=== PATIENT | male | born 1940 | race Caucasian/White ===

== ENCOUNTER 2016-05-02 10:43 | Inpatient (IN) | payer MEDICARE, OTHER ==
[2016-05-02] MEDS ORDERED: IPRATROPIUM/ALBUTEROL 3 ML VIAL NEB ONE ×2 (10:59→13:08)
--- NOTE | 2016-05-02 11:28 | RAD ---
Study: Single Frontal View of the Chest. Indication:sob Comparison: March 20, 2016. Impression: Cardiomegaly. Thoracic aorta tortuous. Atherosclerotic calcifications. Emphysematous changes of the lungs noted with patchy bibasilar scarring. No new consolidation, pleural effusion or pneumothorax. Electronically signed by: Juan Luis Arce MD 05/02/2016 11:25
[2016-05-02] MEDS ORDERED: methylPREDNISolone SODIUM SUC 125 MG/2 ML VIAL IV ONE (13:08)
[2016-05-02] MEDS ORDERED: cefTRIAXone SODIUM 1 GM in SODIUM CHL 0.9% 50ML MIN-BAG+ 50 ML IVPB ONE (13:08)
--- NOTE | 2016-05-02 13:11 | ED.PDOC ---
History of Present Illness - General Chief Complaint: Respiratory Problem Stated Complaint: shortness of breath Time Seen by Provider: 05/02/16 10:58 Source: patient Exam Limitations: no limitations - History of Present Illness Initial Comments: the patient is a 76-year-old male presenting to the emergency room secondary to symptoms of shortness of breath. He has had an escalation in his shortness of breath over the last week. He was seen in clinic 4 days ago. He doesn't think he's had any fevers. He feels like he does have a productive sputum but is having a hard time getting it up. He is weak. He does get more short of breath with lying back. He does have a history of CHF. He does have some mild edema today but states this is not new. No rash. No sore throat. He has had a runny nose. Timing/Duration: 1 week Severity: moderate Improving Factors: nothing Worsening Factors: movement Associated Symptoms: cough, malaise, shortness of breath Allergies/Adverse Reactions: Allergies Hydromorphone [From Dilaudid] Allergy (Verified 05/02/16 12:05) Sulfa Antibiotics Allergy (Verified 05/02/16 12:05) Rash itching Home Medications: Ambulatory Orders Enalapril Maleate 10 mg PO DAILY 01/17/15 Levothyroxine Sodium [Synthroid] 175 mcg PO DAILY 01/17/15 Metoprolol Succinate [Metoprolol Succinate ER] 50 mg PO DAILY 01/17/15 Simvastatin 40 mg PO EVENING 01/17/15 Tamsulosin HCl [Flomax] 0.4 mg PO BID 01/17/15 Arformoterol Tartrate [Brovana] 15 mcg INH BID 04/13/15 Budesonide Inhaler [Pulmicort Flexhaler] 1 puff INH BID 04/13/15 Finasteride 5 mg PO DAILY 04/13/15 Review of Systems - Review of Systems Constitutional: States: malaise EENTM: States: nose congestion Respiratory: States: cough, orthopnea, short of breath, wheezing Cardiology: States: edema Gastrointestinal/Abdominal: States: no symptoms reported Genitourinary: States: no symptoms reported Musculoskeletal: States: no symptoms reported Skin: States: no symptoms reported Neurological: States: no symptoms reported Endocrine: States: no symptoms reported All other Systems: No Change from Baseline Past Medical History (General) - Patient Medical History Hx Seizures: No Hx Stroke: No Hx Dementia: No Hx Asthma: No Hx of COPD: Yes Hx Cardiac Disorders: Yes Hx Congestive Heart Failure: No Hx Pacemaker: No Hx Hypertension: No Hx Thyroid Disease: Yes Hx Diabetes: No Hx Gastroesophageal Reflux: No Hx Renal Disease: No Hx Cancer: No Hx of HIV: No Hx Hepatitis C: No Hx MRSA: Yes - Finger 2015 MRSA Source:: Wound Surgical History: no surgical history - Vaccination History Hx Tetanus, Diphtheria Vaccination: Yes Hx Influenza Vaccination: No Hx Pneumococcal Vaccination: Yes - Social History Hx Tobacco Use: Yes Hx Chewing Tobacco Use: No Hx Alcohol Use: No Hx Substance Use: No Hx Substance Use Treatment: No Hx Depression: No Hx Physical Abuse: No Hx Emotional Abuse: No Hx Suspected Abuse: No - Activities of Daily Living Hospice Agency (if applicable):: None - Female History Patient is a Female of Child Bearing Age (10 -59 yrs old): No Patient : No Family Medical History - Family History Father Family History: Unknown Living Status: Physical Exam - Physical Exam General Appearance: Alert, Obvious distress Eye Exam: bilateral normal Ears, Nose, Throat: normal pharynx, nasal congestion, other - he does have chronic bilateral hearing loss Neck: non-tender, full range of motion, supple Respiratory: chest non-tender, respiratory distress, decreased breath sounds, accessory muscle use, wheezing Cardiovascular/Chest: regular rate, rhythm, no edema Peripheral Pulses: radial,right: 2+, radial,left: 2+, dorsalis pedis,right: 2+, dorsalis pedis,left: 2+ Gastrointestinal/Abdominal: non tender, soft Rectal Exam: deferred Back Exam: normal inspection Extremity: normal range of motion, non-tender, normal inspection, normal capillary refill Neurologic: no motor/sensory deficits, alert, normal mood/affect, oriented x 3 Skin Exam: normal color Comments: Vital Signs - 24 hr 05/02/16 05/02/16 05/02/16 10:50 11:05 11:20 Temperature 98.8 F Pulse Rate 76 Pulse Rate [ 77 73 pulse ox] Respiratory 32 H 24 30 H Rate Blood Pressure 115/56 114/73 [Left Arm] O2 Sat by Pulse 86 L 97 93 L Oximetry 05/02/16 05/02/16 05/02/16 12:00 12:06 12:22 Temperature Pulse Rate Pulse Rate [ 67 68 pulse ox] Respiratory 24 32 H 22 Rate Blood Pressure 94/58 117/65 [Left Arm] O2 Sat by Pulse 93 L 92 L Oximetry 05/02/16 13:03 Temperature Pulse Rate Pulse Rate [ 69 pulse ox] Respiratory 20 Rate Blood Pressure 120/75 [Left Arm] O2 Sat by Pulse 94 L Oximetry Progress - Progress Progress: 05/02/16 13:16 the patient is a 76-year-old male presenting with a acute on chronic COPD exacerbation. The patient is in moderate respiratory distress. He has received several nebulizer treatments which is helping some. He is on higher flow oxygen. He is receiving a dose of Solu-Medrol. He has received a dose of Rocephin as well though I don't see any evidence of overt pneumonia at this time. He does have some mild fluid overload. This is likely due to pulmonary resistance and for the moment I am avoiding diuretics. The patient will be brought in for the COPD exacerbation. He has a very high probability of rapid deterioration if sent home. - Results/Orders Results/Orders: Laboratory Tests 05/02/16 11:15 WBC 4.9 RBC 4.73 Hgb 13.2 L Hct 42.0 MCV 88.8 MCH 27.9 MCHC 31.4 L RDW 15.3 H Plt Count 127 L MPV 8.4 Absolute Neuts (auto) 3.00 Absolute Lymphs (auto) 1.00 Absolute Monos (auto) 0.60 Absolute Eos (auto) 0.20 Absolute Basos (auto) 0.00 Neutrophils % 61.7 Lymphocytes % 20.8 Monocytes % 12.1 H Eosinophils % 5.0 Basophils % 0.4 PT 11.5 INR 1.020 PTT (SP) 30.0 Sodium 145 Potassium 4.5 Chloride 100 L Carbon Dioxide 40 H Anion Gap 9.5 L BUN 22 H Creatinine 1.21 BUN/Creatinine Ratio 18.2 Random Glucose 126 H Serum Osmolality 293.6 Calcium 9.1 Total Bilirubin 0.6 AST 21 ALT 15 Alkaline Phosphatase 50 Creatine Kinase 265 H* CK-MB (CK-2) 5.2 H* CK-MB (CK-2) % 1.96 Troponin I 0.02 B-Natriuretic Peptide 48.6 Serum Total Protein 6.8 Albumin 3.9 Globulin 2.9 Albumin/Globulin Ratio 1.3 chest x-ray is consistent with COPD. No overt large pneumonia or evidence of new fluid overload EKG shows normal sinus rhythm. Poor R-wave progression in anterior leads. No acute ST segment changes otherwise concerning for ischemia. Departure - Departure Clinical Impression: COPD exacerbation Disposition: Admit Patient Condition: Serious Home Medications: Ambulatory Orders Enalapril Maleate 10 mg PO DAILY 01/17/15 Levothyroxine Sodium [Synthroid] 175 mcg PO DAILY 01/17/15 Metoprolol Succinate [Metoprolol Succinate ER] 50 mg PO DAILY 01/17/15 Simvastatin 40 mg PO EVENING 01/17/15 Tamsulosin HCl [Flomax] 0.4 mg PO BID 01/17/15 Arformoterol Tartrate [Brovana] 15 mcg INH BID 04/13/15 Budesonide Inhaler [Pulmicort Flexhaler] 1 puff INH BID 04/13/15 Finasteride 5 mg PO DAILY 04/13/15 Decision To Admit - Decistion To Admit Decision to Admit Reason: Medical Nature Decision to Admit Date: 05/02/16 Decision to Admit Time: 13:18
[2016-05-02] MEDS ORDERED: methylPREDNISolone SODIUM SUC 125 MG/2 ML VIAL ONE (14:12)
[2016-05-02] MEDS ORDERED: cefTRIAXone SODIUM 1 GM VIAL ONE (14:12)
[2016-05-02] MEDS ORDERED: SODIUM CHL 0.9% 50ML MIN-BAG+ 50 ML IVPB ONE (14:12)
--- NOTE | 2016-05-02 14:52 | HP ---
SUPERVISING PHYSICIAN: Drew Viera MD CHIEF COMPLAINT: Increasing shortness of breath. HISTORY OF PRESENT ILLNESS: Mr. Graham is a 76 year-old male patient who presented to the Emergency Department complaining of worsening shortness of breath. He has noted that his shortness of breath over the last week has been slowly worsening. He was seen in the clinic on 04/11/16 with complaints of coughing, subjective fever, weakness and edema. He was then given a prescription for Levaquin for 10 days, prednisone tapering Dosepak and instructed to increase his Lasix to twice a day until his swelling had decreased. A chest x-ray in the clinic per radiology interpretation on showed just hyperextended lungs but no infiltrates or effusions noted. He denies that he has been running fever but has been slowly producing am more productive cough but having a difficult getting the sputum enough. He has noticed that he has slowly weakened over the last several weeks and has significant shortness of breath with any supine position. He does have a history of congestive heart failure and has had some mild edema over the last several days which he was given the Lasix for previously. It is noted that in the last week, his son who had pancreatic cancer recently passed and he has had a lot of family in the house but denies anyone that has been ill. However, he has been out of his routine for his medications and stuff periodically and feels like maybe this has resulted in some of his worsening in shortness of breath. He does wear chronic 02, 24 hours. Given that he has had a significant decrease in his clinical condition with worsening of his chronic obstructive pulmonary disease and having to respond inadequately to treatment in the last week for acute bronchitis, now with a worsening purulent sputum and increase in dyspnea, the patient will be admitted to the medical/surgical floor for continuation of treatment and evaluation. PAST MEDICAL HISTORY: 1. Benign prostatic hypertrophy. 2. Coronary artery disease. 3. Chronic obstructive pulmonary disease requiring chronic 02. 4. Hypertension. 5. Hypothyroidism. PAST SURGICAL HISTORY: 1. Coronary artery stent placement. 2. Vasectomy. 3. Colonoscopy in 2007. CURRENT MEDICATIONS: 1. Ketoconazole 2% external b.i.d. 3. Lasix 40 mg b.i.d. 4. Probiotic one tablet daily. 5. Potassium chloride 10 mEq daily. 6. Bactroban 2% ointment daily. 7. Prednisone 20 mg daily. 8.. Recently finished Levaquin 5 mg daily for 10 days. 9. Simvastatin 40 mg at bedtime. 10. Metoprolol 50 mg. 11. Enalapril 10 mg daily. 12. Pulmicort 1 puff inhaled twice a day. 13. Finasteride 5 mg daily. 14. Brovana 15 mcg twice a day 15. Synthroid 175 mcg daily. 16. Flomax 0.4 mg twice a day. ALLERGIES: HYDROMORPHONE AND SULFA ANTIBIOTIC FAMILY HISTORY: Positive for colon cancer. SOCIAL HISTORY: Patient is retired. He is , has 4 children, one son recently from pancreatic cancer. He lives in [place]. He is noted to be a current smoker, smoking anywhere from a half to one pack a day. He does drink alcohol on a social basis. REVIEW OF SYSTEMS: CONSTITUTIONAL: Denies any fevers, chills, unintentional weight loss or gain but notes he has increase in fatigue. HEENT: He is extremely hard of hearing. He wears bilateral hearing aids. He denies any rhinorrhea or sore throats. CARDIOVASCULAR: Denies chest pains but notes he has orthopnea and some pedal edema and worsening dyspnea on exertion as noted in the history of present illness. RESPIRATORY: Notes increasing cough and increasing dyspnea as noted in the history of present illness. GASTROINTESTINAL: Denies abdominal pain, constipation, diarrhea or nausea. GENITOURINARY: He does have a history of elevated PSA and benign prostatic hypertrophy. He denies any dysuria or any other significant urinary symptoms. PHYSICAL EXAMINATION: VITAL SIGNS: Temperature 98.8, 02 saturation initially 86% on nasal cannula at 2 liters with significant respirations at 32. Blood pressure 115/56, heart rate 77. After treatment with Duoneb and prior to admission to the medical/ surgical floor, the patient was showing respirations of 20 to 22, saturation 94 % on nasal cannula at 3 liters with a blood pressure of 111/66. Admission weight was 113.3 kg. GENERAL: The patient is alert and on examination in the Emergency Department he did show to be in some obvious distress secondary to increasing efforts to breathe, however, after breathing treatments and at time of medical/surgical floor admission the patient was in no acute distress. He was showing continued purse-lip breathing which he notes is his normal pattern and he was alert and oriented x 3. HEENT: Tympanic membranes are not visualized secondary to bilateral hearing aids. Oropharynx was pink, moist without any lesions. There was just some mild nasal congestion noted but no drainage. NECK: No jugular venous distention. CHEST: Notable for decreased breath sounds throughout and some mild accessory muscle use initially with diffuse inspiratory and expiratory wheezing. CARDIOVASCULAR: Regular rate and rhythm without appreciable murmurs, rubs, or gallops. ABDOMEN: Soft, non-tender, positive bowel sounds. EXTREMITIES: No cyanosis, clubbing, or edema. NEUROLOGIC: He is alert and oriented x 3. Cranial nerves II through XII are grossly intact. Facial features were symmetrical. Extraocular movements were within normal limits. There was no notable neuromotor deficits. LABORATORY: White count 4.9, hemoglobin 13.2, hematocrit 42.0, platelet count 127,000, differential showed no left shift. Coagulation studies showed a normal PT/PTT. Chemistries showed a potassium of 4.5, carbon dioxide 40, BUN 22 , creatinine 1.21, glucose 126, liver functions within normal limits. CPK elevated at 265 but troponin was 0.02. Alkaline phosphatase 50. Urinalysis pending. BNP 48.6. MICROBIOLOGY: Blood cultures were completed. Influenza A antigen prior to admission was noted to be negative for both A and B. Sputum cultures pending. RADIOLOGY: Chest x-ray in the Emergency Department prior to admission per radiology interpretation showed emphysematous changes in the lungs with patchy bibasilar scarring but no new consolidations, pleural effusions or pneumothorax. ASSESSMENT: 1. Acute exacerbation of chronic obstructive pulmonary disease having failed to respond to outpatient treatment plan with concerns now for early development of pneumonia with radiographic evidence of bibasilar opacities with patient being hypoxic at 85% on 2 liters nasal cannula at rest. 2. History of peripheral edema likely secondary to his cor pulmonale from advanced chronic obstructive pulmonary disease resulting in some right-sided failure with no echocardiogram available upon review of medical records. 3. Chronic obstructive pulmonary disease in a smoker currently using 23/10. 4. Benign prostatic hypertrophy with history of previous elevated PSA. 5. Coronary artery disease. 6. Hypertension. 7. Hypothyroidism. PLAN: The patient was admitted per his chronic chronic obstructive pulmonary disease exacerbation. He was in moderate respiratory distress initially in the Emergency Room, however, with breathing treatments he did improve. He was given Solu-Medrol 125 mg and started on Rocephin. Will plan to start him on azithromycin as well as the Rocephin with concerns for bilateral pneumonia likely community acquired having recently been on a 10-day course of Levaquin. Will start him on DVT prophylaxis as per protocol. Will start him back on his medications once they have been updated in the electronic medical records. Will anticipate his length of stay to be 2 to 3 days. Until the, we will continue to monitor the patient closely. At time discharge the patient will need close followup with his primary care physician, Dr. Rea. #[id number] [facility] [place]
[2016-05-02] MEDS ORDERED: ACETAMINOPHEN 325 MG TAB PO PRN (16:36)
[2016-05-02] MEDS ORDERED: ALBUTEROL SULFATE 2.5 MG/3 ML VIAL NEB PRN (16:36)
[2016-05-02] MEDS ORDERED: SODIUM CHLORIDE 0.9% (FLUSH) 10 ML SYG IV PRN (16:36)
[2016-05-02] MEDS ORDERED: IV SET AND CAP CHANGE INJ INJ SCH (17:00)
[2016-05-02] MEDS ORDERED: AZITHROMYCIN IV 500 MG VIAL IVPB ONE (17:31)
[2016-05-02] MEDS ORDERED: SODIUM CHLORIDE 0.9% 250ML 250 ML ONE (17:31)
[2016-05-02] MEDS: AZITHROMYCIN IV 500 MG in SODIUM CHLORIDE 0.9% 250ML 250 ML IVPB SCH (17:37)
[2016-05-02] MEDS: IPRATROPIUM/ALBUTEROL 3 ML VIAL NEB SCH ×2 (18:06→20:40)
--- NOTE | 2016-05-02 18:14 | PCM.CORE ---
Physician DVT/VTE - Nurse DVT Assessment & Total Each Risk Factor Represents 3 Points: Age over 75 years, Medical PT with Hx of GA, CHF, Severe infection/sepsis Each Risk Factor is 1 Point: Serious Lung disease (pnemonia <1month, COPD, emphysema,etc) DVT Assessment Score: 7 - 5 or more Very High Risk Treatments: Early Ambulation *, Sequential Compression Device Pharmacological: Enoxaparin 40mg SQ Daily
[2016-05-02] MEDS: ENOXAPARIN SODIUM 40 MG/0.4 ML SYG SUBCU SCH (18:32)
[2016-05-02] MEDS: methylPREDNISolone SODIUM SUC 125 MG/2 ML VIAL IV SCH (21:14)
[2016-05-03] MEDS: methylPREDNISolone SODIUM SUC 125 MG/2 ML VIAL IV SCH ×4 (03:15→21:12)
[2016-05-03] MEDS: PANTOPRAZOLE SODIUM IV 40 MG VIAL IV SCH (06:06)
--- NOTE | 2016-05-03 07:32 | RAD ---
EXAM DESCRIPTION: XR CHEST 2 VIEWS CLINICAL HISTORY: Pneumonia COMPARISON: 05/02/2016 TECHNIQUE: Two-views of the chest. FINDINGS: Heart size top limits normal. Tortuous atherosclerotic aorta. Hyperinflation related to COPD. No pulmonary edema, alveolar infiltrate or effusion No acute bony abnormality IMPRESSION: Hyperinflation related to COPD No acute infiltrate Electronically signed by: Drew Ott MD 05/03/2016 07:30
[2016-05-03] MEDS ORDERED: SODIUM CHLORIDE 0.9% 250ML 250 ML ONE (07:39)
[2016-05-03] MEDS ORDERED: SODIUM CHL 0.9% 50ML MIN-BAG+ 50 ML IVPB ONE (07:39)
[2016-05-03] MEDS ORDERED: cefTRIAXone SODIUM 1 GM VIAL ONE (07:39)
[2016-05-03] MEDS ORDERED: AZITHROMYCIN IV 500 MG VIAL IVPB ONE (07:40)
[2016-05-03] MEDS: IPRATROPIUM/ALBUTEROL 3 ML VIAL NEB SCH ×4 (08:35→20:37)
[2016-05-03] MEDS ORDERED: cefTRIAXone SODIUM 1 GM in SODIUM CHL 0.9% 50ML MIN-BAG+ 50 ML IVPB SCH (13:00)
[2016-05-03] MEDS ORDERED: SODIUM CHLORIDE 0.9% 10 ML VIAL INJ PRN (13:05)
[2016-05-03] MEDS ORDERED: NON-FORMULARY MEDICATION 1 EA MIS (Levothyroxine Sodium [Synthroid] 175 MCG) PO SCH (16:15)
[2016-05-03] MEDS ORDERED: NON-FORMULARY MEDICATION 1 EA MIS (Enalapril Maleate [Enalapril Maleate] 10 MG) PO SCH (16:15)
[2016-05-03] MEDS ORDERED: METOPROLOL TARTRATE 50 MG TAB PO SCH (16:30)
--- NOTE | 2016-05-03 17:02 | PN ---
DATE: 05/03/16 SUBJECTIVE: The patient is sitting up in the bed and appears to be less dyspneic than yesterday. He is very [id number] and has been unable to satisfactorily have hearing aids fitted for his benefit. Appetite is fairly good. He is able to talk in fairly complete sentences. He has not been ambulating so an ambulation study is ordered. He has been on 3 liters instead of the usual 2 liters and even then his saturations have only been 91 to 93% and will require reevaluation. On continued corticosteroids which will be tapered and continued with respiratory hygiene treatments. OBJECTIVE: Afebrile, pulse 88, blood pressure 120/71, pulse oximetry 92% on 3 liters. LUNGS: Have some diminished breath sounds with occasional rhonchi, especially lateral lung moore more on the left than the right. HEART: Tones are regular. ABDOMEN: Obese. Noted to have his CPAP machine here which will be endeavored to be used either during the day when dyspneic or at nighttime to assist with sleep. No significant pedal edema at this time. LABORATORY: White count 4,300, hemoglobin 12.1. INR 1.02. Chemistries showed potassium 4.8, BUN 30, creatinine 1.2. CO2 has come down from 40 to 33, glucose 178. Blood cultures negative. Influenza A and B negative. Repeat chest x-ray that was performed earlier this morning showed COPD with no acute infiltrates present. ASSESSMENT: 1. Chronic obstructive pulmonary disease with an acute exacerbation requiring additional pulmonary hygiene, bronchodilation and corticosteroid administration. 2. Fairly significant hypoxia with pulse oximetry 85% on 2 liters and now 91% on 3 liters with him normally being on 2 liters at home suggesting a change with continued ambulation studies to help evaluate the physiology. 3. History of peripheral edema probably secondary to cor pulmonale with advanced chronic obstructive pulmonary disease. 4. Chronic tobacco abuser in the past having stopped in the past. 5. History of benign prostatic hypertrophy with a history of previously elevated PSA. 6. History of coronary artery disease. 7. History of hypertension. 8. History of hypothyroidism on supplementation. PLAN: Will cut back on the Solu-Medrol. Continue pulmonary hygiene. Await results of ambulation studies and reevaluate in the morning at which time the patient will be able to continue with outpatient therapy as stable. #[id number] [facility]
[2016-05-03] MEDS ORDERED: LEVOTHYROXINE SODIUM 0.075 MG TAB ONE (17:38)
[2016-05-03] MEDS ORDERED: ENALAPRIL MALEATE 5 MG TAB ONE ×2 (17:38→17:52)
[2016-05-03] MEDS ORDERED: METOPROLOL TARTRATE 25 MG TAB ONE (17:38)
[2016-05-03] MEDS: AZITHROMYCIN IV 500 MG in SODIUM CHLORIDE 0.9% 250ML 250 ML IVPB SCH (17:46)
[2016-05-03] MEDS: POTASSIUM CHLORIDE 10 MEQ TAB PO SCH (17:46)
[2016-05-03] MEDS: ENOXAPARIN SODIUM 40 MG/0.4 ML SYG SUBCU SCH (17:55)
[2016-05-03] MEDS ORDERED: BUDESONIDE INH SCH (21:00)
[2016-05-03] MEDS ORDERED: NON-FORMULARY MEDICATION 1 EA MIS (Arformoterol Tartrate [Brovana] 15 MCG) INH SCH (21:00)
[2016-05-03] MEDS: TAMSULOSIN 0.4 MG CAP PO SCH (21:12)
[2016-05-04] MEDS: PANTOPRAZOLE SODIUM IV 40 MG VIAL IV SCH (06:13)
[2016-05-04] MEDS ORDERED: FINASTERIDE 5 MG TAB ONE (07:21)
[2016-05-04] MEDS ORDERED: SODIUM CHLORIDE 0.9% 250ML 0 ML ONE (07:21)
[2016-05-04] MEDS ORDERED: cefTRIAXone SODIUM 1 GM VIAL ONE (07:22)
[2016-05-04] MEDS ORDERED: SODIUM CHL 0.9% 50ML MIN-BAG+ 0 ML IVPB ONE (07:22)
[2016-05-04] MEDS ORDERED: METOPROLOL TARTRATE 50 MG TAB ONE (07:22)
[2016-05-04] MEDS ORDERED: ENALAPRIL MALEATE 5 MG TAB ONE (07:22)
[2016-05-04] MEDS ORDERED: AZITHROMYCIN IV 500 MG VIAL IVPB ONE (07:23)
[2016-05-04] MEDS ORDERED: METOPROLOL TARTRATE 50 MG TAB PO SCH (07:30)
[2016-05-04] MEDS: IPRATROPIUM/ALBUTEROL 3 ML VIAL NEB SCH ×2 (08:41→13:58)
[2016-05-04] MEDS: FUROSEMIDE 40 MG TAB PO SCH ×2 (08:55→08:56)
[2016-05-04] MEDS: TAMSULOSIN 0.4 MG CAP PO SCH (08:57)
[2016-05-04] MEDS: POTASSIUM CHLORIDE 10 MEQ TAB PO SCH (08:57)
[2016-05-04] MEDS: methylPREDNISolone SODIUM SUC 125 MG/2 ML VIAL IV SCH (08:58)
[2016-05-04] MEDS ORDERED: SODIUM CHLORIDE 0.9% (FLUSH) 10 ML SYG IV SCH (09:00)
[2016-05-04] MEDS ORDERED: NON-FORMULARY MEDICATION 1 EA MIS (Arformoterol Tartrate [Brovana] 15 MCG) INH SCH (09:00)
[2016-05-04] MEDS ORDERED: ENALAPRIL MALEATE 5 MG TAB PO SCH (09:00)
[2016-05-04] MEDS ORDERED: FINASTERIDE 5 MG TAB PO SCH (09:00)
[2016-05-04] MEDS ORDERED: BUDESONIDE INH SCH (09:00)
[2016-05-04 11:43] VITALS: BP 137/79; TEMP 97.3; O2SAT 95
--- NOTE | 2016-05-04 13:20 | DS ---
DISCHARGE DIAGNOSIS: 1. Chronic obstructive pulmonary disease with an acute exacerbation requiring additional pulmonary hygiene, bronchodilator treatment, and corticosteroid administration and education. 2. Significant hypoxia with pulse oximetry 85% on 2 liters, now improving to the point where he is able to continue with outpatient therapy. 3. History of peripheral edema, probably secondary to right sided heart failure with cor pulmonale with advanced chronic obstructive pulmonary disease evident. 4. Chronic tobacco use, having stopped in the past. 5. History of benign prostatic hypertrophy with previously elevated PSA. 6. History of coronary artery disease. 7. History of hypertension. 8. History of hypothyroidism on supplementation. 9. History of significant deafness requiring specialized ongoing care and reevaluation to assist his hearing. HISTORY OF PRESENT ILLNESS: This 76-year-old, white male was admitted to the hospital from the Emergency Room complaining of worsening shortness of breath. He was noted to have worsening condition over the week prior to admission. He has had some coughing, some weakness, and associated edema state. He had been on some Levaquin as an outpatient with prednisone tapering and not doing better , so was admitted to the hospital for specific increased intensity of treatment to prevent further worsening of his ongoing condition. He is on chronic oxygen all day long, usually at 2 liters, up to 3 liters when exerting, which will need to continue with special attention to his pulse oximetry. The patient was admitted to the hospital for a few days of more vigorous therapy with bronchodilators, pulmonary hygiene, corticosteroids and an antibiotic course to be initiated, having failed outpatient treatment. LABORATORY: CO2 initially was elevated at 40, down to 33. Potassium 4.8, BUN 30, creatinine 1.2, glucose 178, calcium normal at 9. Liver enzymes normal. Troponin 0.02. Beta natriuretic peptide 48, albumin 3.9. Blood cultures negative. Influenza A/B screen negative. Chest x-ray close to discharge does reveal evidence of chronic obstructive pulmonary disease, but no significant pulmonary edema or infiltrates evident. HOSPITAL COURSE: The patient was feeling improved on the day of discharge and was ready to have continued outpatient management with Dr. Rea. The patient' s condition and decisions to be made are discussed at length with the patient and his son and [id number]. PLAN: Discharge home with followup with Dr. Rea in a week. Dr. Rea will especially observe closely his emphysema. His significantly decreased hearing will need to have continued expert clinical followup and reevaluation even with second opinions as needed. See home medications to which is added a completed course of azithromycin for 4 days 250 mg daily and Ceftin 500 mg b.i.d. for 6 days, prednisone 10 mg daily for 20 days, and Bumex every other day as needed when gaining over 3 to 6 pounds with associated reduction in oral intake, #25 given on a p.r.n. basis only. He will use his medication nebulizer treatments faithfully. Use oxygen to keep pulse oximetry between 90% and 92% only. Breathe deeply and exhale through pursed lips. Increase walking to improve endurance and strength and part of his pulmonary rehab. Observe his dry weight daily and note of gaining of over 4 to 6 pounds at which time he can decrease fluid intake to less than 1500 mL per 24 hours and to take the Bumex every other day until his weight is down to a regular weight and edema is improved. Stay active. Return if not improving. [facility][id number] [facility]
[2016-05-05] MEDS ORDERED: LEVOTHYROXINE SODIUM PO SCH ×2 (06:30)
== END 2016-05-04 12:00 | disposition home or self-care (01) | DRG 192 ==
LOC: ER 10:43 → MS 14:50 → OBSVTOIN 14:50
PROVIDERS: ADMIT Nurse Practitioner Family; ATTEND Emergency Medicine
DX: J44.1 Chronic obstructive pulmonary disease with (acute) exacerbation (principal); R09.02 Hypoxemia; I27.81 Cor pulmonale (chronic); I11.0 Hypertensive heart disease with heart failure; I50.9 Heart failure, unspecified; N40.0 Benign prostatic hyperplasia without lower urinary tract symptoms; I25.10 Atherosclerotic heart disease of native coronary artery without angina pectoris; E03.9 Hypothyroidism, unspecified; H91.90 Unspecified hearing loss, unspecified ear; F17.210 Nicotine dependence, cigarettes, uncomplicated; Z99.81 Dependence on supplemental oxygen; Z95.5 Presence of coronary angioplasty implant and graft; Z79.52 Long term (current) use of systemic steroids; Z79.51 Long term (current) use of inhaled steroids; Z79.899 Other long term (current) drug therapy; Z88.2 Allergy status to sulfonamides; Z88.5 Allergy status to narcotic agent

== ENCOUNTER 2017-01-04 16:05 | Inpatient (IN) | payer MEDICARE, OTHER ==
[2017-01-04] MEDS ORDERED: methylPREDNISolone SODIUM SUC 125 MG/2 ML VIAL IV ONE (16:23)
[2017-01-04] MEDS ORDERED: IPRATROPIUM/ALBUTEROL 3 ML VIAL NEB ONE (16:24)
[2017-01-04] MEDS ORDERED: diphenhydrAMINE HCL 25 MG CAP PO ONE (16:24)
[2017-01-04] MEDS ORDERED: MONTELUKAST 10 MG TAB PO ONE (16:24)
[2017-01-04] MEDS ORDERED: ACETAMINOPHEN 325 MG TAB PO ONE (16:25)
--- NOTE | 2017-01-04 16:42 | RAD ---
EXAM DESCRIPTION: Chest,1 View CLINICAL HISTORY: sob, facial swelling COMPARISON: May 03, 2016 IMPRESSION: Single AP portable upright view of the chest shows enlargement of the cardiac silhouette with a left ventricular contour. There is tortuosity the thoracic aorta with calcifications of the aortic arch. Lungs are normally aerated and clear. No obvious pleural effusion or pneumothorax is seen. Electronically signed by: Miguel Angel John MD 01/04/2017 4:41 PM CDT
[2017-01-04] MEDS ORDERED: AZITHROMYCIN IV 500 MG in SODIUM CHLORIDE 0.9% 250ML 250 ML IVPB ONE (17:21)
[2017-01-04] MEDS ORDERED: cefTRIAXone SODIUM 1 GM in SODIUM CHL 0.9% 50ML MIN-BAG+ 50 ML IVPB ONE (17:21)
--- NOTE | 2017-01-04 17:33 | ED.PDOC ---
History of Present Illness - General Chief Complaint: Fever Stated Complaint: fever, sob Time Seen by Provider: 01/04/17 16:23 Source: patient, family Exam Limitations: no limitations - History of Present Illness Initial Comments: he patient is a 76-year-old male presenting to the emergency room secondary toprogressive shortness of breath over the last 24 hours with some associated facial swelling and conjunctivitis. The patient does have a fever. According to his relative he has had these episodes before that event related to allergic triggers. He has had multiple admissions for COPD exacerbations and has required BiPAP in the past. He did present to his primary care doctor today after which he was sent here. We do have records from his primary care doctor's office. the patient does have markedly increased work of breathing. His oxygen saturations are down to 72% on room air and 84% on his 2 L nasal cannula. He is up to 93% on 3-1/2 L here. He is not in pain. His cough is minimally productive. He does have significant facial swelling. There is no stridor. He is not itching. He does have a conjunctivitis present. Timing/Duration: 24 hours Severity: severe Improving Factors: nothing Worsening Factors: nothing Associated Symptoms: cough, fever/chills, loss of appetite, malaise, shortness of breath Allergies/Adverse Reactions: Allergies Hydromorphone [From Dilaudid] Allergy (Verified 01/04/17 16:37) Sulfa Antibiotics Allergy (Verified 01/04/17 16:37) Rash itching Home Medications: Ambulatory Orders Enalapril Maleate 10 mg PO DAILY 01/17/15 Levothyroxine Sodium [Synthroid] 175 mcg PO DAILY 01/17/15 Simvastatin 40 mg PO BEDTIME 01/17/15 Tamsulosin HCl [Flomax] 0.4 mg PO BID 01/17/15 Arformoterol Tartrate [Brovana] 15 mcg INH BID 04/13/15 Metoprolol Tartrate 50 mg PO DAILY 05/02/16 Finasteride [Proscar] 5 mg PO DAILY 01/04/17 Review of Systems - Review of Systems Constitutional: States: fever, malaise EENTM: States: nose congestion Respiratory: States: cough, short of breath, wheezing Cardiology: States: no symptoms reported Gastrointestinal/Abdominal: States: no symptoms reported Genitourinary: States: no symptoms reported Musculoskeletal: States: no symptoms reported Skin: States: no symptoms reported Neurological: States: no symptoms reported Endocrine: States: no symptoms reported All other Systems: No Change from Baseline Past Medical History (General) - Patient Medical History Hx Seizures: No Hx Stroke: No Hx Dementia: No Hx Asthma: No Hx of COPD: Yes Hx Cardiac Disorders: Yes Hx Congestive Heart Failure: No Hx Pacemaker: No Hx Hypertension: Yes Hx Thyroid Disease: Yes Hx Diabetes: No Hx Gastroesophageal Reflux: No Hx Renal Disease: No Hx Cancer: No Hx of HIV: No Hx Hepatitis C: No Hx MRSA: No MRSA Source:: Wound Surgical History: appendectomy - Vaccination History Hx Tetanus, Diphtheria Vaccination: Yes Hx Influenza Vaccination: No Hx Pneumococcal Vaccination: No - Social History Hx Tobacco Use: Yes Hx Chewing Tobacco Use: No Hx Alcohol Use: No Hx Substance Use: No Hx Substance Use Treatment: No Hx Depression: No Hx Physical Abuse: No Hx Emotional Abuse: No Hx Suspected Abuse: No - Female History Patient : No Family Medical History - Family History Father Family History: Unknown Living Status: Physical Exam - Physical Exam General Appearance: Alert, Other - the patient has obvious facial swelling. He has obvious increased work of breathing. Eye Exam: bilateral other - bilateral conjunctivitis. Possibly allergic but possibly infectious. Ears, Nose, Throat: normal pharynx, nasal congestion, other - ignificantly decreased hearing bilaterally. 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 He is receiving IV steroids, Singulair, DuoNeb nebs and additional oxygen. He is being covered with Rocephin and azithromycin in case there is an infectious component. He has tested negative for the flu. The patient does appear to be having a significant allergic reaction based upon his facial swelling. The steroids and Singulair should help with that along with a dose of Benadryl. He has received Tylenol for the fever. He has historically required BiPAP in the past. For now I do not believe that is warranted however if he worsens that would be a reasonable next step. The patient will be covered for the possibility of a infectious conjunctivitis with eye drops. The conjunctivitis however is most likely allergic. Admit for further care. - Results/Orders Results/Orders: chest x-ray shows COPD but no definite infiltrate. Laboratory Tests 01/04/17 01/04/17 16:35 16:35 WBC 10.3 RBC 4.98 Hgb 13.9 L Hct 43.2 MCV 86.6 MCH 27.9 MCHC 32.1 L RDW 15.5 H Plt Count 149 MPV 8.0 Absolute Neuts (auto) 8.70 H Absolute Lymphs (auto) 0.70 L Absolute Monos (auto) 0.80 Absolute Eos (auto) 0.10 Absolute Basos (auto) 0.00 Neutrophils % 83.9 H Lymphocytes % 7.0 L Monocytes % 8.0 Eosinophils % 0.9 L Basophils % 0.2 Sodium 140 Potassium 4.2 Chloride 96 L Carbon Dioxide 37 H Anion Gap 11.2 L BUN 21 H Creatinine 1.08 BUN/Creatinine Ratio 19.4 Random Glucose 127 H Serum Osmolality 284.0 Calcium 9.2 Magnesium 1.9 Total Bilirubin 1.0 AST 18 ALT 13 Alkaline Phosphatase 48 Creatine Kinase 177 H CK-MB (CK-2) 3.8 CK-MB (CK-2) % Not Reportable Troponin I 0.02 B-Natriuretic Peptide 54.0 Serum Total Protein 7.2 Albumin 3.9 Globulin 3.3 Albumin/Globulin Ratio 1.2 EKG shows normal sinus rhythm at a rate of 97 bpm. Borderline prolongation of the QT interval. Poor R-wave progression in anterior leads. No definite acute ST segment changes concerning for ischemia. Possibly a partial right bundle branch block as well. Departure - Departure Clinical Impression: COPD with exacerbation, Respiratory distress Conjunctivitis Qualifiers: Conjunctivitis type: unspecified Laterality: bilateral Qualified Code(s): H10.9 - Unspecified conjunctivitis Allergic reaction Qualifiers: Encounter type: initial encounter Qualified Code(s): T78.40XA - Allergy, unspecified, initial encounter Disposition: Admit Patient Referrals: Aidan Rea MD [Primary Care Provider] - 1-2 Weeks Home Medications: Ambulatory Orders Enalapril Maleate 10 mg PO DAILY 01/17/15 Levothyroxine Sodium [Synthroid] 175 mcg PO DAILY 01/17/15 Simvastatin 40 mg PO BEDTIME 01/17/15 Tamsulosin HCl [Flomax] 0.4 mg PO BID 01/17/15 Arformoterol Tartrate [Brovana] 15 mcg INH BID 04/13/15 Metoprolol Tartrate 50 mg PO DAILY 05/02/16 Finasteride [Proscar] 5 mg PO DAILY 01/04/17 Decision To Admit - Decistion To Admit Decision to Admit Reason: Medical Nature Decision to Admit Date: 01/04/17 Decision to Admit Time: 17:37
[2017-01-04] MEDS ORDERED: cefTRIAXone SODIUM 1 GM VIAL ONE (17:43)
[2017-01-04] MEDS ORDERED: SODIUM CHL 0.9% 50ML MIN-BAG+ 50 ML IVPB ONE (17:44)
[2017-01-04] MEDS ORDERED: SODIUM CHLORIDE 0.9% 250ML 250 ML ONE (18:03)
[2017-01-04] MEDS ORDERED: AZITHROMYCIN IV 500 MG VIAL IVPB ONE (18:03)
--- NOTE | 2017-01-04 18:57 | HP ---
SUPERVISING PHYSICIAN: Anjum West M.D. CHIEF COMPLAINT: Shortness of breath and pink eye. HISTORY OF PRESENT ILLNESS: This is a 76 year-old male patient who went to see his primary care physician, Dr. Rea, this morning for the pink eye. While he was at his primary care physician's office he complained of some shortness of breath. His oxygen saturations were down to 72% on room air at his clinic appointment and it came up to 84% on 2 liters nasal cannula. He was sent to the Emergency Room. His oxygen had to be titrated up to 3.5 liters and his saturations came up to the low 90s. He also has periorbital edema that he gets frequently due to seasonal allergies, but he also has a lot of drainage from both eyes which he also says he gets frequently. He was given some steroids in the Emergency Room as well as breathing treatments. He was also started on Rocephin and Azithromycin. Blood cultures were drawn. His labs in the E. R. showed WBC 10.3 with a left shift. Hemoglobin was 13.9 with hematocrit of 43.2. Sodium 140, potassium 4.2, chloride 96, carbon dioxide 37, BUN 21, creatinine 1.08, glucose 127, calcium 9.2, magnesium 1.9. Creatinine kinase was elevated at 177 but his cardiac enzymes were negative. BNP was 54. Chest x -ray per radiology interpretation showed lungs are normally aerated and clear. No obvious pleural effusion or pneumothorax is seen. I was called for admission to the hospital. PAST MEDICAL HISTORY: 1. Benign prostatic hypertrophy. 2. Hyperlipidemia. 3. Hypertension. 4. Hypothyroidism. 5. Coronary artery disease. 6. Seasonal allergies. PAST SURGICAL HISTORY: 1. Coronary artery stent placement times 2. 2. Vasectomy. 3. Hernia repair. CURRENT MEDICATIONS: ALLERGIES: DILAUDID AND SULFA. SOCIAL HISTORY: He is retired. He is . He has 4 children. He quit smoking about 3 years ago, but prior to that he had smoked 2 packs a day since he was age 16. He drinks alcoholic beverages on a social basis, only he denies any ETOH use. REVIEW OF SYSTEMS: GENERAL: Positive for fever. Negative for fatigue or chills or weight changes. HEENT: Positive for swelling around both eyes as well as drainage from both eyes and being [id number]. Negative for vision changes, ear pain, sinus symptoms or sore throat. RESPIRATORY: As per history of present illness. CARDIOVASCULAR: Negative for chest pain, tachycardia or palpitations. GASTROINTESTINAL: Negative for abdominal pain, nausea, vomiting, diarrhea or constipation. MUSCULOSKELETAL: Negative for arthralgias, back pain or myalgias. GENITOURINARY: Negative for dysuria, hematuria or nocturia. NEUROLOGIC: Negative for headaches, dizziness or seizures. PHYSICAL EXAMINATION: VITAL SIGNS: Temperature was 101.2, pulse rate was as high as 100 but is now 73 , blood pressure 143/76, respiratory rate is 28 and is now 22. His initial oxygen saturation was 75% in the Emergency Room and is now running between 88 and 94%. GENERAL: This is a 76 year-old obese male patient who is lying in his hospital bed. HEENT: Normocephalic and atraumatic. Pupils are equal and reactive, but he has significant periorbital edema. His conjunctiva are erythematous and there is purulent drainage from both eyes. Oropharynx is clear. Oral mucous membranes are moist. NECK: Supple without mass. CHEST: He is tachypneic. He has decreased breath sounds throughout and there are expiratory wheezes noted throughout. CARDIOVASCULAR: Regular rate, irregular rhythm. ABDOMEN: Soft, nondistended, non-tender. Bowel sounds are positive. EXTREMITIES: No cyanosis, clubbing or edema. NEUROLOGIC: He is awake, alert and oriented times three but he is very hard-of- hearing. LABORATORY: Labs and films are as per the history of present illness. ASSESSMENT: 1. Acute exacerbation of chronic obstructive pulmonary disease in a patient that has a longstanding history of tobacco abuse. He quit smoking approximately 3 years ago. 2. Acute bilateral bacterial conjunctivitis. 3. Periorbital edema secondary to conjunctivitis and seasonal allergies. 4. Seasonal allergies. 5. Hypertension. 6. Hyperlipidemia. 7. Coronary artery disease. 8. Hypothyroidism. 9. Benign prostatic hypertrophy. PLAN: We will admit the patient to the hospital. I will do routine lab in the morning. I have ordered steroids and those will need to be tapered tomorrow. I have also ordered breathing treatments and bronchial hygiene. I will also do lab and x-ray in the morning. I will continue his Rocephin and Azithromycin as well as do a flu swab. I have also ordered a sputum culture and Gentamicin eye drops. If needed, he can be placed on BiPAP tonight if his saturations are low. I will also order an ABG. We will continue to monitor the patient closely and follow as needed. Dr. West is the collaborating physician available for consultation. #[id number] MTDD
[2017-01-04] MEDS ORDERED: ALBUTEROL SULFATE 2.5 MG/3 ML VIAL NEB PRN (19:27)
[2017-01-04] MEDS ORDERED: SODIUM CHLORIDE 0.9% (FLUSH) 10 ML SYG IV PRN (19:27)
[2017-01-04] MEDS ORDERED: IV SET AND CAP CHANGE INJ INJ SCH (19:30)
[2017-01-04] MEDS: SODIUM CHLORIDE 0.9% (FLUSH) 10 ML SYG IV SCH (19:53)
[2017-01-04] MEDS: methylPREDNISolone SODIUM SUC 125 MG/2 ML VIAL IV SCH (19:57)
[2017-01-04] MEDS ORDERED: ENOXAPARIN SODIUM 40 MG/0.4 ML SYG SUBCU SCH (20:00)
[2017-01-04] MEDS ORDERED: PANTOPRAZOLE SODIUM IV 40 MG VIAL IV SCH (20:00)
[2017-01-04] MEDS: ARFORMOTEROL TARTRATE 15 MCG/2 ML NEB NEB SCH (20:17)
[2017-01-04] MEDS: IPRATROPIUM/ALBUTEROL 3 ML VIAL INH SCH (20:20)
[2017-01-04] MEDS ORDERED: SIMVASTATIN 20 MG TAB ONE (20:58)
[2017-01-04] MEDS ORDERED: BUDESONIDE NEBS 0.25 MG/2 ML INH INH SCH (21:00)
[2017-01-04] MEDS: TAMSULOSIN 0.4 MG CAP PO SCH (21:00)
[2017-01-04] MEDS ORDERED: NON-FORMULARY MEDICATION 1 EA MIS (Simvastatin [Simvastatin] 40 MG) PO SCH (21:00)
[2017-01-04] MEDS: GENTAMICIN 0.3% OPHTH SOL 1 DROP BOTH_EYES SCH (21:00)
[2017-01-05] MEDS ORDERED: SODIUM CHL 0.9% 50ML MIN-BAG+ 50 ML IVPB ONE ×3 (02:19→19:49)
[2017-01-05] MEDS ORDERED: cefTRIAXone SODIUM 1 GM VIAL ONE ×3 (02:19→19:50)
[2017-01-05] MEDS: methylPREDNISolone SODIUM SUC 125 MG/2 ML VIAL IV SCH ×4 (02:21→20:45)
[2017-01-05] MEDS: cefTRIAXone SODIUM 1 GM in SODIUM CHL 0.9% 50ML MIN-BAG+ 50 ML IVPB SCH ×2 (02:32→15:20)
[2017-01-05] MEDS ORDERED: LEVOTHYROXINE SODIUM 0.1 MG TAB ONE ×2 (05:51→19:49)
[2017-01-05] MEDS ORDERED: LEVOTHYROXINE SODIUM 0.075 MG TAB ONE ×2 (05:51→19:49)
[2017-01-05] MEDS: LEVOTHYROXINE SODIUM 0.1 MG, LEVOTHYROXINE SODIUM 0.075 MG PO SCH ×2 (05:52)
--- NOTE | 2017-01-05 07:13 | RAD ---
EXAM DESCRIPTION: Chest,1 View CLINICAL HISTORY: copd COMPARISON: None available FINDINGS: The cardiomediastinal silhouette is unremarkable. There is no airspace consolidation or pleural effusion. The lung volumes are at the upper limits of normal range. There is no pneumothorax or acute fracture. IMPRESSION: Upper normal lung volumes consistent with provided history of COPD. No acute intrathoracic abnormality. Electronically signed by: Barry Muhammad MD 01/05/2017 7:12 AM CDT
[2017-01-05] MEDS ORDERED: ENALAPRIL MALEATE 5 MG TAB ONE (07:41)
[2017-01-05] MEDS ORDERED: SODIUM CHLORIDE 0.9% 250ML 250 ML ONE (07:42)
[2017-01-05] MEDS ORDERED: AZITHROMYCIN IV 500 MG VIAL IVPB ONE (07:43)
[2017-01-05] MEDS: ARFORMOTEROL TARTRATE 15 MCG/2 ML NEB NEB SCH ×2 (08:20→19:45)
[2017-01-05] MEDS: IPRATROPIUM/ALBUTEROL 3 ML VIAL INH SCH ×4 (08:20→19:45)
[2017-01-05] MEDS: BUDESONIDE NEBS 0.25 MG/2 ML INH INH SCH ×2 (08:20→19:45)
[2017-01-05] MEDS: FINASTERIDE 5 MG TAB PO SCH (08:46)
[2017-01-05] MEDS: ENALAPRIL MALEATE 5 MG TAB PO SCH (08:46)
[2017-01-05] MEDS: GENTAMICIN 0.3% OPHTH SOL 1 DROP BOTH_EYES SCH ×4 (08:46→20:47)
[2017-01-05] MEDS: SODIUM CHLORIDE 0.9% (FLUSH) 10 ML SYG IV SCH ×2 (08:47→20:49)
[2017-01-05] MEDS: TAMSULOSIN 0.4 MG CAP PO SCH ×2 (08:47→20:45)
[2017-01-05] MEDS ORDERED: NON-FORMULARY MEDICATION 1 EA MIS (Levothyroxine Sodium [Synthroid] 175 MCG) PO SCH (09:00)
[2017-01-05] MEDS ORDERED: METOPROLOL TARTRATE 50 MG TAB PO SCH (09:30)
[2017-01-05] MEDS: PANTOPRAZOLE SODIUM TAB 40 MG PO SCH (11:52)
[2017-01-05] MEDS: AZITHROMYCIN IV 500 MG in SODIUM CHLORIDE 0.9% 250ML 250 ML IVPB SCH (17:38)
--- NOTE | 2017-01-05 19:18 | PN ---
DATE: 01/05/17 SUPERVISING PHYSICIAN: Anjum West M.D. SUBJECTIVE: The patient has had some improvement in his respiratory effort, but continues to be on BiPAP with slow titration. He still shows some desaturation when off the BiPAP on nasal cannula. He remains afebrile. T max 98.9. OBJECTIVE: VITAL SIGNS: T max 98.9, pulse 69, blood pressure 113/69, respirations 16, satting 84% on nasal cannula at rest at 3 liters but improving the 93% on BiPAP at 35% FiO2. I's and O's show a positive balance of 20 with 320 in, 300 out. Weight 109.3 kg. CHEST: Continued notable decreased breath sounds more so to the bases bilaterally with no obvious wheezing with the patient remaining on BiPAP. HEART: regular rate and rhythm. ABDOMEN: Obese but soft, non-tender. Positive bowel sounds. EXTREMITIES: No clubbing, cyanosis or edema. NEUROLOGIC: He is alert and oriented times three. LABORATORY: White count shows to be 7,100 with hemoglobin 12.8, hematocrit 40.1 , platelet count 141,000. Differential continues to show a left shift. Chemistries show normal electrolytes with carbon dioxide down to 30 compared to 37 on admission utilizing BiPAP with BUN 26, creatinine 1.20, glucose 199. Liver functions show to be within normal limits. MICROBIOLOGY: Blood cultures remain negative at 24 hours. RADIOLOGY: Repeat chest x-ray today single view shows upper normal lung volumes but consistent with COPD, but no acute intrathoracic abnormalities noted per radiology interpretation. ASSESSMENT: 1. Acute exacerbation of chronic obstructive pulmonary disease with the patient with a longstanding history of tobacco abuse having quit 3 years previously. The patient continues to require BiPAP for respiratory assistance with slow taper to nasal cannula. 2. Acute bilateral bacterial conjunctivitis showing improvement with Gentamicin ointment. 3. Periorbital edema secondary to conjunctivitis and seasonal allergies showing some improvement. 4. Seasonal allergies. 5. Hypertension. 6. Hyperlipidemia. 7. Coronary artery disease. 8. Hypothyroidism. The patient remains on supplementation. 9. Benign prostatic hypertrophy. PLAN: Will continue current plan of care to slowly titrate the patient off to nasal cannula as tolerated. He will remain on Rocephin and Azithromycin. Will continue with aggressive pulmonary hygiene. Will plan to repeat laboratory studies in the morning. Anticipate discharge either later tomorrow or Sunday after he is able to come off BiPAP. Until then, will continue to monitor and treat appropriately. #[id number] MTDD
[2017-01-05] MEDS ORDERED: SIMVASTATIN 20 MG TAB ONE (19:50)
[2017-01-05] MEDS ORDERED: ENOXAPARIN SODIUM 40 MG/0.4 ML SYG SUBCU ONE (19:50)
[2017-01-05] MEDS: SIMVASTATIN 20 MG TAB PO SCH (20:47)
[2017-01-05] MEDS: ENOXAPARIN SODIUM 40 MG/0.4 ML SYG SUBCU SCH (20:48)
--- NOTE | 2017-01-05 22:30 | PCM.CORE ---
Physician DVT/VTE - Nurse DVT Assessment & Total Each Risk Factor Represents 3 Points: Age over 75 years Each Risk Factor Represents 2 Points: Confined to bed >72 hours Each Risk Factor is 1 Point: Obesity (BMI >25), Serious Lung disease (pnemonia < 1month, COPD, emphysema,etc) DVT Assessment Score: 7 - 5 or more Very High Risk Treatments: Early Ambulation *, Sequential Compression Device Pharmacological: Enoxaparin 40mg SQ Daily
[2017-01-06] MEDS: methylPREDNISolone SODIUM SUC 125 MG/2 ML VIAL IV SCH ×4 (02:32→20:29)
[2017-01-06] MEDS: cefTRIAXone SODIUM 1 GM in SODIUM CHL 0.9% 50ML MIN-BAG+ 50 ML IVPB SCH ×2 (02:36→14:13)
[2017-01-06] MEDS: LEVOTHYROXINE SODIUM 0.1 MG, LEVOTHYROXINE SODIUM 0.075 MG PO SCH ×2 (06:11)
[2017-01-06] MEDS: PANTOPRAZOLE SODIUM TAB 40 MG PO SCH (06:11)
--- NOTE | 2017-01-06 06:37 | RAD ---
Clinical History : RLL pneumonia , MAIN Exam : PA and lateral views of the chest 01/06/2017 7:00 AM CDT Comparisons : Portable AP view of the chest January 05, 2017 Findings : Moderate emphysematous changes are noted throughout the lungs bilaterally. There is flattening of the diaphragms and increased retrosternal clear space.. The heart is normal in size. The mediastinal contours are normal in appearance. There are vascular calcifications along the aortic arch. The thoracic spine is age appropriate. The shoulders are unremarkable. Limited evaluation of the upper abdomen demonstrates no gross abnormalities. Impression: 1. No acute cardiopulmonary disease. 2. Stable emphysema. Electronically signed by: Gerald Mcclure MD 01/06/2017 6:36 AM CDT
[2017-01-06] MEDS: BUDESONIDE NEBS 0.25 MG/2 ML INH INH SCH ×2 (07:30→19:20)
[2017-01-06] MEDS: ARFORMOTEROL TARTRATE 15 MCG/2 ML NEB NEB SCH ×2 (07:30→19:20)
[2017-01-06] MEDS: IPRATROPIUM/ALBUTEROL 3 ML VIAL INH SCH ×4 (07:30→19:20)
[2017-01-06] MEDS: METOPROLOL TARTRATE 50 MG TAB PO SCH (07:59)
[2017-01-06] MEDS: TAMSULOSIN 0.4 MG CAP PO SCH ×2 (08:00→20:29)
[2017-01-06] MEDS: FINASTERIDE 5 MG TAB PO SCH (08:00)
[2017-01-06] MEDS: GENTAMICIN 0.3% OPHTH SOL 1 DROP BOTH_EYES SCH ×4 (08:00→20:29)
[2017-01-06] MEDS: ENALAPRIL MALEATE 5 MG TAB PO SCH (08:00)
[2017-01-06] MEDS: SODIUM CHLORIDE 0.9% (FLUSH) 10 ML SYG IV SCH ×2 (08:01→20:30)
[2017-01-06] MEDS ORDERED: SODIUM CHL 0.9% 50ML MIN-BAG+ 50 ML IVPB ONE ×2 (13:35→19:36)
[2017-01-06] MEDS ORDERED: cefTRIAXone SODIUM 1 GM VIAL ONE ×2 (13:35→19:37)
--- NOTE | 2017-01-06 16:05 | PN ---
DATE: 01/06/17 SUPERVISING PHYSICIAN: Anjum West M.D. SUBJECTIVE: The patient continues to show some improvement. He has been sitting on the edge of the bed this morning wearing oxygen watching TV. He has been able to be off his BIPAP, only requiring it at night. He remains afebrile. OBJECTIVE: VITAL SIGNS: T max 98.4, pulse 57, blood pressure 113/64, respirations 22, saturation 91% on nasal cannula at rest at rest. I's and O's show a positive balance of 422 with 870 in, 450 out. Weight 109.6 kg. HEENT: Bilateral conjunctiva areas are showing improvement with less erythema, less swelling. No drainage. CHEST: Lungs are much better aerated today, although still diminished toward the bases, more so on the right than left. No rhonchi or wheezing was noted. HEART: regular rate and rhythm. ABDOMEN: Obese but soft, non-tender. Positive bowel sounds. EXTREMITIES: No clubbing, cyanosis or edema. NEUROLOGIC: He is alert and oriented times three. LABORATORY: White count is up to 12.6 but he has been on cystorectocele, fairly large doses for several days. Hemoglobin stable 12.1, hematocrit 37.9, platelet count 167,000. Differential does show a left shift. Chemistries show normal electrolytes with BUN of3 45, creatinine down to 1.19. Glucose 8.7. Urinalyses still pending. MICROBIOLOGY: Blood cultures remain negative at 24 hours. RADIOLOGY: 2-view chest x-ray shows no acute cardiopulmonary disease per radiology interpretation. ASSESSMENT: 1. Acute exacerbation of chronic obstructive pulmonary disease with the patient having a longstanding history of tobacco abuse quitting 3 years previously. The patient continues to require BiPAP for respiratory assistance with slow taper to nasal cannula. 2. Acute bilateral bacterial conjunctivitis showing improvement with Gentamicin ointment. 3. Periorbital edema secondary to conjunctivitis and seasonal allergies showing some improvement. 4. Seasonal allergies. 5. Hypertension. 6. Hyperlipidemia. 7. Coronary artery disease. 8. Hypothyroidism with patient on supplementation. 9. Benign prostatic hypertrophy. PLAN: Will continue to titrate patient off BIPAP as able to and transition to nasal cannula. He will remain on DVT prophylaxis as per protocol. We will continue with aggressive hygiene and antibiotic therapy as noted above. Until discharge, we will continue to monitor him and treat appropriately [facility][id number] [facility]
[2017-01-06] MEDS ORDERED: SODIUM CHLORIDE 0.9% 250ML 250 ML ONE (17:11)
[2017-01-06] MEDS ORDERED: AZITHROMYCIN IV 500 MG VIAL IVPB ONE (17:12)
[2017-01-06] MEDS: AZITHROMYCIN IV 500 MG in SODIUM CHLORIDE 0.9% 250ML 250 ML IVPB SCH (17:16)
[2017-01-06] MEDS: BIFIDOBACTERIUM INFANTIS 4 MG CAP PO SCH (17:16)
[2017-01-06] MEDS: SIMVASTATIN 20 MG TAB PO SCH (20:29)
[2017-01-06] MEDS: ENOXAPARIN SODIUM 40 MG/0.4 ML SYG SUBCU SCH (20:29)
[2017-01-07] MEDS: cefTRIAXone SODIUM 1 GM in SODIUM CHL 0.9% 50ML MIN-BAG+ 50 ML IVPB SCH (03:22)
[2017-01-07] MEDS: PANTOPRAZOLE SODIUM TAB 40 MG PO SCH (05:30)
[2017-01-07] MEDS ORDERED: LEVOTHYROXINE SODIUM 0.1 MG TAB ONE (05:31)
[2017-01-07] MEDS ORDERED: LEVOTHYROXINE SODIUM 0.075 MG TAB ONE (05:31)
[2017-01-07] MEDS: LEVOTHYROXINE SODIUM 0.1 MG, LEVOTHYROXINE SODIUM 0.075 MG PO SCH ×2 (05:32)
[2017-01-07] MEDS ORDERED: SODIUM CHL 0.9% 50ML MIN-BAG+ 0 ML IVPB ONE (07:39)
[2017-01-07] MEDS ORDERED: cefTRIAXone SODIUM 1 GM VIAL ONE (07:40)
[2017-01-07] MEDS: METOPROLOL TARTRATE 50 MG TAB PO SCH (07:58)
[2017-01-07] MEDS: FINASTERIDE 5 MG TAB PO SCH (08:00)
[2017-01-07] MEDS: TAMSULOSIN 0.4 MG CAP PO SCH (08:00)
[2017-01-07] MEDS: SODIUM CHLORIDE 0.9% (FLUSH) 10 ML SYG IV SCH (08:02)
[2017-01-07] MEDS: GENTAMICIN 0.3% OPHTH SOL 1 DROP BOTH_EYES SCH (08:02)
[2017-01-07] MEDS: BIFIDOBACTERIUM INFANTIS 4 MG CAP PO SCH (08:03)
[2017-01-07] MEDS: BUDESONIDE NEBS 0.25 MG/2 ML INH INH SCH (08:13)
[2017-01-07] MEDS: ARFORMOTEROL TARTRATE 15 MCG/2 ML NEB NEB SCH (08:13)
[2017-01-07] MEDS: IPRATROPIUM/ALBUTEROL 3 ML VIAL INH SCH (08:13)
[2017-01-07] MEDS ORDERED: predniSONE 20 MG TAB PO SCH (09:00)
[2017-01-07] MEDS: ENALAPRIL MALEATE 5 MG TAB PO SCH (09:50)
[2017-01-07] MEDS ORDERED: INFLUENZA VIRUS VACC (ADULT) 0.5 ML SYG IM ONE ×2 (10:31→10:34)
[2017-01-07 11:03] VITALS: TEMP 97.2; O2SAT 93
[2017-01-07 11:04] VITALS: BP 126/57
--- NOTE | 2017-01-12 15:25 | DS ---
SUPERVISING PHYSICIAN: Anjum West MD DISCHARGE DIAGNOSIS: 1. Acute exacerbation of chronic obstructive pulmonary disease with the patient having a longstanding history of tobacco abuse. The patient required BiPAP and was to be tapered off the nasal cannula prior to discharge. 2. Acute bilateral bacterial conjunctivitis, showing improvement with gentamicin ointment. 3. Periorbital edema secondary to conjunctivitis and seasonal allergies, showing improvement. 4. Seasonal allergies. 5. Hypertension. 6. Hyperlipidemia. 7. Coronary artery disease. 8. Hypothyroidism with patient on supplementation. 9. Benign prostatic hypertrophy. HISTORY OF PRESENT ILLNESS: Mr. Graham is a 76 year-old male patient who was seen by his primary care physician, Dr. Rea, the morning of admission for the pink eye. While he was in the office, he complained of some shortness of breath. His oxygen saturations were down to 72% on room air at his clinic appointment and it came up to 84% on 2 liters nasal cannula. He was sent to the Emergency Room. His oxygen had to be titrated up to 3.5 liters via nasal cannula to keep saturations in the 90s. He also has periorbital edema that he gets frequently due to seasonal allergies, but he also has a lot of drainage from both eyes which he also says he gets frequently. He was given some steroids in the Emergency Room as well as breathing treatments. He was also started on antibiotics to include Rocephin and azithromycin. Blood cultures were drawn prior to antibiotic administration. His initial labs in the Emergency Room showed white count 10.3 with a left shift. Hemoglobin was 13.9 with hematocrit of 43.2. Sodium 140, potassium 4.2, chloride 96, carbon dioxide elevated at 37, BUN 21, creatinine 1.08, magnesium 1.9. Creatinine kinase was elevated at 177, but his other cardiac enzymes were negative. BNP was within normal limits at 54. Chest x-ray per radiology interpretation showed lungs normally aerated and clear with no obvious pleural effusion or pneumothorax. At that time, the patient was started on BiPAP due to respiratory distress and low O2 saturations and admitted to the Medical/Surgical Floor in stable condition. LABORATORY: White count on admission was 10.3. It did go up to a maximum of 12.6, but prior to discharge was back to 10.4. Hemoglobin was stable and at discharge was 11.2, hematocrit 36.2, platelet count 168,000. Differential did show a continued left shift through the entire admission. Chemistries showed normal electrolytes except for a low chloride. Initially it was 96 and at discharge it was up to 100. His carbon dioxide initially was elevated at 37, but after BiPAP treatment and initiation of bronchial hygiene and prior to discharge was down to 29. His BUN initially was elevated at 21 and went up to 45 with diuresis and creatinine seemed fairly stable and on discharge was 1.07. Calcium was within normal limits. At discharge, it was 8.7. Liver functions were within normal limits. Troponin within normal limits at 0.02. No urinalysis was completed. MICROBIOLOGY: Blood cultures times 2 were negative at 5 days. He had a nasal swab for influenza A and B by PCR and were negative. RADIOLOGY: Chest x-ray on admission per radiologic interpretation showed no obvious pleural effusion or pneumothorax seen. Lungs were normally aerated and clear. He had continued followup x-rays and morning prior to discharge, last x- ray showed per radiologic interpretation no acute cardiopulmonary disease and stable emphysema. EKG on admission showed a normal sinus rhythm. HOSPITAL COURSE: Mr. Graham was admitted as noted above for exacerbation of chronic obstructive pulmonary disease and bilateral conjunctivitis. On admission, he was started on antibiotics to include azithromycin and Rocephin as well as started on Solu-Medrol. He continued on antibiotics through admission and was tolerating antibiotics without any complications as well as showed improvement and was felt to be able to be titrated down to a p.o. dose of prednisone after which time the patient could be discharged. On the morning of discharge, the patient had shown good improvement clinically and was felt well enough to be discharged to have close clinical followup in the outpatient setting. PLAN: Mr. Graham was discharged on 01/07/17 to have close clinical followup with Dr. Rea as scheduled. He was to resume his home medications as instructed. He was to take his new prescriptions as directed. He was to wear his oxygen and CPAP as directed. He was to call the company that provided his CPAP mask and ask them to properly clean and decontaminate the system to prevent recontamination and further conjunctivitis. He was told to return to the hospital should he have any failure in his condition to improve or other symptoms that were concerning. DISCHARGE PRESCRIPTIONS: 1. Albuterol nebulizer 2.5 mg inhaled q.4h. as needed, #25. 2. Zithromax 500 mg daily, #2. 3. Align 4 mg daily. 4. Cefdinir 300 mg twice daily, #20. 5. Gentamicin 0.3% ophthalmic solution 2 drops up to 4 times a day in the affected eye. 6. Prednisone tapering dose 10 mg tablets, 40 mg times 3 days, 30 mg times 3 days, 20 mg times 3 days, then 10 mg for a total of completion of treatment. DIET AT DISCHARGE: Regular diet as tolerated. ACTIVITY: Increase as tolerated, to wear oxygen at all times. CONDITION AT DISCHARGE: Stable and improved. #[id number] [facility]
== END 2017-01-07 11:10 | disposition home or self-care (01) | DRG 192 ==
LOC: ER 16:05 → MS 18:55
PROVIDERS: ADMIT Family Medicine; ATTEND Nurse Practitioner Acute Care
DX: J44.1 Chronic obstructive pulmonary disease with (acute) exacerbation (principal); H10.33 Unspecified acute conjunctivitis, bilateral; J30.2 Other seasonal allergic rhinitis; I10 Essential (primary) hypertension; E78.5 Hyperlipidemia, unspecified; E03.9 Hypothyroidism, unspecified; N40.0 Benign prostatic hyperplasia without lower urinary tract symptoms; I25.10 Atherosclerotic heart disease of native coronary artery without angina pectoris; Z87.891 Personal history of nicotine dependence; Z95.5 Presence of coronary angioplasty implant and graft; Z88.5 Allergy status to narcotic agent; Z88.2 Allergy status to sulfonamides; Z79.899 Other long term (current) drug therapy

== ENCOUNTER 2017-01-18 14:45 | Day surgery (SDC) | payer MEDICARE, OTHER ==
[~2017-01-18 14:45] MED LIST: MIDAZOLAM INJ 2 MG/2 ML VIAL ONE; PROPARACAINE 0.5% OPHTH SOL 15 ML BTTL ONE; TROP 1%/CYCLOPEN 1%/PHENYL 2% DROPS ONE
[2017-01-18] MEDS ORDERED: TROP 1%/CYCLOPEN 1%/PHENYL 2% DROPS OPHTH ONE (15:02)
[2017-01-18] MEDS ORDERED: TOBRAMYCIN SULF 0.3 % OPHT SOL 1 DROP RIGHT_EYE ONE ×2 (15:02→16:35)
[2017-01-18] MEDS ORDERED: PROPARACAINE 0.5% OPHTH SOL 15 ML BTTL RIGHT_EYE ONE ×2 (15:02→16:25)
[2017-01-18] MEDS ORDERED: LIDOCAINE 1% PF 2 ML AMP INJ ONE (16:35)
[2017-01-18] MEDS ORDERED: DEXAMETHASONE 0.1% OPHTH SOL 1 DROP RIGHT_EYE ONE (16:35)
[2017-01-18] MEDS ORDERED: BRIMONIDINE 0.2% OPHTH DROPS RIGHT_EYE ONE (16:37)
[2017-01-18 17:03] VITALS: BP 143/82; TEMP 97.4; O2SAT 98
== END 2017-01-18 17:45 | disposition home or self-care (01) ==
LOC: AMB 14:45
PROVIDERS: ATTEND Ophthalmology
DX: H25.11 Age-related nuclear cataract, right eye (principal); I10 Essential (primary) hypertension; I25.10 Atherosclerotic heart disease of native coronary artery without angina pectoris; E66.9 Obesity, unspecified; J44.9 Chronic obstructive pulmonary disease, unspecified; I25.2 Old myocardial infarction; Z87.891 Personal history of nicotine dependence; Z88.2 Allergy status to sulfonamides; Z88.8 Allergy status to other drugs, medicaments and biological substances; Z79.899 Other long term (current) drug therapy
CPT/HCPCS: 66984; J2250

== ENCOUNTER → 2017-02-13 | Outpatient (CLI) | payer MEDICARE, OTHER | END | disposition home or self-care (01) | LOC: GMAB 10:31 | PROVIDERS: ATTEND Family Medicine | DX: E03.9 Hypothyroidism, unspecified (principal); R97.20 Elevated prostate specific antigen [PSA]; E11.9 Type 2 diabetes mellitus without complications; I10 Essential (primary) hypertension ==

== ENCOUNTER 2017-02-19 05:51 | Day surgery (SDC) | payer MEDICARE, OTHER ==
[2017-02-19] MEDS ORDERED: TROP 1%/CYCLOPEN 1%/PHENYL 2% DROPS ONE (06:09)
[2017-02-19] MEDS ORDERED: MIDAZOLAM INJ 2 MG/2 ML VIAL ONE (07:00)
[2017-02-19] MEDS: TOBRAMYCIN SULF 0.3 % OPHT SOL 1 DROP LEFT_EYE ONE ×2 (07:01→07:48)
[2017-02-19] MEDS: PROPARACAINE 0.5% OPHTH SOL 15 ML BTTL ONE ×2 (07:01→07:20)
[2017-02-19] MEDS ORDERED: SODIUM CHLORIDE 0.9% 10 ML VIAL ONE (07:21)
[2017-02-19] MEDS ORDERED: LIDOCAINE 1% MPF 5 ML VIAL INJ ONE (07:31)
[2017-02-19] MEDS ORDERED: DEXAMETHASONE 0.1% OPHTH SOL 1 DROP LEFT_EYE ONE (07:49)
[2017-02-19] MEDS ORDERED: BRIMONIDINE 0.2% OPHTH DROPS LEFT_EYE ONE (07:49)
[2017-02-19 08:25] VITALS: BP 134/74; TEMP 97.8; O2SAT 92
== END 2017-02-19 08:35 | disposition home or self-care (01) ==
LOC: AMB 05:51
PROVIDERS: ATTEND Ophthalmology
DX: H25.12 Age-related nuclear cataract, left eye (principal); I11.0 Hypertensive heart disease with heart failure; I50.9 Heart failure, unspecified; I25.10 Atherosclerotic heart disease of native coronary artery without angina pectoris; J44.9 Chronic obstructive pulmonary disease, unspecified; E66.9 Obesity, unspecified; Z87.891 Personal history of nicotine dependence; Z88.2 Allergy status to sulfonamides; Z88.8 Allergy status to other drugs, medicaments and biological substances; Z79.899 Other long term (current) drug therapy
CPT/HCPCS: 66984; J2250

== ENCOUNTER 2017-02-27 08:47 | Emergency (ER) | payer MEDICARE, OTHER ==
--- NOTE | 2017-02-27 09:22 | RAD ---
EXAM DESCRIPTION: Chest,1 View CLINICAL HISTORY: difficulty breathing COMPARISON: January 06, 2017 IMPRESSION: Single AP portable upright view of the chest shows enlargement of the cardiac silhouette without pulmonary vascular congestion. There is elongation and tortuosity of the thoracic aorta. Lungs are mildly hyperinflated. Mild linear interstitial thickening in the right mid chest is again seen likely representing chronic atelectasis or scarring. No new infiltrates or consolidations are seen. No obvious pleural effusion or pneumothorax is seen. Electronically signed by: Miguel Angel John MD 02/27/2017 9:20 AM [facility]
--- NOTE | 2017-02-27 10:26 | ED.PDOC ---
History of Present Illness - General Chief Complaint: Respiratory Problem Stated Complaint: Difficulty breathing, SOB Time Seen by Provider: 02/27/17 10:07 Source: EMS Exam Limitations: clinical condition - History of Present Illness Initial Comments: H/O COPD. CHRONIC 2 L NC. CPAP AT NIGHT. LIFETIME SMOKING, STOPPED 5 YR AGO. EMS CALLED TO HOME, RR 40, 60% ON HOME 02. NOW 98% ON BIPAP. EMS HEARD CRACKLES LUNGS THUS GAVE 40 LASIX. Timing/Duration: just prior to arrival Severity: severe Possible Cause: chronic episodes Improving Factors: nothing Worsening Factors: nothing Respiratory Risk Factors: other - copd Allergies/Adverse Reactions: Allergies Hydromorphone [From Dilaudid] Allergy (Verified 02/27/17 10:28) Sulfa Antibiotics Allergy (Verified 02/27/17 10:28) Rash itching Home Medications: Ambulatory Orders Enalapril Maleate 10 mg PO DAILY 01/17/15 Levothyroxine Sodium [Synthroid] 175 mcg PO DAILY 01/17/15 Simvastatin 40 mg PO BEDTIME 01/17/15 Tamsulosin HCl [Flomax] 0.4 mg PO BID 01/17/15 Arformoterol Tartrate [Brovana] 15 mcg INH BID 04/13/15 Metoprolol Tartrate 50 mg PO DAILY 05/02/16 Budesonide (Inhalation) [Budesonide] 0.25 mg IN BID 01/04/17 Finasteride [Proscar] 5 mg PO DAILY 01/04/17 Furosemide 40 mg PO BID PRN 01/04/17 Potassium Chloride [Potassium Chloride ER] 10 meq PO BID PRN 01/04/17 Aspirin [(None)] 325 mg PO QD 02/27/17 Levothyroxine Sodium PO DAILY 02/27/17 Review of Systems - Review of Systems Unable to Obtain Due To: condition, other - PT NOT RESPONDING TO QUESTIONS. OBTUNDED. Past Medical History (General) - Patient Medical History Hx Seizures: No Hx Stroke: No Hx Dementia: Yes - forgetful Hx Asthma: Yes Hx of COPD: Yes Hx Cardiac Disorders: Yes Hx Congestive Heart Failure: Yes Hx Pacemaker: No Hx Hypertension: Yes Hx Thyroid Disease: Yes Hx Diabetes: No Hx Gastroesophageal Reflux: No Hx Renal Disease: Yes Hx Cancer: No Hx of HIV: No Hx Hepatitis C: No Hx MRSA: No MRSA Source:: Wound Surgical History: angioplasty, appendectomy, other - Vaccination History Hx Tetanus, Diphtheria Vaccination: Yes Hx Influenza Vaccination: Yes Hx Pneumococcal Vaccination: Yes Immunizations Up to Date: Yes - Social History Hx Tobacco Use: No Hx Chewing Tobacco Use: No Hx Alcohol Use: No Hx Substance Use: No Hx Substance Use Treatment: No Hx Depression: No Hx Physical Abuse: No Hx Emotional Abuse: No Hx Suspected Abuse: No - Activities of Daily Living Hospice Agency (if applicable):: None - Female History Patient : No - Triage Comment ED Triage Comment: Patient responds only to verbal, no verbal response. QUINAULT. arrived after admission and gave more information Family Medical History - Family History Father Family History: Unknown Living Status: Physical Exam - Physical Exam General Appearance: Lethargic, Obvious distress, Ill Appearing, Obese Eye Exam: bilateral normal ENT Exam: normal ENT inspection, TMs normal Neck: supple, other - NO JVD Respiratory: lungs clear, normal breath sounds - WITH BIPAP ASSISTANCE. Cardiovascular/Chest: regular rate, rhythm, no edema, no gallop, no JVD, no murmur Gastrointestinal/Abdominal: normal bowel sounds, soft Extremity: normal range of motion, normal inspection Neurologic: other - PT NOT RESPONDING TO QUESTIONS. HE OPENED EYES TO MY REQUEST BUT DID NOT SPEAK OR MOVE TO COMMAND. Skin Exam: diaphoresis, other - PLETHORA Lymphatic: no adenopathy Progress - Results/Orders Results/Orders: CIES: TROP ELEV AT 0.19. CKMB SLIGHTLY ELEV AT 4.7. EKG NSR X 2. NO ST CHANGES. CXR NO INFILTRATE, NO PLEURAL EFFUSIONS, NO PULM EDEMA. CBC NEG EXCEPT HGB 13. CMP NEG. INR WNL D-DIMER BARELY ELEVATED AT 315 (NOT HIGH ENOUGH TO BE CONCERNING FOR DVT OR PE) . BNP: PENDING ABG: PENDING. WITH LABS PENDING AND EKG NEG X 2, I AM GOING TO REPEAT TROPONIN. BNP NL AT 129. ABG:RESP ACIDOSIS. TROP: 0.19, REPEAT 0.24. NL EKG'S BUT WITH ELEV TROP, THUS I AM TRANSFERRING TO [facility] ER. THANK YOU, DR PERRIN, FOR ACCEPTING FURTHER CARE. DX: COPD EXACERBATION (GAVE BREATHING TX), RESPIRATORY DISTRESS (STABLE ON BIPAP ), WITH POSSIBLE ACUTE CORONARY SYNDROME (ELEV TROP). Departure - Departure Clinical Impression: COPD exacerbation, Hypoxia, Respiratory distress, acute, Elevated troponin Disposition: Transfer to Hospital Condition: Serious Departure Forms: Patient Portal Self Enrollment Referrals: Aidan Rea MD [Primary Care Provider] - 1-2 Weeks Home Medications: Ambulatory Orders Enalapril Maleate 10 mg PO DAILY 01/17/15 Levothyroxine Sodium [Synthroid] 175 mcg PO DAILY 01/17/15 Simvastatin 40 mg PO BEDTIME 01/17/15 Tamsulosin HCl [Flomax] 0.4 mg PO BID 01/17/15 Arformoterol Tartrate [Brovana] 15 mcg INH BID 04/13/15 Metoprolol Tartrate 50 mg PO DAILY 05/02/16 Budesonide (Inhalation) [Budesonide] 0.25 mg IN BID 01/04/17 Finasteride [Proscar] 5 mg PO DAILY 01/04/17 Furosemide 40 mg PO BID PRN 01/04/17 Potassium Chloride [Potassium Chloride ER] 10 meq PO BID PRN 01/04/17 Aspirin [(None)] 325 mg PO QD 02/27/17 Levothyroxine Sodium PO DAILY 02/27/17 Transfer to Outside Facility - Transfer Information Accepting Provider:: DR PERRIN Accepting Facility: [facility] Reason for Transfer: specialized care not available
[2017-02-27] MEDS ORDERED: IPRATROPIUM/ALBUTEROL 3 ML VIAL NEB ONE (10:54)
[2017-02-27 12:12] VITALS: BP 121/71; TEMP 98.6
[2017-02-27 12:50] VITALS: O2SAT 96
== END 2017-02-27 12:45 | disposition short-term general hospital (02) ==
LOC: ER 08:47
DX: J44.1 Chronic obstructive pulmonary disease with (acute) exacerbation (principal); R79.89 Other specified abnormal findings of blood chemistry; I11.0 Hypertensive heart disease with heart failure; I50.9 Heart failure, unspecified; E07.9 Disorder of thyroid, unspecified; K21.9 Gastro-esophageal reflux disease without esophagitis; Z98.61 Coronary angioplasty status; Z79.899 Other long term (current) drug therapy; Z79.82 Long term (current) use of aspirin; Z88.2 Allergy status to sulfonamides; Z88.6 Allergy status to analgesic agent; Z99.81 Dependence on supplemental oxygen
CPT/HCPCS: 36415; 36600; 71010; 80048; 80076; 81001; 82550; 82553; 82803; 82805; 83880; 84484; 85025; 85379; 85610; 85730; 93005; 94640; 94660; 94760; J7620

== ENCOUNTER 2017-03-20 07:41 | Emergency (ER) | payer MEDICARE, OTHER ==
[2017-03-20] MEDS ORDERED: IPRATROPIUM/ALBUTEROL 3 ML VIAL NEB ONE (07:51)
[2017-03-20] MEDS ORDERED: methylPREDNISolone SODIUM SUC 125 MG/2 ML VIAL IV ONE (08:31)
--- NOTE | 2017-03-20 08:57 | RAD ---
EXAM DESCRIPTION: Chest,1 View CLINICAL HISTORY: ams, hypoxia, recent pna COMPARISON: February 27, 2017 IMPRESSION: Single AP portable upright view of the chest shows enlargement of cardiomediastinal silhouette. Ectasia and tortuosity the thoracic aorta is seen. Lungs are hyperinflated without acute infiltrate or consolidation. Interval placement of a right-sided PICC line is seen with tip in good positioning in the distal superior vena cava.. No obvious pleural effusion or pneumothorax is seen. Electronically signed by: Miguel Angel John MD 03/20/2017 8:56 AM [facility]
[2017-03-20] MEDS ORDERED: diphenhydrAMINE HCL 50 MG/ML VIAL IV ONE (09:08)
[2017-03-20] MEDS ORDERED: SODIUM CHLORIDE 0.9% 1000ML 500 ML IVS ONE (10:32)
[2017-03-20] MEDS ORDERED: SUCCINYLCHOLINE CHLORIDE 200 MG/10 ML VIAL ONE (13:32)
[2017-03-20] MEDS ORDERED: MIDAZOLAM INJ 5 MG/5 ML VIAL ONE (13:33)
[2017-03-20] MEDS ORDERED: ETOMIDATE INJECTION 2 MG/ML 20ML VIAL IV ONE (14:02)
[2017-03-20] MEDS ORDERED: MIDAZOLAM INJ 5 MG/5 ML VIAL IV ONE ×4 (14:02→15:31)
[2017-03-20] MEDS ORDERED: SUCCINYLCHOLINE CHLORIDE 200 MG/10 ML VIAL IV ONE (14:02)
--- NOTE | 2017-03-20 14:15 | RAD ---
EXAM DESCRIPTION: Chest,1 View CLINICAL HISTORY: post intubation COMPARISON: March 20, 2017 at 0813 hours. IMPRESSION: Post intubation frontal view of the thorax was acquired. Endotracheal tube is noted with tip projecting approximately 2.5 cm above the manolo. Consider retraction by approximately 2-3 cm. Right upper extremity PICC line catheter is seen with tip projecting in satisfactory position. No other significant change since most recent comparison. Electronically signed by: Jamie Valderrama MD 03/20/2017 2:13 PM [facility]
--- NOTE | 2017-03-20 14:43 | ED.PDOC ---
History of Present Illness - General Chief Complaint: Respiratory Problem Stated Complaint: shortness of breath Time Seen by Provider: 03/20/17 07:49 Source: patient Exam Limitations: no limitations - History of Present Illness Initial Comments: the patient is a 76-year-old male who was brought into the emergency room by his . The patient apparently stumbled into the emergency room waiting room. He is taking shallow breaths. He is obviously altered. He will not speak. He has some periorbital swelling that the reports has been there for more than a month. He has a conjunctivitis that has been around that time as well. He has copious rhinorrhea. No tongue or lip enlargement. He moves all extremities. He'll move all extremities to command. Occasionally he mumbles things that don't make sense. The was reports that he was in a normal mental state up until yesterday evening. He has progressively gotten more confusedthrough the morning. The patient was admitted to [facility] approximately 3 weeks ago for a similar episode. The patient was significantly hypercapnic and acidotic. He was able to be turned around at that time with significant BiPAP. The patient did however spent 12 days in the hospital there for what the reports was suspected to be an MRSA sepsis. The source for that sepsis was uncertain. He is still receiving IV vancomycin twice daily through a PICC line in his right upper extremity. He received his dose last night. He apparently had multiple studies at [facility], which we of course do not have reports for. He has had no fevers or headache or neck pain. The patient is able to protect his airway. He is however significantly obtunded. He has a history of COPD and normally stays on 2 L nasal cannula during the day. He has a history of sleep apnea and does sleep with CPAP. The is uncertain how long it's been since he's had a titration study with that. He has a history of congestive heart failure, coronary artery disease with 2 stents and hypercholesterolemia. He has a history of hypothyroidism, hypertension and BPH. He does have a history of seasonal allergies. of note, the conjunctival edema and the periorbital edema had been treated with antibiotics and topical steroids in the past without any real relief. Timing/Duration: unsure Severity: severe Improving Factors: nothing Worsening Factors: nothing Associated Symptoms: loss of appetite, malaise, shortness of breath Allergies/Adverse Reactions: Allergies Hydromorphone [From Dilaudid] Allergy (Verified 02/27/17 10:28) Sulfa Antibiotics Allergy (Verified 02/27/17 10:28) Rash itching Home Medications: Ambulatory Orders Enalapril Maleate 10 mg PO DAILY 01/17/15 Levothyroxine Sodium [Synthroid] 175 mcg PO DAILY 01/17/15 Simvastatin 40 mg PO BEDTIME 01/17/15 Tamsulosin HCl [Flomax] 0.4 mg PO BID 01/17/15 Arformoterol Tartrate [Brovana] 15 mcg INH BID 04/13/15 Metoprolol Tartrate 50 mg PO DAILY 05/02/16 Finasteride [Proscar] 5 mg PO DAILY 01/04/17 Review of Systems - Review of Systems Constitutional: States: malaise, weakness EENTM: States: other - significant periorbital edema as well as watery eyes and a runny nose. His voice is also apparently been hoarse for the better part of a month. Respiratory: States: cough, short of breath - more long-term than acute Cardiology: States: edema - chronic bilateral lower extremity. Gastrointestinal/Abdominal: States: no symptoms reported Genitourinary: States: no symptoms reported Musculoskeletal: States: no symptoms reported Skin: States: see HPI Neurological: States: other - confusion Endocrine: States: no symptoms reported All other Systems: No Change from Baseline Past Medical History (General) - Patient Medical History Hx Seizures: No Hx Stroke: No Hx Dementia: Yes - forgetful Hx Asthma: Yes Hx of COPD: Yes Hx Cardiac Disorders: Yes Hx Congestive Heart Failure: Yes Hx Pacemaker: No Hx Hypertension: Yes Hx Thyroid Disease: Yes Hx Diabetes: No Hx Gastroesophageal Reflux: No Hx Renal Disease: Yes Hx Cancer: No Hx of HIV: No Hx Hepatitis C: No Hx MRSA: Yes MRSA Source:: Blood - Vaccination History Hx Tetanus, Diphtheria Vaccination: Yes Hx Influenza Vaccination: Yes Hx Pneumococcal Vaccination: Yes - Social History Hx Tobacco Use: Yes Hx Chewing Tobacco Use: No Hx Alcohol Use: No Hx Substance Use: No Hx Substance Use Treatment: No Hx Depression: No Hx Physical Abuse: No Hx Emotional Abuse: No Hx Suspected Abuse: No - Female History Patient : No Family Medical History - Family History Father Family History: Unknown Living Status: Physical Exam - Physical Exam General Appearance: Lethargic - obtunded but can protect airway and does respond to pain Eye Exam: bilateral other - bilateral edematous conjunctivitis and periorbital edema Ears, Nose, Throat: normal pharynx - mouth is fairly dry. No significant enlargement of the tongue. Small posterior oropharynx., nasal congestion - with copious clear rhinorrhea, other - he will move his extremities to command. He does have some chronic hearing loss apparently. Neck: full range of motion, supple, normal inspection Respiratory: chest non-tender, decreased breath sounds, accessory muscle use - mild to moderate Cardiovascular/Chest: normal peripheral pulses, regular rate, rhythm Peripheral Pulses: radial,right: 2+, radial,left: 2+, dorsalis pedis,right: 2+, dorsalis pedis,left: 2+ Gastrointestinal/Abdominal: non tender - morbidly obese, soft Rectal Exam: deferred Back Exam: no CVA tenderness, no vertebral tenderness - as best can be ascertained Extremity: non-tender, no calf tenderness, normal capillary refill, pedal edema - +1 to bilateral lower extremities Neurologic: other - btunded and confused. He does actually move all extremities however. Difficult to assess for strength and sensation adequately. Skin Exam: pallor Comments: Vital Signs - 24 hr 03/20/17 03/20/17 03/20/17 07:55 08:15 08:59 Temperature 97.8 F Pulse Rate [ 77 Left Brachial] Respiratory 16 20 16 Rate Respiratory Rate [Volume Control Data] Blood Pressure 101/56 [Left Arm] O2 Sat by Pulse 66 L Oximetry 03/20/17 03/20/17 03/20/17 09:16 09:33 10:06 Temperature Pulse Rate [ 66 68 Left Brachial] Respiratory 16 16 Rate Respiratory Rate [Volume Control Data] Blood Pressure 128/74 132/73 [Left Arm] O2 Sat by Pulse 97 97 95 Oximetry 03/20/17 03/20/17 03/20/17 11:18 11:38 12:23 Temperature Pulse Rate [ 64 67 Left Brachial] Respiratory 20 16 16 Rate Respiratory Rate [Volume Control Data] Blood Pressure 139/32 124/75 [Left Arm] O2 Sat by Pulse 97 96 Oximetry 03/20/17 03/20/17 03/20/17 13:44 13:45 14:00 Temperature Pulse Rate [ 73 67 Left Brachial] Respiratory 20 22 22 Rate Respiratory 22 Rate [Volume Control Data] Blood Pressure 135/76 107/78 [Left Arm] O2 Sat by Pulse 95 99 Oximetry 03/20/17 03/20/17 03/20/17 14:11 14:30 14:36 Temperature Pulse Rate [ 69 67 Left Brachial] Respiratory 22 16 Rate Respiratory 16 Rate [Volume Control Data] Blood Pressure 105/77 118/83 [Left Arm] O2 Sat by Pulse 97 99 Oximetry Progress - Progress Progress: 03/20/17 14:54 the patient is a 76-year-old male presenting to the emergency room with his secondary to altered mental status. The patient is found to be in acute on chronic respiratory failure. We did attempt for 5 or 6 hours to try and BiPAP the patient at higher settings to help blow off some of the carbon dioxide. We did fail. Mental status did not improve. Ultimately permission of the we did intubate the patient. Risk and benefits were explained prior. The patient received 20 mg of etomidate and 100 mg succinylcholine for the intubation. Oxygen saturations never dropped below 98% during the intubation process. #8 tube was placed at initially 26 cm at the lip but did have to be pulled back by 2 cm after the postintubation chest x- ray. the patient is receiving Versed for mild sedation while intubated. no evidence of any significant pneumonia, CHF or COPD exacerbation has been found. Breath sounds are very quiet but there is no difficulty with ventilating the patient while intubated. No significant wheezes, rales or rhonchi. I believe his issues with hypoventilation are related to his upper airway. I do believe that he has some significant vocal cord edema as seen during the intubation process. This may go along with the periorbital edema and conjunctival edema. The patient did receive a dose of Benadryl and Solu-Medrol here. the patient's last vancomycin dose for the presumed MRSA sepsis was last night. His trough level this morning was 14. He has not received another dose yet. The patient will be transferred for higher level of care and further intervention as indicated. I'm uncertain at this time. The respiratory failure was contributed by some form of allergic long-term reaction versus simply a compilation of his chronic medical problems of COPD, obstructive sleep apnea and obesity. - Results/Orders Results/Orders: Laboratory Tests 03/20/17 03/20/17 03/20/17 07:49 07:52 08:02 WBC RBC Hgb Hct MCV MCH MCHC RDW Plt Count MPV Absolute Neuts (auto) Absolute Lymphs (auto) Absolute Monos (auto) Absolute Eos (auto) Absolute Basos (auto) Neutrophils % Lymphocytes % Monocytes % Eosinophils % Basophils % PT 10.4 INR 0.920 PTT (SP) 27.4 D-Dimer, Quantitative 460 H* pCO2 103 H* pO2 127 H* HCO3 34.1 ABG pH 7.150 L* ABG O2 Saturation 98.9 ABG Base Excess 1.7 ABG Deoxyhemoglobin 1.1 Oxyhemoglobin % 96.7 Carboxyhemoglobin % 1.5 Methemoglobin % Sat 0.8 Calc Total Hemoglobin 13.2 L Sodium Potassium Chloride Carbon Dioxide Anion Gap BUN Creatinine BUN/Creatinine Ratio Random Glucose Serum Osmolality Lactic Acid Calcium Magnesium Total Bilirubin AST ALT Alkaline Phosphatase Creatine Kinase CK-MB (CK-2) CK-MB (CK-2) % Troponin I B-Natriuretic Peptide Serum Total Protein Albumin Globulin Albumin/Globulin Ratio Vancomycin Trough 14.9 H 03/20/17 03/20/17 03/20/17 08:10 08:10 08:10 WBC 7.9 RBC 4.54 L Hgb 12.8 L Hct 40.7 L MCV 89.7 MCH 28.1 MCHC 31.4 L RDW 15.7 H Plt Count 126 L MPV 8.4 Absolute Neuts (auto) 4.80 Absolute Lymphs (auto) 2.00 Absolute Monos (auto) 0.70 Absolute Eos (auto) 0.30 Absolute Basos (auto) 0.10 Neutrophils % 60.8 Lymphocytes % 25.5 Monocytes % 8.6 Eosinophils % 3.9 Basophils % 1.2 PT INR PTT (SP) D-Dimer, Quantitative pCO2 pO2 HCO3 ABG pH ABG O2 Saturation ABG Base Excess ABG Deoxyhemoglobin Oxyhemoglobin % Carboxyhemoglobin % Methemoglobin % Sat Calc Total Hemoglobin Sodium 145 Potassium 4.1 Chloride 100 L Carbon Dioxide 37 H Anion Gap 12.1 BUN 16 Creatinine 1.25 BUN/Creatinine Ratio 12.8 Random Glucose 202 H Serum Osmolality 295.6 H Lactic Acid 1.7 Calcium 8.6 Magnesium 1.8 Total Bilirubin 0.2 AST 22 ALT 26 Alkaline Phosphatase 38 L Creatine Kinase 119 CK-MB (CK-2) 5.6 H* CK-MB (CK-2) % Not Reportable Troponin I 0.03 B-Natriuretic Peptide 225.0 H* Serum Total Protein 6.2 L Albumin 3.6 Globulin 2.6 Albumin/Globulin Ratio 1.4 Vancomycin Trough 03/20/17 03/20/17 03/20/17 10:18 13:15 14:15 WBC RBC Hgb Hct MCV MCH MCHC RDW Plt Count MPV Absolute Neuts (auto) Absolute Lymphs (auto) Absolute Monos (auto) Absolute Eos (auto) Absolute Basos (auto) Neutrophils % Lymphocytes % Monocytes % Eosinophils % Basophils % PT INR PTT (SP) D-Dimer, Quantitative pCO2 92 H* 93 H* 53 H pO2 65 L 63 L 67 L HCO3 35.1 34.1 29.5 ABG pH 7.210 L* 7.190 L* 7.370 ABG O2 Saturation 93.1 L 92.2 L 96.9 ABG Base Excess 4.4 3.4 3.7 ABG Deoxyhemoglobin 6.8 H 7.6 H 3.0 Oxyhemoglobin % 90.7 L 89.9 L 94.5 Carboxyhemoglobin % 1.4 1.6 H 1.5 Methemoglobin % Sat 1.1 0.9 1.0 Calc Total Hemoglobin 12.4 L 11.9 L 11.9 L Sodium Potassium Chloride Carbon Dioxide Anion Gap BUN Creatinine BUN/Creatinine Ratio Random Glucose Serum Osmolality Lactic Acid Calcium Magnesium Total Bilirubin AST ALT Alkaline Phosphatase Creatine Kinase CK-MB (CK-2) CK-MB (CK-2) % Troponin I B-Natriuretic Peptide Serum Total Protein Albumin Globulin Albumin/Globulin Ratio Vancomycin Trough chest x-ray shows no acute changes. No acute volume overload, pneumonia or pneumothorax. EKG shows chronic changes. He is in normal sinus rhythm. He has poorly progression in anterior leads. head CT is negative for any acute pathology. critical care time: 55 minutes spent in treatment of the patient, counseling of the family and arrangements for higher level of care not including otherwise billable procedures. Departure - Departure Clinical Impression: Hypoventilation associated with obesity syndrome Respiratory failure Qualifiers: Chronicity: acute on chronic Respiratory failure complication: hypoxia and hypercapnia Qualified Code(s): J96.21 - Acute and chronic respiratory failure with hypoxia Disposition: Transfer to Hospital Home Medications: Ambulatory Orders Enalapril Maleate 10 mg PO DAILY 01/17/15 Levothyroxine Sodium [Synthroid] 175 mcg PO DAILY 01/17/15 Simvastatin 40 mg PO BEDTIME 01/17/15 Tamsulosin HCl [Flomax] 0.4 mg PO BID 01/17/15 Arformoterol Tartrate [Brovana] 15 mcg INH BID 04/13/15 Metoprolol Tartrate 50 mg PO DAILY 05/02/16 Finasteride [Proscar] 5 mg PO DAILY 01/04/17 Transfer to Outside Facility - Transfer Information Accepting Provider:: dr mccormack Accepting Facility: [facility] Reason for Transfer: ICU
[2017-03-20 14:46] VITALS: O2SAT 99
[2017-03-20] MEDS ORDERED: DEX 5% W/NACL 0.45% 1000ML 1,000 ML IVS ONE (14:48)
--- NOTE | 2017-03-20 14:55 | CT ---
EXAM DESCRIPTION: Head. CT head without contrast CLINICAL HISTORY: Altered mental status. COMPARISON: None available TECHNIQUE: Multiple axial images of the head without contrast. Multiplanar reformatted images. This exam was performed according to our departmental dose-optimization program, which includes automated exposure control, adjustment of the mA and/or kV according to patient size and/or use of iterative reconstruction technique. FINDINGS: There is no CT evidence of intracranial hemorrhage, mass effect, or large territory infarction. Moderate generalized volume loss is present. Moderate patchy supratentorial white matter hypodensities. There are no abnormal extra-axial fluid collections. Calcific plaque in the visualized arteries. There is no acute calvarial defect. Moderate mucosal thickening in the maxillary sinuses and ethmoid air cells. The mastoid air cells are clear. IMPRESSION: 1. No CT evidence of an acute intracranial abnormality. If there is concern for an acute or subacute infarct, consider follow-up MRI. 2. Senescent changes. Electronically signed by: Abdullahi Blackman MD 03/20/2017 2:53 PM [facility]
[2017-03-20 15:01] VITALS: BP 121/74; TEMP 97.5
== END 2017-03-20 15:35 | disposition short-term general hospital (02) ==
LOC: ER 07:41
DX: J96.21 Acute and chronic respiratory failure with hypoxia (principal); E66.2 Morbid (severe) obesity with alveolar hypoventilation; J44.9 Chronic obstructive pulmonary disease, unspecified; I11.0 Hypertensive heart disease with heart failure; I50.9 Heart failure, unspecified; E07.9 Disorder of thyroid, unspecified; F03.90 Unspecified dementia, unspecified severity, without behavioral disturbance, psychotic disturbance, mood disturbance, and anxiety; Z87.891 Personal history of nicotine dependence; Z79.899 Other long term (current) drug therapy
CPT/HCPCS: 31500; 36415; 36600; 70450; 71010; 80053; 80202; 82550; 82553; 82803; 82805; 83605; 83735; 83880; 84484; 85025; 85379; 85610; 85730; 87040; 87502; 93005; 94002; 94640; 94660; 94770; J0330; J1200; J2250; J2930; J7030; J7620; J7799

== ENCOUNTER → 2017-10-10 | Outpatient (CLI) | payer MEDICARE, OTHER | LOC: GMAE 12:18 | PROVIDERS: ATTEND Family Medicine | DX: R97.20 Elevated prostate specific antigen [PSA] (principal) ==

== ENCOUNTER → 2017-10-19 | Outpatient (CLI) | payer MEDICARE, OTHER ==
--- NOTE | 2017-10-19 14:34 | US ---
EXAM DESCRIPTION: Renal: Ultrasound. CLINICAL HISTORY: GROSS HEMATURIA COMPARISON: Bilateral renal arterial Doppler evaluation on the same visit. TECHNIQUE: Transcutaneous scanning: Two-dimensional and Doppler modes. FINDINGS: Right kidney measures 11.0 x 5.4 x 5.2 cm; mid-renal cortical thickness 13 mm. . Normal echogenicity. No hydronephrosis No echogenic stones. Smooth contour of the kidney with no perinephric fluid. Normal vascularity. Proximal ureter not visualized. Left kidney measures 10.8 x 5.7 x 4.8 cm; mid-renal cortical thickness normal thickness. echogenicity. No hydronephrosis. No echogenic stones. Smooth contour of the kidney with no perinephric fluid. Normal vascularity.. Proximal ureter not visualized. Urinary bladder was visualized. 8.8 x 7.8 x 7.6 cm: 277.9 mL. Ureteral jet in the bladder were not seen Patient did not void Abdominal aorta diameter not measured IMPRESSION: 1. Normal size of both kidneys. Minimal cortical thickening on the right. Smooth capsules. No stones bilaterally. No hydronephrosis. Ureters were not seen. 2. Urinary bladder nondistended but patient could not void. No dominant mass in the bladder cavity. Ureteral jets were not seen. Electronically signed by: Ed Carlton MD 10/19/2017 2:32 PM CDT
== END ==
LOC: US 08:30
PROVIDERS: ATTEND Urology
DX: N39.0 Urinary tract infection, site not specified (principal); R31.0 Gross hematuria

== ENCOUNTER 2017-11-26 18:52 | Emergency (ER) | payer MEDICARE, OTHER ==
[2017-11-26 19:23] VITALS: BP 142/85; TEMP 99.6; O2SAT 93
[2017-11-26] MEDS ORDERED: CLINDAMYCIN HCL CAP 150 MG CAP PO ONE (19:23)
--- NOTE | 2017-11-26 19:25 | ED.PDOC ---
History of Present Illness - General Chief Complaint: Skin/Abrasion/Tear Stated Complaint: lower abdomen abcess Time Seen by Provider: 11/26/17 19:13 Source: patient, family Exam Limitations: no limitations - History of Present Illness Initial Comments: the patient is a 77-year-old male presenting to emergency room secondary to a lower abdominal skin abscess that has been present for 3-4 days and has been draining a little bit. There is significant surrounding cellulitis. There are no rebound or peritoneal signs. He does not appear to be septic. He is alert pleasant and cooperative. His is already put a dressing on it. No other areas of any abscesses or cellulitis. Timing/Duration: unsure Severity: mild Improving Factors: nothing Worsening Factors: nothing Associated Symptoms: denies symptoms Allergies/Adverse Reactions: Allergies Hydromorphone [From Dilaudid] Allergy (Verified 02/27/17 10:28) Sulfa Antibiotics Allergy (Verified 02/27/17 10:28) Rash itching Home Medications: Ambulatory Orders Enalapril Maleate 10 mg PO DAILY 01/17/15 Levothyroxine Sodium [Synthroid] 175 mcg PO DAILY 01/17/15 Simvastatin 40 mg PO BEDTIME 01/17/15 Tamsulosin HCl [Flomax] 0.4 mg PO BID 01/17/15 Arformoterol Tartrate [Brovana] 15 mcg INH BID 04/13/15 Metoprolol Tartrate 50 mg PO DAILY 05/02/16 Finasteride [Proscar] 5 mg PO DAILY 01/04/17 Clindamycin HCl 300 mg PO Q8H #20 cap 11/26/17 Review of Systems - Review of Systems Review of Systems: 11/26/17 19:24 review of systems is for new symptoms only. Constitutional: States: no symptoms reported EENTM: States: no symptoms reported Respiratory: States: no symptoms reported Cardiology: States: no symptoms reported Gastrointestinal/Abdominal: States: no symptoms reported Genitourinary: States: no symptoms reported Musculoskeletal: States: no symptoms reported Skin: States: see HPI Neurological: States: no symptoms reported Endocrine: States: no symptoms reported All other Systems: No Change from Baseline Past Medical History (General) - Patient Medical History Hx Seizures: No Hx Stroke: No Hx Dementia: Yes - forgetful Hx Asthma: Yes Hx of COPD: Yes Hx Cardiac Disorders: Yes Hx Congestive Heart Failure: Yes Hx Pacemaker: No Hx Hypertension: Yes Hx Thyroid Disease: Yes Hx Diabetes: No Hx Gastroesophageal Reflux: No Hx Renal Disease: Yes Hx Cancer: No Hx of HIV: No Hx Hepatitis C: No Hx MRSA: Yes MRSA Source:: Blood - Vaccination History Hx Tetanus, Diphtheria Vaccination: Yes Hx Influenza Vaccination: Yes Hx Pneumococcal Vaccination: Yes - Social History Hx Tobacco Use: Yes Hx Chewing Tobacco Use: No Hx Alcohol Use: No Hx Substance Use: No Hx Substance Use Treatment: No Hx Depression: No Hx Physical Abuse: No Hx Emotional Abuse: No Hx Suspected Abuse: No - Female History Patient : No Family Medical History - Family History Father Family History: Unknown Living Status: Physical Exam - Physical Exam General Appearance: Alert, Comfortable, No apparent distress Eye Exam: bilateral normal Ears, Nose, Throat: normal pharynx, other - hearing is chronically decreased Neck: non-tender, supple Respiratory: no respiratory distress, no accessory muscle use, wheezing - scattered which is his chronic state Cardiovascular/Chest: normal peripheral pulses Peripheral Pulses: radial,right: 2+, radial,left: 2+ Gastrointestinal/Abdominal: soft, other - lower abdominal abscess in the skin Rectal Exam: deferred Back Exam: normal inspection, no CVA tenderness Extremity: normal range of motion, non-tender, normal capillary refill Neurologic: cna ltc II-XII nml as tested, alert, normal mood/affect, oriented x 3 Skin Exam: normal color - cellulitis and abscess to the lower abdominal area Comments: Vital Signs - 24 hr 11/26/17 19:00 Temperature 99.6 F Pulse Rate [ 70 monitor] Respiratory 22 Rate Blood Pressure 142/85 [Left Arm] O2 Sat by Pulse 93 L Oximetry Progress - Progress Progress: 11/26/17 19:25 the patient is a 77-year-old male presenting to the emergency room secondary to a skin abscess to the lower abdomen that has been present for several days. It is already draining some. A #11 scalpel was used to widen the opening and a sterile cotton tip swab was used to break up any septations. Only about 1 cc of pus was obtained. The patient received his first dose of clindamycin here. He is going to be written for 7 days oral clindamycin. He needs to wash the site twice daily with an antibacterial soap and water. ER warnings are given for any significant worsening. Keep routine follow-up with primary care doctor otherwise. Risks and benefits of incision and drainage were explained to the patient prior and he did agree. The area is cleaned with alcohol. #11 blade scalpel was used to open the drainage hole wider. Cotton-tipped swabs were used to break up septations. Approximately 1 cc of pus was obtained. No cultures taken at this time as it was already open. Departure - Departure Clinical Impression: Abscess of skin Qualifiers: Site of cutaneous abscess: trunk Site of cutaneous abscess of trunk: abdominal wall Qualified Code(s): L02.211 - Cutaneous abscess of abdominal wall Disposition: Discharge to Home or Self Care Condition: Fair Departure Forms: ED Discharge - Pt. Copy, Patient Portal Self Enrollment Instructions: DI for Wound Infection Diet: diabetic diet Activity: increase activity as tolerated Referrals: Aidan Rea MD [Primary Care Provider] - 1-2 Weeks Prescriptions: Clindamycin HCl 300 mg PO Q8H #20 cap Home Medications: Ambulatory Orders Enalapril Maleate 10 mg PO DAILY 01/17/15 Levothyroxine Sodium [Synthroid] 175 mcg PO DAILY 01/17/15 Simvastatin 40 mg PO BEDTIME 01/17/15 Tamsulosin HCl [Flomax] 0.4 mg PO BID 01/17/15 Arformoterol Tartrate [Brovana] 15 mcg INH BID 04/13/15 Metoprolol Tartrate 50 mg PO DAILY 05/02/16 Finasteride [Proscar] 5 mg PO DAILY 01/04/17 Clindamycin HCl 300 mg PO Q8H #20 cap 11/26/17 Additional Instructions: the patient is a 77-year-old male presenting to the emergency room secondary to a skin abscess to the lower abdomen that has been present for several days. It is already draining some. A #11 scalpel was used to widen the opening and a sterile cotton tip swab was used to break up any septations. Only about 1 cc of pus was obtained. The patient received his first dose of clindamycin here. He is going to be written for 7 days oral clindamycin. He needs to wash the site twice daily with an antibacterial soap and water. ER warnings are given for any significant worsening. Keep routine follow-up with primary care doctor otherwise.
== END 2017-11-26 19:43 | disposition home or self-care (01) ==
LOC: ER 18:52
DX: L02.211 Cutaneous abscess of abdominal wall (principal); F03.90 Unspecified dementia, unspecified severity, without behavioral disturbance, psychotic disturbance, mood disturbance, and anxiety; J44.9 Chronic obstructive pulmonary disease, unspecified; I13.0 Hypertensive heart and chronic kidney disease with heart failure and stage 1 through stage 4 chronic kidney disease, or unspecified chronic kidney disease; N18.9 Chronic kidney disease, unspecified; I50.9 Heart failure, unspecified; E07.9 Disorder of thyroid, unspecified; Z79.899 Other long term (current) drug therapy; Z86.14 Personal history of Methicillin resistant Staphylococcus aureus infection; Z87.891 Personal history of nicotine dependence; Z88.5 Allergy status to narcotic agent; Z88.2 Allergy status to sulfonamides

== ENCOUNTER → 2018-02-14 | Outpatient (CLI) | payer MEDICARE, OTHER | LOC: GMAE 13:46 | PROVIDERS: ATTEND Family Medicine | DX: E03.9 Hypothyroidism, unspecified (principal); R97.20 Elevated prostate specific antigen [PSA] ==

== ENCOUNTER 2018-10-23 11:00 | Inpatient (IN) | payer MEDICARE, OTHER ==
--- NOTE | 2018-10-23 11:13 | HP ---
SUPERVISING PHYSICIAN: Anjum West M.D. CHIEF COMPLAINT: Shortness of breath, elevated potassium and creatinine. HISTORY OF PRESENT ILLNESS: This is a 78 year-old male patient who was seeing his primary care physician, Dr. Asher, today. He had seen Dr. Asher yesterday because he was unable to have a left heart cath due to his abnormal kidney function and elevated potassium. He was to have stents placed. His meal packer wanted him to followup due to his abnormal kidney function. Yesterday in office, his creatinine was 3.1 and potassium was 5.8. He came back today and his potassium had slightly improved to 4.9 and creatinine was 2.6. His baseline creatinine is about 1 to 1.3. He also complained of some shortness of breath and had some labored breathing. The patient had to go up on his oxygen at home from 2 liters to 3 liters and in the office his O2 sats on 3 liters nasal cannula was 88% and he was slightly dyspneic. He does wear oxygen chronically at home. He also had some lower extremity edema and Dr. Asher felt that the patient should be admitted to the hospital to monitor his renal function and to treat his exacerbation of COPD, and he was sent to the hospital for direct admission. He was a direct admission from Dr. Asher's office. A CBC was also done. His WBCs were 7.5 with hemoglobin 11.9, hematocrit 36.4. Chest x-ray showed no radiographic evidence of acute cardiopulmonary disease. His BNP was 35.7. He also had a renal ultrasound done that showed bilateral kidneys normal in size with minimal cortical thinning on the left. Increased cortical echogenicity bilaterally, but less than that of the liver. Capsule both kidneys lobulated. No hydronephrosis. Urinary bladder was visualized. Ureteral jets were not seen in the bladder on color Doppler. His vital signs at the clinic showed blood pressure 98/62, heart rate 69, O2 sat 88% on 3 liters of oxygen. Due to his poor renal function, his Sylvain inhibitor was stopped and due to his elevated potassium, his potassium was stopped. He was given an initial dose of Solu-Medrol 125 mg IV times 1 and given p.r.n. and scheduled breathing treatments. He was also started on azithromycin and Rocephin for exacerbation of chronic obstructive pulmonary disease. PAST MEDICAL HISTORY: 1. Benign prostatic hypertrophy. 2. Hyperlipidemia. 3. Hypertension. 4. Chronic obstructive pulmonary disease. 5. Coronary artery disease. 6. Hypothyroidism. PAST SURGICAL HISTORY: 1. Coronary artery stent placement times 2. 2. Vasectomy. 3. Hernia repair. HOME MEDICATIONS: 1. Furosemide. 2. Finasteride. 3. Metoprolol. 4. Synthroid. 5. Zocor. 6. Flomax. 7. Ipratropium bromide. 8. Brovana. 9. Budesonide. ALLERGIES: HYDROMORPHONE AND SULFA ANTIBIOTICS. FAMILY HISTORY: Positive for colon cancer. SOCIAL HISTORY: He is retired. He is . He has 4 children. He continues to smoke 1-1/2 to 1 pack of cigarettes daily and has smoked since he was age 16. He drinks alcohol on a social basis only. REVIEW OF SYSTEMS: GENERAL: Negative for chills, fever or weight changes. RESPIRATORY: Positive for dyspnea. Negative for coughing or wheezing. CARDIAC: Negative for chest pain, palpitations or tachycardia. GASTROINTESTINAL: Negative for nausea, vomiting, diarrhea or constipation. GENITOURINARY: Negative for dysuria, hematuria or polyuria. EXTREMITIES: Positive for pedal edema. SKIN: Negative for lesions or rashes. NEUROLOGIC: Negative for headaches, seizures or weakness. PHYSICAL EXAMINATION: VITAL SIGNS: Temperature 98, heart rate 64, blood pressure 92/58, respiratory rate 24, O2 sat 94% on 3 liters nasal cannula. GENERAL: This is a 78 year-old male patient who is lying in his hospital bed. He is in mild respiratory distress. HEENT: Normocephalic and atraumatic. Pupils are equal and reactive. Oropharynx is clear. NECK: Supple without mass. RESPIRATORY: Diminished breath sounds throughout with diffuse expiratory wheezing. He is slightly tachypneic and he has to speak in short phrases due to the dyspnea. CHEST: There is equal rise and fall of the chest with inspiration and expiration. CARDIOVASCULAR: Regular rate and rhythm. GASTROINTESTINAL: Abdomen is soft, nondistended, non-tender. Bowel sounds are positive. EXTREMITIES: No cyanosis or clubbing. He does have +2 pedal edema bilaterally. Bilateral pedal pulses are palpable at +2. SKIN: Warm and dry. NEUROLOGIC: He is awake, alert and oriented times three. He is extremely [id number]. Cranial nerves II-XII are grossly intact. LABORATORY: Per the history of present illness. Glucose 149, BUN 55, creatinine 2.6, sodium 143, potassium 4.9, chloride 103, CO2 is 31, calcium 9.3. Urinalysis shows 2+ urine leukocytes and 5 to 10 urine WBCs. RADIOLOGY: Per History of Present Illness. ASSESSMENT: 1. Acute on chronic renal failure. Yesterday his potassium was 5.8 with creatinine of 3.1. Today his potassium is 4.8 with creatinine 2.6. Baseline creatinine is 1.3. 2. Acute exacerbation of chronic obstructive pulmonary disease with chronic O2 use. 3. Benign prostatic hypertrophy. 4. Hypertension on medication. 5. Hypothyroidism presently on no supplementation. 6. Coronary artery disease. He had an abnormal stress test several weeks ago and was to have a left heart catheterization, and was unable to do it due to his renal function. 7. Chronic tobacco abuse. PLAN: The patient has been admitted to the hospital. I have given him 1 liter of judicious fluids. Hopefully we can improve his kidney function. I have also started him on Zithromax and Rocephin for his exacerbation of COPD. He also has p.r.n. and scheduled breathing treatments. I have given him a dose of Solu- Medrol and will taper that down to an oral dose of prednisone. I will repeat his lab in the morning. I will call Dr. Dutta, personalization specialist in [place], to see if he would like any further testing as he will need a nephrology consultation after discharge. Will continue to monitor closely and follow as needed. [facility][id number] [facility]
[2018-10-23] MEDS ORDERED: ALBUTEROL SULFATE 2.5 MG/3 ML VIAL NEB PRN (11:23)
[2018-10-23] MEDS ORDERED: methylPREDNISolone SODIUM SUC 125 MG/2 ML VIAL IV ONE (11:29)
[2018-10-23] MEDS ORDERED: IV SET AND CAP CHANGE INJ INJ SCH (11:30)
--- NOTE | 2018-10-23 13:15 | RAD ---
EXAM DESCRIPTION: Chest,2 Views CLINICAL HISTORY: chf copd COMPARISON: March 20, 2017 FINDINGS: Two-view chest x-ray shows mild enlargement of the cardiac silhouette without pulmonary vascular congestion. Tortuosity the thoracic aorta. Interval removal of endotracheal tube and right-sided PICC line. The lungs are normally aerated. Chronic appearing increased interstitial markings are seen without acute appearing infiltrate or consolidation.. Costophrenic angles are not included in the [id number]. Moderate disc degenerative changes of the spine. IMPRESSION: No radiographic evidence of acute cardiopulmonary disease. Stable cardiomegaly. Electronically signed by: Miguel Angel John MD 10/23/2018 1:13 PM CDT
[2018-10-23] MEDS: IPRATROPIUM/ALBUTEROL 3 ML VIAL INH SCH ×3 (13:20→20:12)
[2018-10-23] MEDS ORDERED: methylPREDNISolone SODIUM SUC 125 MG/2 ML VIAL ONE (13:39)
--- NOTE | 2018-10-23 14:29 | US ---
EXAM DESCRIPTION: Renal: Ultrasound. CLINICAL HISTORY: 78 years Male acute renal failure COMPARISON: None TECHNIQUE: Transcutaneous scanning: Two-dimensional and Doppler modes. FINDINGS: Right kidney measures 11.5 x 5.1 x 4.9 cm; mid-renal cortical thickness normal. . Increased cortical echogenicity, less echogenic than the liver. No hydronephrosis No echogenic stones. Mildly lobulated contour of the kidney with no perinephric fluid. Normal vascularity. Proximal ureter not visualized. Left kidney measures 10.0 x 5.7 x 4.9 cm; mid-renal cortical thickness 12 mm.. Increased cortical echogenicity, less echogenic than the liver. No hydronephrosis. No echogenic stones. Lobulated contour of the kidney with no perinephric fluid. Normal vascularity.. Proximal ureter not visualized. Urinary bladder was visualized. Volume not measured Ureteral jet in the bladder not seen by color Doppler Abdominal aorta: not measured. IMPRESSION: 1. Bilateral kidneys normal size with minimal cortical thinning on the left. Increased cortical echogenicity bilaterally but less than that of the liver. Capsule of both kidneys lobulated. No hydronephrosis. 2. Urinary bladder was visualized. Ureteral jets were not seen in the bladder on color Doppler. Electronically signed by: Ed Carlton MD 10/23/2018 2:27 PM CDT
[2018-10-23] MEDS ORDERED: SODIUM CHLORIDE 0.45% 1000ML 1,000 ML IVS ONE (15:28)
[2018-10-23] MEDS ORDERED: SODIUM CHLORIDE 0.9% 250ML 250 ML ONE (16:35)
[2018-10-23] MEDS ORDERED: cefTRIAXone SODIUM 1 GM VIAL ONE (16:35)
[2018-10-23] MEDS ORDERED: SODIUM CHL 0.9% 50ML MIN-BAG+ 50 ML IVPB ONE (16:35)
[2018-10-23] MEDS ORDERED: AZITHROMYCIN IV 500 MG VIAL IVPB ONE (16:36)
[2018-10-23] MEDS: cefTRIAXone SODIUM 1 GM in SODIUM CHL 0.9% 50ML MIN-BAG+ 50 ML IVPB SCH (17:04)
[2018-10-23] MEDS: AZITHROMYCIN IV 500 MG in SODIUM CHLORIDE 0.9% 250ML 250 ML IVPB SCH (18:29)
[2018-10-23] MEDS ORDERED: methylPREDNISolone SODIUM SUC 40 MG/ML VIAL ONE (19:10)
[2018-10-23] MEDS ORDERED: PANTOPRAZOLE SODIUM IV 40 MG VIAL ONE (19:10)
[2018-10-23] MEDS: TAMSULOSIN 0.4 MG CAP PO SCH (20:09)
[2018-10-23] MEDS: SIMVASTATIN 20 MG TAB PO SCH (20:09)
[2018-10-23] MEDS: ENOXAPARIN SODIUM 30 MG/0.3 ML SYG SUBCU SCH (20:09)
[2018-10-23] MEDS: SODIUM CHLORIDE 0.9% (FLUSH) 10 ML SYG IV SCH (20:10)
[2018-10-23] MEDS: ARFORMOTEROL TARTRATE 15 MCG/2 ML NEB NEB SCH (20:12)
[2018-10-23] MEDS: methylPREDNISolone SODIUM SUC 40 MG/ML VIAL IV SCH (21:24)
[2018-10-24] MEDS: methylPREDNISolone SODIUM SUC 40 MG/ML VIAL IV SCH ×3 (06:03→21:14)
[2018-10-24] MEDS: LEVOTHYROXINE SODIUM 0.1 MG TAB PO SCH ×2 (06:03→08:37)
[2018-10-24] MEDS: LEVOTHYROXINE SODIUM 0.075 MG TAB PO SCH ×2 (06:03→08:37)
[2018-10-24] MEDS: SODIUM CHLORIDE 0.9% (FLUSH) 10 ML SYG IV PRN (06:03)
[2018-10-24] MEDS ORDERED: PANTOPRAZOLE SODIUM IV 40 MG VIAL IV SCH (06:30)
[2018-10-24] MEDS: IPRATROPIUM/ALBUTEROL 3 ML VIAL INH SCH ×4 (07:15→20:16)
[2018-10-24] MEDS: ARFORMOTEROL TARTRATE 15 MCG/2 ML NEB NEB SCH ×2 (07:20→20:16)
--- NOTE | 2018-10-24 07:23 | RAD ---
EXAM DESCRIPTION: XR CHEST 2 VIEWS CLINICAL HISTORY: Pneumonia COMPARISON: 10/23/2018 TECHNIQUE: PA/lateral FINDINGS: Normal heart size. Tortuous ectatic atherosclerotic aorta. Prominent main pulmonary arteries to hypertension. Lungs are hyperinflated related to COPD/emphysema No pulmonary edema, alveolar infiltrate or effusion. No pneumothorax. No acute bony abnormality IMPRESSION: COPD/emphysema No acute infiltrate Electronically signed by: Drew Ott MD 10/24/2018 7:22 AM CDT
[2018-10-24] MEDS: FINASTERIDE 5 MG TAB PO SCH (08:36)
[2018-10-24] MEDS: TAMSULOSIN 0.4 MG CAP PO SCH ×2 (08:36→20:47)
[2018-10-24] MEDS: SODIUM CHLORIDE 0.9% (FLUSH) 10 ML SYG IV SCH ×2 (08:37→20:47)
[2018-10-24] MEDS: METOPROLOL TARTRATE 50 MG TAB PO SCH (08:37)
[2018-10-24] MEDS ORDERED: LEVOTHYROXINE SODIUM 0.075 MG TAB PO SCH (09:00)
[2018-10-24] MEDS ORDERED: LEVOTHYROXINE SODIUM 0.1 MG TAB PO SCH (09:00)
--- NOTE | 2018-10-24 10:34 | PN ---
[place] PHYSICIAN: Anjum West MD DATE: 10/24/18 SUBJECTIVE: The patient is lying in bed. He feels better. He is still slightly short of breath at times. He has no chest pain, nausea, vomiting or diarrhea. OBJECTIVE: VITAL SIGNS: Temperature 98.8. Heart rate 67. Blood pressure 104/69. Respiratory rate 20. O2 saturation 92% on 2 liters nasal cannula. RESPIRATORY: Diminished breath sounds throughout. There is no expiratory wheezing or crackles. CARDIAC: Regular rate and rhythm. GASTROINTESTINAL: Abdomen is soft, nondistended, nontender. Bowel sounds are positive. EXTREMITIES: There is a trace of pedal edema in his lower extremities. Bilateral pedal pulses are palpable at +2. NEUROLOGIC: Awake, alert and oriented times three, but he is very hard of hearing. LABORATORY: CBC shows WBC of 8, hemoglobin 11.5, hematocrit 35.7. Sodium 137, potassium 5.3, chloride 102, carbon dioxide 23, BUN 57, creatinine 2.28. Calcium 8.7, phosphorous 4.2, magnesium 2. Chest x-ray shows no acute process with emphysematous and COPD/emphysema. All other labs and films have been reviewed via the EMR. ASSESSMENT: 1. Acute on chronic renal failure. On 10/22/18, his potassium was 5.8 with creatinine of 3.1. Today his potassium is 5.3 with creatinine 2.28. Baseline creatinine is 1.3. 2. Acute exacerbation of chronic obstructive pulmonary disease with chronic O2 use. 3. Benign prostatic hypertrophy. 4. Hypertension on medication. 5. Hypothyroidism presently on no supplementation. 6. Coronary artery disease. He had an abnormal stress test several weeks ago and was to have a left heart catheterization, and was unable to do it due to his renal function. 7. Chronic tobacco abuse. PLAN: We will continue present supportive care. I have spoken with Dr. Dutta, charge attendant in [place]. He recommended that in addition to discontinuing the LEIGHTON inhibitor and the potassium that we did yesterday, that we stop his Lasix for now. He also asked that we do his routine lab work which is a CBC, CMP and magnesium, phosphorous, uric acid, parathyroid hormone and 24 hour urine for protein, catecholamines and cortisol, creatinine clearance and VMA. After discharge, he will followup with Dr. Dutta to review those labs. I have decreased his Solu-Medrol and we will transition him to oral prednisone tomorrow. We will continue to monitor the patient closely and follow as needed. [facility][id number] [facility]
[2018-10-24] MEDS ORDERED: SODIUM CHLORIDE 0.9% 250ML 250 ML ONE (16:47)
[2018-10-24] MEDS ORDERED: SODIUM CHL 0.9% 50ML MIN-BAG+ 50 ML IVPB ONE (16:48)
[2018-10-24] MEDS ORDERED: cefTRIAXone SODIUM 1 GM VIAL ONE (16:48)
[2018-10-24] MEDS ORDERED: AZITHROMYCIN IV 500 MG VIAL IVPB ONE (16:49)
[2018-10-24] MEDS: cefTRIAXone SODIUM 1 GM in SODIUM CHL 0.9% 50ML MIN-BAG+ 50 ML IVPB SCH (16:55)
[2018-10-24] MEDS: AZITHROMYCIN IV 500 MG in SODIUM CHLORIDE 0.9% 250ML 250 ML IVPB SCH (18:10)
[2018-10-24] MEDS ORDERED: LEVOTHYROXINE SODIUM 0.075 MG TAB ONE (19:17)
[2018-10-24] MEDS ORDERED: LEVOTHYROXINE SODIUM 0.1 MG TAB ONE (19:17)
[2018-10-24] MEDS: SIMVASTATIN 20 MG TAB PO SCH (20:46)
[2018-10-24] MEDS: ENOXAPARIN SODIUM 30 MG/0.3 ML SYG SUBCU SCH (20:47)
[2018-10-25] MEDS: methylPREDNISolone SODIUM SUC 40 MG/ML VIAL IV SCH (06:10)
[2018-10-25] MEDS: SODIUM CHLORIDE 0.9% (FLUSH) 10 ML SYG IV PRN (06:11)
[2018-10-25] MEDS ORDERED: LEVOTHYROXINE SODIUM 0.1 MG TAB PO SCH (06:30)
[2018-10-25] MEDS ORDERED: LEVOTHYROXINE SODIUM 0.075 MG TAB PO SCH (06:30)
[2018-10-25] MEDS ORDERED: PANTOPRAZOLE SODIUM TAB 40 MG PO SCH (06:30)
[2018-10-25] MEDS: FINASTERIDE 5 MG TAB PO SCH (08:06)
[2018-10-25] MEDS: TAMSULOSIN 0.4 MG CAP PO SCH (08:07)
[2018-10-25] MEDS: SODIUM CHLORIDE 0.9% (FLUSH) 10 ML SYG IV SCH (08:07)
[2018-10-25] MEDS: METOPROLOL TARTRATE 50 MG TAB PO SCH (08:07)
[2018-10-25] MEDS: IPRATROPIUM/ALBUTEROL 3 ML VIAL INH SCH ×2 (08:12→12:20)
[2018-10-25] MEDS: ARFORMOTEROL TARTRATE 15 MCG/2 ML NEB NEB SCH (08:12)
[2018-10-25] MEDS ORDERED: predniSONE 20 MG TAB PO SCH (09:00)
[2018-10-25] MEDS ORDERED: AZITHROMYCIN 250 MG TAB PO ONE ×2 (12:22→12:34)
[2018-10-25] MEDS ORDERED: cefTRIAXone SODIUM 1 GM in SODIUM CHL 0.9% 50ML MIN-BAG+ 50 ML IVPB SCH (12:30)
[2018-10-25] MEDS ORDERED: cefTRIAXone SODIUM 1 GM VIAL ONE (12:34)
[2018-10-25] MEDS ORDERED: SODIUM CHL 0.9% 50ML MIN-BAG+ 50 ML IVPB ONE (12:35)
--- NOTE | 2018-10-25 13:36 | DS ---
SUPERVISING PHYSICIAN: Anjum West MD DISCHARGE DIAGNOSIS: 1. Acute on chronic renal failure. On 10/22/18, his potassium was 5.8 with creatinine of 3.1. Today his potassium is 5.3 with creatinine 2.28. Baseline creatinine is 1.3. 2. Acute exacerbation of chronic obstructive pulmonary disease with chronic O2 use. 3. Benign prostatic hypertrophy. 4. Hypertension on medication. 5. Hypothyroidism presently on no supplementation. 6. Coronary artery disease. He had an abnormal stress test several weeks ago and was to have a left heart catheterization, and was unable to do it due to his renal function. 7. Chronic tobacco abuse. HISTORY OF PRESENT ILLNESS: This is a 78-year-old male patient who saw his primary care physician, Dr. Asher, on the day of admission. Earlier, he was unable to have a left heart cath due to his abnormal kidney function and elevated potassium. He was to have stents placed. The day prior to his admission, his creatinine was 3.1 and potassium was 5.8. He returned to the clinic on the date of admission and his potassium was slightly improved to 4.9, creatinine improved to 2.6 and O2 saturations on 3 liters were 88% and he was dyspneic. Baseline creatinine is about 1.1 to 1.3 He does wear oxygen chronically at home. He also had some lower extremity edema and his primary care physician, Dr. Asher, felt that the patient should be admitted to the hospital to monitor his renal function and to treat his exacerbation of COPD. He was sent to the hospital for direct admission. His WBCs were 7.5 with hemoglobin 11.9, hematocrit 36.4. Chest x-ray showed no radiographic evidence of acute cardiopulmonary disease. His BNP was 35.7. He also had a renal ultrasound done that showed bilateral kidneys normal in size with minimal cortical thinning on the left. Increased cortical echogenicity bilaterally, but less than that of the liver. Capsules of both kidneys lobulated. No hydronephrosis. Urinary bladder was visualized. Ureteral jets were not seen in the bladder on color Doppler. His vital signs at the clinic showed blood pressure 98/62, heart rate 69, O2 sat 88% on 3 liters nasal cannula. Due to his poor renal function, his LEIGHTON inhibitor was stopped as well as his potassium was stopped. He was given an initial dose of Solu-Medrol 125 mg IV times 1 and given p.r.n. and scheduled breathing treatments. He was also started on azithromycin and Rocephin for exacerbation of chronic obstructive pulmonary disease. HOSPITAL COURSE: Over the next 24 to 48 hours, his breathing improved. He was transitioned off the IV Solu-Medrol to p.o. prednisone. His kidney functions only slowly improved. I did speak with Dr. Dutta, wine sales representative in [place], and he recommended nephrology lab workup and followup appointment with him. Overnight, his clinical condition improved. His vital signs were stable and his oxygen saturations on 2 liters nasal cannula were in the mid-90s. He has been walking in the hallways here at the hospital. I called Dr. Dutta to inform him that his creatinine was 2.11 today and his potassium was 5.1 and he felt like he could be discharged home with close followup. LABORATORY: WBCs initially were 7,500, but after prednisone treatment, today 13,200. Hemoglobin and hematocrit are stable at 11.5 and 35.7. Sodium 140, initial potassium 5.3 and today is 5.1. BUN stable at 62. Today, his creatinine is slightly lower at 2.11. Uric acid 11.7. His other nephrology lab workup including a 24 hour urine are pending. Magnesium stable at 2.2 with phosphorous 4. RADIOLOGY: Renal ultrasound and initial chest x-ray are per the history of present illness. His followup chest x-ray shows COPD/emphysema with no acute infiltrate. DISCHARGE PLAN: The patient will be discharged home in stable condition. He is to resume his previous activity as well as his previous diet. His previous medications are to be resumed with the exception of his enalapril, potassium and Lasix. Dr. Asher can evaluate him to see if he needs Lasix at his followup appointment which is on 10/30/18 at 2:[address] Dutta said he would like to schedule him for an appointment the next time he is in [place]. His nephrology labs should be complete at that time. It is recommended at his followup appointment that he have a chest x-ray, CBC and CMP. In addition t the home medications that were resumed, I have also given him a prednisone taper as well as 12 days of cefdinir. He is to continue his breathing treatments as previously ordered and he is also to continue wearing his oxygen. He is to return to the hospital or call Dr. Asher's office for any problems or complications. DISCHARGE MEDICATIONS: 1. Levothyroxine. 2. Tamsulosin. 3. Simvastatin. 4. Brovana. 5. Metoprolol. 6. Finasteride. 7. Atrovent. 8. Budesonide. 9. Cefdinir. 10. Prednisone. [facility][id number] [facility]
[2018-10-25 13:41] VITALS: BP 110/62; TEMP 98.4
[2018-10-25 14:16] VITALS: O2SAT 96
== END 2018-10-25 13:30 | disposition home or self-care (01) | DRG 683 ==
LOC: MS 11:00
PROVIDERS: ADMIT Nurse Practitioner Acute Care; ATTEND Nurse Practitioner Acute Care
DX: N17.9 Acute kidney failure, unspecified (principal); J44.1 Chronic obstructive pulmonary disease with (acute) exacerbation; N18.9 Chronic kidney disease, unspecified; I12.9 Hypertensive chronic kidney disease with stage 1 through stage 4 chronic kidney disease, or unspecified chronic kidney disease; N40.0 Benign prostatic hyperplasia without lower urinary tract symptoms; E03.9 Hypothyroidism, unspecified; I25.10 Atherosclerotic heart disease of native coronary artery without angina pectoris; F17.210 Nicotine dependence, cigarettes, uncomplicated; E87.5 Hyperkalemia; E78.5 Hyperlipidemia, unspecified; Z99.81 Dependence on supplemental oxygen; Z95.5 Presence of coronary angioplasty implant and graft; Z88.2 Allergy status to sulfonamides; Z88.5 Allergy status to narcotic agent; Z79.899 Other long term (current) drug therapy

== ENCOUNTER 2018-11-04 09:53 | Inpatient (IN) | payer MEDICARE, OTHER ==
[2018-11-04] MEDS ORDERED: IPRATROPIUM/ALBUTEROL 3 ML VIAL NEB ONE (10:01)
[2018-11-04] MEDS ORDERED: LEVALBUTEROL NEBS 1.25 MG/3 ML VIAL NEB ONE (10:01)
[2018-11-04] MEDS ORDERED: FUROSEMIDE INJ 40 MG/4 ML VIAL ONE (10:02)
--- NOTE | 2018-11-04 10:09 | ED.PDOC ---
History of Present Illness - General Chief Complaint: Respiratory Problem Stated Complaint: shortness of breath Time Seen by Provider: 11/04/18 10:05 Source: patient Exam Limitations: no limitations - History of Present Illness Initial Comments: Patient presents with dyspnea that started shortly after waking up this morning. He was having chest pain at that time and called EMS. EMS gave him two breathing treatments and the pain resolved. Patient has COPD with chronic oxygen use at 2-3L. He was in the hospital here last week for COPD exacerbation. Upon presentation, he complains of mild dyspnea but no chest pain. No other complaints. Timing/Duration: 1-3 hours Severity: moderate Improving Factors: nothing Worsening Factors: nothing Associated Symptoms: chest pain Allergies/Adverse Reactions: Allergies Hydromorphone [From Dilaudid] Allergy (Severe, Verified 10/23/18 19:58) sob Sulfa Antibiotics Allergy (Intermediate, Verified 10/23/18 19:58) Rash itching Home Medications: Ambulatory Orders Levothyroxine Sodium [Synthroid] 175 mcg PO DAILY 01/17/15 Simvastatin 40 mg PO BEDTIME 01/17/15 Tamsulosin HCl [Flomax] 0.4 mg PO BID 01/17/15 Arformoterol Tartrate [Brovana] 15 mcg INH BID 04/13/15 Metoprolol Tartrate 50 mg PO DAILY 05/02/16 Finasteride [Proscar] 5 mg PO DAILY 01/04/17 Budesonide (Inhalation) [Budesonide] 1 mg IN BID 10/23/18 Ipratropium [place] Hfa [Atrovent Hfa] 17 mcg INH QID 10/23/18 Cefdinir 300 mg PO BID #14 capsule 10/25/18 Prednisone See Taper PO DAILY #30 tab 10/25/18 Review of Systems - Review of Systems Constitutional: States: no symptoms reported EENTM: States: no symptoms reported Respiratory: States: see HPI Cardiology: States: see HPI Gastrointestinal/Abdominal: States: no symptoms reported Genitourinary: States: no symptoms reported Musculoskeletal: States: no symptoms reported Skin: States: no symptoms reported Neurological: States: no symptoms reported Endocrine: States: no symptoms reported Hematologic/Lymphatic: States: no symptoms reported Past Medical History (General) - Patient Medical History Hx Seizures: No Hx Stroke: No Hx Dementia: Yes - forgetful Hx Asthma: No Hx of COPD: Yes Hx Cardiac Disorders: Yes Hx Congestive Heart Failure: No Hx Pacemaker: No Hx Hypertension: No Hx Thyroid Disease: Yes Hx Diabetes: No Hx Gastroesophageal Reflux: No Hx Renal Disease: Yes Hx Cancer: No Hx of HIV: No Hx Hepatitis C: No Hx MRSA: No MRSA Source:: Blood - Vaccination History Hx Tetanus, Diphtheria Vaccination: Yes Hx Influenza Vaccination: Yes Hx Pneumococcal Vaccination: Yes - Social History Hx Tobacco Use: Yes Hx Chewing Tobacco Use: No Hx Alcohol Use: No Hx Substance Use: No Hx Substance Use Treatment: No Hx Depression: No Hx Physical Abuse: No Hx Emotional Abuse: No Hx Suspected Abuse: No - Female History Patient : No Family Medical History - Family History Father Family History: Unknown Living Status: Physical Exam - Physical Exam General Appearance: Alert Eye Exam: bilateral normal Ears, Nose, Throat: normal ENT inspection Neck: non-tender, full range of motion, supple Respiratory: wheezing - expiratory wheezing in all lung moore, no accessory muscle use, no rales/rhonchi Cardiovascular/Chest: normal peripheral pulses, regular rate, rhythm Gastrointestinal/Abdominal: normal bowel sounds, non tender, soft Back Exam: normal inspection, no CVA tenderness Extremity: normal range of motion, non-tender, normal inspection Neurologic: no motor/sensory deficits, alert, normal mood/affect, oriented x 3 Skin Exam: normal color Lymphatic: no adenopathy Progress - Progress Progress: 11/04/18 13:53 Laboratory Tests 11/04/18 11/04/18 11/04/18 09:34 09:34 09:34 WBC 12.3 H RBC 4.77 Hgb 13.7 L Hct 42.0 MCV 88.0 MCH 28.8 MCHC 32.7 L RDW 15.0 H Plt Count 127 L MPV 8.0 Absolute Neuts (auto) 10.30 H Absolute Lymphs (auto) 1.50 Absolute Monos (auto) 0.40 Absolute Eos (auto) 0.00 Absolute Basos (auto) 0.00 Neutrophils % 83.9 H Lymphocytes % 12.3 L Monocytes % 3.4 Eosinophils % 0.2 L Basophils % 0.2 PT 10.5 INR 1.05 PTT (SP) 21.6 L Sodium 138 Potassium 4.1 Chloride 102 Carbon Dioxide 26 Anion Gap 14.1 BUN 37 H Creatinine 1.56 H BUN/Creatinine Ratio 23.7 H Random Glucose 177 H Serum Osmolality 288.7 Calcium 9.1 Total Bilirubin 0.8 AST 26 ALT 38 Alkaline Phosphatase 36 L Creatine Kinase CK-MB (CK-2) CK-MB (CK-2) % Troponin I B-Natriuretic Peptide Serum Total Protein 6.3 L Albumin 3.6 Globulin 2.7 Albumin/Globulin Ratio 1.3 11/04/18 11/04/18 09:34 12:19 WBC RBC Hgb Hct MCV MCH MCHC RDW Plt Count MPV Absolute Neuts (auto) Absolute Lymphs (auto) Absolute Monos (auto) Absolute Eos (auto) Absolute Basos (auto) Neutrophils % Lymphocytes % Monocytes % Eosinophils % Basophils % PT INR PTT (SP) Sodium Potassium Chloride Carbon Dioxide Anion Gap BUN Creatinine BUN/Creatinine Ratio Random Glucose Serum Osmolality Calcium Total Bilirubin AST ALT Alkaline Phosphatase Creatine Kinase 127 CK-MB (CK-2) 11.2 H* CK-MB (CK-2) % 8.82 H Troponin I 0.09 H* 0.08 H* B-Natriuretic Peptide 278.0 H* Serum Total Protein Albumin Globulin Albumin/Globulin Ratio Patient received two breathing treatments in the ambulance. Solumedrol 125 mg IV x one given here. The dyspnea improved but the wheezing remained. He was still requiring 3 Liters of oxygen by [place]. Admitted for COPD exacerbation by Alma Sánchez. Departure - Departure Clinical Impression: COPD exacerbation Disposition: Admit Patient Condition: Good Departure Forms: ED Discharge - Pt. Copy, Patient Portal Self Enrollment Diet: other - as per hospitalist Activity: increase activity as tolerated Referrals: Aidan Rea MD [Active Staff] - 1-2 Weeks Home Medications: Ambulatory Orders Levothyroxine Sodium [Synthroid] 175 mcg PO DAILY 01/17/15 Simvastatin 40 mg PO BEDTIME 01/17/15 Tamsulosin HCl [Flomax] 0.4 mg PO BID 01/17/15 Arformoterol Tartrate [Brovana] 15 mcg INH BID 04/13/15 Metoprolol Tartrate 50 mg PO DAILY 05/02/16 Finasteride [Proscar] 5 mg PO DAILY 01/04/17 Budesonide (Inhalation) [Budesonide] 1 mg IN BID 10/23/18 Ipratropium [place] Hfa [Atrovent Hfa] 17 mcg INH QID 10/23/18 Cefdinir 300 mg PO BID #14 capsule 10/25/18 Prednisone See Taper PO DAILY #30 tab 10/25/18 Critical Care Note - Critical Care Note Total Time (mins): 120
--- NOTE | 2018-11-04 10:25 | RAD ---
EXAM DESCRIPTION: Chest,1 View CLINICAL HISTORY: 78 years Male, dyspnea COMPARISON: 10/24/2018 TECHNIQUE: Single frontal view of the chest. IMPRESSION: Stably enlarged cardiac silhouette. Partially calcified aorta. Scattered basilar atelectasis without lobar or masslike consolidation. Lungs appear emphysematous. No pleural effusion or pneumothorax. Thoracic spondylosis. Electronically signed by: Zbigniew Olivera MD 11/04/2018 10:23 AM CDT
[2018-11-04] MEDS ORDERED: methylPREDNISolone SODIUM SUC 125 MG/2 ML VIAL IV ONE (10:36)
[2018-11-04] MEDS ORDERED: ASPIRIN (CHEWABLE) 81 MG TAB PO ONE (10:56)
--- NOTE | 2018-11-04 14:32 | HP ---
SUPERVISING PHYSICIAN: Josue Asher M.D. CHIEF COMPLAINT: Shortness of breath. HISTORY OF PRESENT ILLNESS: This is a 78 year-old male patient who has had increasing shortness of breath over the last 24 hours. It was much worse this morning when he woke up. He was discharged from the hospital about a week or so ago on steroids and antibiotics. He also had acute on chronic renal failure as well as an exacerbation of chronic obstructive pulmonary disease at that time. He is still taking his prednisone taper. Today when he came to the Emergency Room he also had some chest pain that radiated through to the back. It also went down his left shoulder and up the back of his neck. It was mostly with breathing and it has just stopped since he was in the Emergency Room. He does have a significant history of COPD and he uses chronic oxygen at home at 2 to 3 liters. He still is exposed to second hand smoke from his . He did quit smoking about 4-1/2 years ago. She continues to smoke. He always has some mild dyspnea but he does not have chest pain and the dyspnea has worsened over the last 24 hours. In the Emergency Room, his initial vital signs showed a temperature of 96.9, blood pressure 121/73, respiratory rate 24, O2 sat 85% on 2 liters. With rest and a breathing treatment it went up to 91%. His lab work showed WBC 12,300 with hemoglobin 13.7, hematocrit 42. He did have a left shift on his differential. Coagulation studies were unremarkable. Electrolytes are basically within normal limits. BUN 37, creatinine 1.56, baseline creatinine is around 1 to 1.1. Glucose 177. Alkaline phosphatase 36. CK-MB 11.2, troponin 0.09. His followup troponin was 0.08. BNP was slightly elevated at 278. Blood cultures were drawn. Chest x-ray was done that showed stably enlarged cardiac silhouette, partially calcified aorta with scattered basilar atelectasis without lobar or mass-like consolidation. The lungs appear emphysematous with no pleural effusions or pneumothorax. Thoracic spondylosis. He was given a dose of Solu-Medrol as well as given several breathing treatments. He was also given a baby aspirin. I was called for hospital admission. PAST MEDICAL HISTORY: 1. Benign prostatic hypertrophy. 2. Hyperlipidemia. 3. Hypertension. 4. Chronic obstructive pulmonary disease. 5. Coronary artery disease. 6. Hypothyroidism. PAST SURGICAL HISTORY: 1. Coronary artery stent placement times 2. 2. Vasectomy. 3. Hernia repair. HOME MEDICATIONS: Per the EMR and awaiting verification. ALLERGIES: HYDROMORPHONE AND SULFA ANTIBIOTICS. FAMILY HISTORY: Positive for colon cancer. SOCIAL HISTORY: He is retired. He is . He has 4 children. He quit smoking approximately 4-1/2 years ago but at that time he smoked 1-1/2 to 2 packs of cigarettes daily and has smoked since the age of 16. Even though he quit, he is exposed to secondhand smoke on a daily basis from his . He does drink alcohol on a social basis. Denies any illicit drug use. REVIEW OF SYSTEMS: GENERAL: Negative for fever, chills or weight changes. HEENT: Negative for sinus symptom, ear pain, vision changes or sore throat. RESPIRATORY: Positive for shortness of breath and coughing. Negative for wheezing. CARDIAC: Positive for chest pain that radiates to his back and up the back of his neck. Negative for palpitations or tachycardia. GASTROINTESTINAL: Negative for nausea, vomiting, diarrhea or constipation. GENITOURINARY: Negative for dysuria, hematuria or polyuria. EXTREMITIES: Positive for a small amount of edema. SKIN: Negative for lesions or rashes. NEUROLOGIC: Negative for headaches, seizures or weakness. PHYSICAL EXAMINATION: VITAL SIGNS: Temperature 97.6, heart rate 64, blood pressure 137/81, respiratory rate 22, O2 sat 96% on 2 liters nasal cannula. GENERAL: This is a 78 year-old male patient who is lying in his hospital bed. He is in moderate respiratory distress. HEENT: Normocephalic and atraumatic. Pupils are equal and reactive. Oropharynx is clear. NECK: Supple without mass. RESPIRATORY: Diminished breath sounds throughout. He is tachypneic and he has to speak in short phrases due to the shortness of breath. CHEST: There is equal rise and fall of the chest with inspiration and expiration. CARDIOVASCULAR: Regular rate and rhythm. GASTROINTESTINAL: Abdomen is soft, nondistended, non-tender. Bowel sounds are positive. EXTREMITIES: No cyanosis or clubbing. He has trace of pedal edema bilaterally. Bilateral pedal pulses are palpable at +2. SKIN: Warm and dry. NEUROLOGIC: He is awake, alert and oriented times three, but he is extremely [id number]. Cranial nerves II-XII are grossly intact. LABORATORY: Labs and films are as per the history of present illness. ASSESSMENT: 1. Acute exacerbation of chronic obstructive pulmonary disease in a patient that quit smoking about 4-1/2 years ago but is still subjected to secondhand smoke on a daily basis. 2. Acute on chronic renal failure. His creatinine on admission was 1.56. His baseline creatinine is about 1 to 1.1. 3. Benign prostatic hypertrophy. 4. Hypertension on medications. 5. Hypothyroidism presently on no supplementation. 6. Coronary artery disease. He did have an abnormal stress test a month or so ago and was to have a left heart cath, but was unable to do it due to his renal function and is awaiting that procedure at this time. 7. History of chronic tobacco abuse. Again, he stopped smoking about 4-1/2 years ago but is exposed on a daily basis to second hand smoke. PLAN: The patient has been admitted to the hospital. I have initiated aggressive pulmonary hygiene that includes breathing treatments both scheduled and p.r.n.. He was on Zithromax and Rocephin the last time he was in here, so at this time I will put him on doxycycline. I will also give him a Solu-Medrol taper. He most likely will need to be on chronic prednisone as an outpatient. I will give him judicious amounts of fluid overnight. I have drawn lab and chest x-ray in the morning. I also did initiate the chest pain protocol and we will double check serial cardiac enzymes. Will continue to monitor closely and follow as needed. #[id number] [facility]
[2018-11-04] MEDS ORDERED: ALBUTEROL SULFATE 2.5 MG/3 ML VIAL NEB PRN (14:44)
[2018-11-04] MEDS ORDERED: ACETAMINOPHEN 325 MG TAB PO PRN (14:44)
[2018-11-04] MEDS ORDERED: SODIUM CHLORIDE 0.9% (FLUSH) 10 ML SYG IV PRN (14:44)
[2018-11-04] MEDS ORDERED: IV SET AND CAP CHANGE INJ INJ SCH (15:00)
[2018-11-04] MEDS ORDERED: DOXYCYCLINE HYCLATE IV 100 MG VIAL IVPB ONE ×2 (16:07→19:33)
[2018-11-04] MEDS ORDERED: SODIUM CHLORIDE 0.9% 250ML 250 ML ONE ×2 (16:07→19:33)
[2018-11-04] MEDS: DOXYCYCLINE HYCLATE IV 100 MG in SODIUM CHLORIDE 0.9% 250ML 250 ML IVPB SCH (16:19)
[2018-11-04] MEDS: IPRATROPIUM/ALBUTEROL 3 ML VIAL INH SCH ×2 (17:13→20:22)
[2018-11-04] MEDS ORDERED: NITROGLYCERIN 0.4 MG 25 EA TAB SL PRN (19:20)
[2018-11-04] MEDS ORDERED: PANTOPRAZOLE SODIUM TAB 40 MG PO ONE (19:33)
[2018-11-04] MEDS: SODIUM CHLORIDE 0.9% (FLUSH) 10 ML SYG IV SCH (20:50)
[2018-11-04] MEDS ORDERED: ENOXAPARIN SODIUM 30 MG/0.3 ML SYG SUBCU SCH (21:00)
[2018-11-04] MEDS: methylPREDNISolone SODIUM SUC 125 MG/2 ML VIAL IV SCH (22:00)
[2018-11-05] MEDS: DOXYCYCLINE HYCLATE IV 100 MG in SODIUM CHLORIDE 0.9% 250ML 250 ML IVPB SCH ×2 (04:04→15:24)
[2018-11-05] MEDS: methylPREDNISolone SODIUM SUC 125 MG/2 ML VIAL IV SCH (06:08)
[2018-11-05] MEDS: PANTOPRAZOLE SODIUM TAB 40 MG PO SCH (06:09)
--- NOTE | 2018-11-05 07:38 | RAD ---
EXAM DESCRIPTION: Chest,2 Views CLINICAL HISTORY: Pneumonia COMPARISON: Chest x-ray dated January 31, 2016. Chest x-ray dated November 04, 2018. FINDINGS: 2 views of the thorax. Chronic lingular left upper lobe airspace opacity dating back to 2015 most consistent with scar tissue and/or chronic atypical infection such as mycobacterium avium complex. Hyperexpanded lungs suggesting COPD. Ectatic thoracic aorta commonly associated with chronic hypertension. Heart size is normal. No pneumothorax is present. No acute bony pathology. IMPRESSION: No new/acute cardiopulmonary disease. Chronic findings described above. Electronically signed by: Jamie Valderrama MD 11/05/2018 7:36 AM CDT
[2018-11-05] MEDS: IPRATROPIUM/ALBUTEROL 3 ML VIAL INH SCH ×4 (08:29→19:54)
[2018-11-05] MEDS: BUDESONIDE NEBS 0.5 MG/2 ML INH NEB SCH ×2 (10:45→19:54)
[2018-11-05] MEDS: ARFORMOTEROL TARTRATE 15 MCG/2 ML NEB NEB SCH ×2 (10:45→19:54)
[2018-11-05] MEDS: FINASTERIDE 5 MG TAB PO SCH (10:48)
[2018-11-05] MEDS: LEVOTHYROXINE SODIUM 0.075 MG TAB PO SCH (10:48)
[2018-11-05] MEDS: TAMSULOSIN 0.4 MG CAP PO SCH ×2 (10:48→20:36)
[2018-11-05] MEDS: METOPROLOL TARTRATE 50 MG TAB PO SCH ×2 (10:48→20:36)
[2018-11-05] MEDS: SODIUM CHLORIDE 0.9% (FLUSH) 10 ML SYG IV SCH ×2 (10:59→20:36)
[2018-11-05] MEDS: LEVOTHYROXINE SODIUM 0.1 MG TAB PO SCH (11:02)
[2018-11-05] MEDS: methylPREDNISolone SODIUM SUC 40 MG/ML VIAL IV SCH ×2 (13:52→22:23)
--- NOTE | 2018-11-05 13:53 | PN ---
SUPERVISING PHYSICIAN: Ramiro Asher MD DATE: 11/05/18 SUBJECTIVE: The patient is sitting up in his bed. He says he feels much better and he is breathing easier. He denies chest pain, shortness of breath other than with exertion, nausea, vomiting, diarrhea. He is concerned because he does not have any battery for his hearing aids and has a difficult time hearing. OBJECTIVE: VITAL SIGNS: Temperature 98.5. Heart rate 80. Blood pressure 137/63. Respiratory rate 24. O2 saturation 94% on 2 liters nasal cannula. RESPIRATORY: Diminished breath sounds at the bases with some scattered rhonchi and very mild expiratory wheezing. CARDIAC: Regular rate and rhythm. GASTROINTESTINAL: Abdomen is soft, nondistended, nontender. Bowel sounds are positive. NEUROLOGIC: Awake, alert and oriented times three. LABORATORY: WBCs 14,500, hemoglobin 12.7, hematocrit 38.8. He does have a left shift on differential. Electrolytes are basically within normal limits. BUN 41, creatinine 1.52. Followup CK-MB was 11 and 6 hours later was 10.1. Troponin at 7:30 yesterday was 0.08, at 1:30 AM it was 0.07. Preliminary blood cultures show no growth to date. Chest x-ray shows no new/acute cardiopulmonary disease and chronic findings of emphysematous lung. All other labs and films have been reviewed via the EMR. ASSESSMENT: 1. Acute exacerbation of chronic obstructive pulmonary disease in a patient that quit smoking about 4-1/2 years ago, but is still subjected to secondhand smoke on a daily basis. 2. Acute on chronic renal failure. His creatinine on admission was 1.56. His baseline creatinine is about 1 to 1.1. 3. Benign prostatic hypertrophy. 4. Hypertension on medications. 5. Hypothyroidism presently on no supplementation. 6. Coronary artery disease. He did have an abnormal stress test a month or so ago and was to have a left heart cath, but was unable to do it due to his renal function and is awaiting that procedure at this time. 7. History of chronic tobacco abuse. Again, he stopped smoking about 4-1/2 years ago but is exposed on a daily basis to secondhand smoke. PLAN: We will continue present supportive care. I have ordered an echocardiogram as he continues to wait for a stent placement and has been unable to get his stents due to his kidney function as well as his breathing issues. He had some elevated blood pressures yesterday and I increased his metoprolol tartrate to b.i.d. dosing. I have decreased his Solu-Medrol to a taper. We will continue on p.o. prednisone tomorrow. He may need to go home on a chronic low dose of prednisone as he was on prednisone and had an exacerbation that brought him into the Emergency Room. I have ordered some labs for in the morning. I have held on any x-rays at this time. We will continue to monitor the patient closely and follow as needed. #[id number] [facility]
[2018-11-05] MEDS ORDERED: SODIUM CHLORIDE 0.9% 250ML 250 ML ONE ×2 (15:21→19:12)
[2018-11-05] MEDS ORDERED: DOXYCYCLINE HYCLATE IV 100 MG VIAL IVPB ONE ×2 (15:21→19:14)
[2018-11-05] MEDS ORDERED: traMADol HCL 50 MG TAB PO PRN (15:28)
[2018-11-05] MEDS ORDERED: ENOXAPARIN SODIUM 30 MG/0.3 ML SYG SUBCU SCH (18:00)
[2018-11-05] MEDS ORDERED: ENOXAPARIN SODIUM 40 MG/0.4 ML SYG SUBCU ONE (20:41)
[2018-11-05] MEDS ORDERED: SIMVASTATIN 20 MG TAB PO SCH (21:00)
[2018-11-06] MEDS: DOXYCYCLINE HYCLATE IV 100 MG in SODIUM CHLORIDE 0.9% 250ML 250 ML IVPB SCH (04:05)
[2018-11-06] MEDS: methylPREDNISolone SODIUM SUC 40 MG/ML VIAL IV SCH (05:26)
[2018-11-06] MEDS: LEVOTHYROXINE SODIUM 0.1 MG TAB PO SCH (05:26)
[2018-11-06] MEDS: LEVOTHYROXINE SODIUM 0.075 MG TAB PO SCH (05:26)
[2018-11-06] MEDS: PANTOPRAZOLE SODIUM TAB 40 MG PO SCH (05:26)
[2018-11-06 05:33] VITALS: O2SAT 95
[2018-11-06] MEDS: ARFORMOTEROL TARTRATE 15 MCG/2 ML NEB NEB SCH (08:40)
[2018-11-06] MEDS: BUDESONIDE NEBS 0.5 MG/2 ML INH NEB SCH (08:40)
[2018-11-06] MEDS: IPRATROPIUM/ALBUTEROL 3 ML VIAL INH SCH (08:40)
[2018-11-06] MEDS: TAMSULOSIN 0.4 MG CAP PO SCH (09:43)
[2018-11-06] MEDS: FINASTERIDE 5 MG TAB PO SCH (09:43)
[2018-11-06] MEDS: SODIUM CHLORIDE 0.9% (FLUSH) 10 ML SYG IV SCH (09:43)
[2018-11-06] MEDS: METOPROLOL TARTRATE 50 MG TAB PO SCH (09:43)
[2018-11-06 12:18] VITALS: BP 135/84; TEMP 98
[2018-11-06] MEDS ORDERED: INFLUENZA VIRUS VACC (ADULT) 0.5 ML SYG IM ONE (12:26)
--- NOTE | 2018-11-25 09:02 | DS ---
SUPERVISING PHYSICIAN: Ramiro Asher MD ADMISSION DIAGNOSIS: 1. Acute exacerbation of chronic obstructive pulmonary disease in a patient that quit smoking about 4-1/2 years ago but is still subjected to secondhand smoke on a daily basis. 2. Acute on chronic renal failure. His creatinine on admission was 1.56. His baseline creatinine is about 1 to 1.1. 3. Benign prostatic hypertrophy. 4. Hypertension on medications. 5. Hypothyroidism presently on no supplementation. 6. Coronary artery disease. He did have an abnormal stress test a month or so ago and was to have a left heart cath, but was unable to do it due to his renal function and is awaiting that procedure at this time. 7. History of chronic tobacco abuse. Again, he stopped smoking about 4-1/2 years ago but is exposed on a daily basis to second hand smoke. DISCHARGE DIAGNOSIS: 1. Acute exacerbation of chronic obstructive pulmonary disease in a patient that has a history of smoking, but quit 4-1/2 years ago and continues to be exposed to secondhand smoke, showing good response to treatment. 2. Acute on chronic renal failure with creatinine returning to baseline levels with treatment. 3. Benign prostatic hypertrophy, no complications. 4. Hypertension on medications, stable. 5. Hypothyroidism, presently on no supplementation. 6. Coronary artery disease with a history of abnormal stress test, waiting left heart catheterization due to poor renal function. 7. History of chronic tobacco abuse having stopped smoking about 4-1/2 years previous, but exposed to continued secondhand smoke. REASON FOR HOSPITALIZATION: This is a 78 year-old male patient who has had increasing shortness of breath over the last 24 hours. It was much worse this morning when he woke up. He was discharged from the hospital about a week or so ago on steroids and antibiotics. He also had acute on chronic renal failure as well as an exacerbation of chronic obstructive pulmonary disease at that time. He is still taking his prednisone taper. Today when he came to the Emergency Room he also had some chest pain that radiated through to the back. It also went down his left shoulder and up the back of his neck. It was mostly with breathing and it has just stopped since he was in the Emergency Room. He does have a significant history of COPD and he uses chronic oxygen at home at 2 to 3 liters. He still is exposed to second hand smoke from his . He did quit smoking about 4-1/2 years ago. She continues to smoke. He always has some mild dyspnea but he does not have chest pain and the dyspnea has worsened over the last 24 hours. In the Emergency Room, his initial vital signs showed a temperature of 96.9, blood pressure 121/73, respiratory rate 24, O2 sat 85% on 2 liters. With rest and a breathing treatment it went up to 91%. His lab work showed WBC 12,300 with hemoglobin 13.7, hematocrit 42. He did have a left shift on his differential. Coagulation studies were unremarkable. Electrolytes are basically within normal limits. BUN 37, creatinine 1.56, baseline creatinine is around 1 to 1.1. Glucose 177. Alkaline phosphatase 36. CK-MB 11.2, troponin 0.09. His followup troponin was 0.08. BNP was slightly elevated at 278. Blood cultures were drawn. Chest x-ray was done that showed stably enlarged cardiac silhouette, partially calcified aorta with scattered basilar atelectasis without lobar or mass-like consolidation. The lungs appear emphysematous with no pleural effusions or pneumothorax. Thoracic spondylosis. He was given a dose of Solu-Medrol as well as given several breathing treatments. He was also given a baby aspirin. The patient was admitted in stable condition. LABORATORY: White count on admission was 12,300, hemoglobin 13.7, hematocrit 42.0. Discharge white count was 15,800 with the patient having been started on steroids. Left shift was present. Hemoglobin and hematocrit were stable at 12.0 and 37.3, respectively, at discharge with platelet count 118,000. Coagulation studies showed normal PT, PT-T. Chemistries on admission showed normal electrolytes as well as at discharge. Initial creatinine was 1.56 and at discharge was 1.61. Liver functions all within normal limits. Hie dd have elevated troponins of 0.08 with BNP elevated at 278. MICROBIOLOGY: Blood cultures were negative after 5 days. RADIOLOGY: He had a chest x-ray in the Emergency Room and per radiologic interpretation showed stable enlarged cardiac silhouette, partially calcified aorta with scattered basilar atelectasis without lobar or masslike consolidation. Lungs appear emphysematous. He had an echocardiogram on admission and per Dr. June, there is normal left ventricular size and systolic function with estimated ejection fraction 60% with regional wall motion abnormality, normal right ventricular size and systolic function. There is a trace of mitral and tricuspid regurgitation noted. The aortic root was borderline enlarged at 4.1 cm with a small pericardial effusion noted without any obvious hemodynamic significance. There was no left ventricular thrombus noted. EKG 12-lead showed a normal sinus rhythm without ST or T-wave changes indicating ischemia or acute injury pattern. No comparisons were noted. He had a repeat chest x-ray while in the hospital and per radiologic interpretation on the day prior to discharge, two-view chest, showed no acute cardiopulmonary disease or chronic findings. Please see those results for details. HOSPITAL COURSE: Mr. Graham was admitted for exacerbation of his chronic obstructive pulmonary disease and congestive heart failure. He was started on antibiotic coverage with doxycycline. He was on aggressive pulmonary hygiene and started on steroids. He was showing good response to treatment. It was felt he had improved well enough to continue with outpatient management. DISCHARGE PHYSICAL ASSESSMENT: VITAL SIGNS: Temperature 98. Pulse 75. Blood pressure 135/84. Respirations 18. Saturation 95% on 2 liters nasal cannula. GENERAL: The patient appeared to be resting comfortably without any acute distress. CHEST: Lung sounds diminished towards the bases with no obvious wheezing or rales. HEART: Regular rate and rhythm. ABDOMEN: Obese, but soft, nontender, positive bowel sounds. EXTREMITIES: Without edema. NEUROLOGIC: Alert and oriented x3. PLAN: Mr. Graham was discharged0 on 11/06/18. He is to followup with his primary care provider, Dr. Asher, following discharge. He also needs to see Dr. Wallis to have a heart catheterization done, which will be arranged by Dr. Asher. He was to resume his home medications as instructed. He was told to return to the hospital should he have any worsening or concerning symptoms. Diet at discharge was low-fat diet. No strenuous activities until cleared by Cardiology. PRESCRIPTIONS AT DISCHARGE: 1. Prednisone taper 10 mg tablet over 12 days, no refills. 2. Cefdinir for continued antibiotic coverage for 7 days, 300 mg twice daily. All other medications were continued. DISPOSITION: The patient was discharged home. CONDITION ON DISCHARGE: Stable and improved. [facility][id number] [facility]
== END 2018-11-06 12:42 | disposition home or self-care (01) | DRG 191 ==
LOC: ER 09:53 → OBSVTOIN 14:30 → MS 14:30
PROVIDERS: ADMIT Nurse Practitioner Acute Care; ATTEND Nurse Practitioner Family
DX: J44.1 Chronic obstructive pulmonary disease with (acute) exacerbation (principal); N17.9 Acute kidney failure, unspecified; N40.0 Benign prostatic hyperplasia without lower urinary tract symptoms; E78.5 Hyperlipidemia, unspecified; I12.9 Hypertensive chronic kidney disease with stage 1 through stage 4 chronic kidney disease, or unspecified chronic kidney disease; N18.9 Chronic kidney disease, unspecified; I25.10 Atherosclerotic heart disease of native coronary artery without angina pectoris; E03.9 Hypothyroidism, unspecified; H91.90 Unspecified hearing loss, unspecified ear; Z77.22 Contact with and (suspected) exposure to environmental tobacco smoke (acute) (chronic); Z99.81 Dependence on supplemental oxygen; Z87.891 Personal history of nicotine dependence; Z95.1 Presence of aortocoronary bypass graft; Z88.2 Allergy status to sulfonamides; Z88.5 Allergy status to narcotic agent; Z79.52 Long term (current) use of systemic steroids; Z79.899 Other long term (current) drug therapy

== ENCOUNTER 2018-12-19 16:24 | Emergency (ER) | payer MEDICARE, OTHER ==
[2018-12-19] MEDS ORDERED: methylPREDNISolone SODIUM SUC 125 MG/2 ML VIAL IV ONE (16:47)
[2018-12-19] MEDS ORDERED: cefTRIAXone SODIUM 1 GM in SODIUM CHL 0.9% 50ML MIN-BAG+ 50 ML IVPB ONE (16:47)
--- NOTE | 2018-12-19 16:47 | ED.PDOC ---
History of Present Illness - General Chief Complaint: Respiratory Problem Stated Complaint: shortness of breath Time Seen by Provider: 12/19/18 16:44 - History of Present Illness Initial Comments: Pt poor historian at this time related to shortness of breath and fatigue. All history being provided by . His says his SOB started this morning, but worsened through the day. Pt was reportedly recently d/c from [facility]? for "heart issues." brought d/c paperwork that shows he had 100% LAD obstruction but they were told it was not amenable to stent placement. She thinks there may have been some mention of a bypass at some point. She also said he had some kidney failure issues recently as well. EMS says he's on 4L N/C on home. When he was found, his O2 sat ~40% (unknown if on RA or Oxygen) Timing/Duration: 7-24 hours Severity: severe Activities at Onset: none Worsening Factors: other - exertion Allergies/Adverse Reactions: Allergies Hydromorphone [From Dilaudid] Allergy (Severe, Verified 10/23/18 19:58) sob Sulfa Antibiotics Allergy (Intermediate, Verified 10/23/18 19:58) Rash itching Home Medications: Ambulatory Orders Levothyroxine Sodium [Synthroid] 175 mcg PO DAILY 01/17/15 Simvastatin 40 mg PO BEDTIME 01/17/15 Tamsulosin HCl [Flomax] 0.4 mg PO BID 01/17/15 Arformoterol Tartrate [Brovana] 15 mcg INH BID 04/13/15 Metoprolol Tartrate 50 mg PO DAILY 05/02/16 Finasteride [Proscar] 5 mg PO DAILY 01/04/17 Budesonide (Inhalation) [Budesonide] 1 mg IN BID 10/23/18 Ipratropium Liberty Hfa [Atrovent Hfa] 17 mcg INH QID 10/23/18 predniSONE [Prednisone] See Taper PO DAILY #30 tab 11/06/18 Review of Systems - Review of Systems Constitutional: States: malaise, weakness EENTM: States: no symptoms reported Respiratory: States: short of breath, wheezing Cardiology: States: no symptoms reported Gastrointestinal/Abdominal: States: no symptoms reported Genitourinary: States: no symptoms reported Musculoskeletal: States: no symptoms reported Skin: States: no symptoms reported Neurological: States: no symptoms reported Endocrine: States: no symptoms reported Past Medical History (General) - Patient Medical History Hx Seizures: No Hx Stroke: No Hx Dementia: Yes - forgetful Hx Asthma: No Hx of COPD: Yes Hx Cardiac Disorders: Yes Hx Congestive Heart Failure: No Hx Pacemaker: No Hx Hypertension: No Hx Thyroid Disease: Yes Hx Diabetes: No Hx Gastroesophageal Reflux: No Hx Renal Disease: Yes Hx Cancer: No Hx of HIV: No Hx Hepatitis C: No Hx MRSA: No MRSA Source:: Blood - Vaccination History Hx Tetanus, Diphtheria Vaccination: Yes Hx Influenza Vaccination: Yes Hx Pneumococcal Vaccination: Yes - Social History Hx Tobacco Use: Yes Hx Chewing Tobacco Use: No Hx Alcohol Use: No Hx Substance Use: No Hx Substance Use Treatment: No Hx Depression: No Hx Physical Abuse: No Hx Emotional Abuse: No Hx Suspected Abuse: No - Female History Patient : No Family Medical History - Family History Father Family History: Unknown Living Status: Physical Exam - Physical Exam General Appearance: Lethargic, Obvious distress, Ill Appearing Eyes, Ears, Nose, Throat Exam: normal ENT inspection Neck: non-tender, full range of motion Respiratory: respiratory distress, decreased breath sounds, accessory muscle use, crackles, rales, wheezing Cardiovascular/Chest: regular rate, rhythm Gastrointestinal/Abdominal: normal bowel sounds Extremity: pedal edema Neurologic: other - GCS 14, awakens to stimulation that nods off Skin Exam: normal color Progress - Progress Progress: 12/19/18 17:59 Pt now in less resp distress on BiPAP. Last SBP 101. O2 sat 100%, RR 25. Pt's level of alertness unchanged, still responding. - Results/Orders Results/Orders: Laboratory Tests 12/19/18 12/19/18 12/19/18 17:00 17:10 17:10 WBC 8.7 RBC 4.01 L Hgb 11.5 L Hct 36.2 L MCV 90.2 MCH 28.6 MCHC 31.7 L RDW 16.3 H Plt Count 172 MPV 7.8 Absolute Neuts (auto) 7.50 H Absolute Lymphs (auto) 0.60 L Absolute Monos (auto) 0.50 Absolute Eos (auto) 0.00 Absolute Basos (auto) 0.00 Neutrophils % 86.5 H Lymphocytes % 7.0 L Monocytes % 5.7 Eosinophils % 0.3 L Basophils % 0.5 D-Dimer, Quantitative pCO2 78 H pO2 189 H* HCO3 33.1 ABG pH 7.250 L* ABG O2 Saturation 100.0 H ABG Base Excess 4.1 ABG Deoxyhemoglobin 0.0 Oxyhemoglobin % 97.5 Carboxyhemoglobin % 0.2 L Methemoglobin % Sat 2.2 H Calc Total Hemoglobin 11.6 L Sodium Potassium Chloride Carbon Dioxide Anion Gap BUN Creatinine BUN/Creatinine Ratio Random Glucose Serum Osmolality Lactic Acid 1.1 Calcium Total Bilirubin AST ALT Alkaline Phosphatase Troponin I B-Natriuretic Peptide Serum Total Protein Albumin Globulin Albumin/Globulin Ratio Urine Color Urine Appearance Urine pH Ur Specific [place] Urine Protein Urine Glucose (UA) Urine Ketones Urine Blood Urine Nitrite Urine Bilirubin Urine Urobilinogen Ur Leukocyte Esterase Urine RBC Urine WBC Ur Epithelial Cells Urine Bacteria 12/19/18 12/19/18 12/19/18 17:10 17:10 17:10 WBC RBC Hgb Hct MCV MCH MCHC RDW Plt Count MPV Absolute Neuts (auto) Absolute Lymphs (auto) Absolute Monos (auto) Absolute Eos (auto) Absolute Basos (auto) Neutrophils % Lymphocytes % Monocytes % Eosinophils % Basophils % D-Dimer, Quantitative 4.28 H* pCO2 pO2 HCO3 ABG pH ABG O2 Saturation ABG Base Excess ABG Deoxyhemoglobin Oxyhemoglobin % Carboxyhemoglobin % Methemoglobin % Sat Calc Total Hemoglobin Sodium 145 Potassium 4.7 Chloride 104 Carbon Dioxide 31 Anion Gap 14.7 BUN 20 H Creatinine 1.59 H BUN/Creatinine Ratio 12.6 Random Glucose 132 H Serum Osmolality 293.2 Lactic Acid Calcium 8.7 Total Bilirubin 0.2 AST 18 ALT 12 Alkaline Phosphatase 46 Troponin I 0.21 H* B-Natriuretic Peptide 117.0 H Serum Total Protein 6.5 Albumin 3.9 Globulin 2.6 Albumin/Globulin Ratio 1.5 Urine Color Urine Appearance Urine pH Ur Specific [place] Urine Protein Urine Glucose (UA) Urine Ketones Urine Blood Urine Nitrite Urine Bilirubin Urine Urobilinogen Ur Leukocyte Esterase Urine RBC Urine WBC Ur Epithelial Cells Urine Bacteria 12/19/18 12/19/18 17:49 18:54 WBC RBC Hgb Hct MCV MCH MCHC RDW Plt Count MPV Absolute Neuts (auto) Absolute Lymphs (auto) Absolute Monos (auto) Absolute Eos (auto) Absolute Basos (auto) Neutrophils % Lymphocytes % Monocytes % Eosinophils % Basophils % D-Dimer, Quantitative pCO2 63 H pO2 145 H* HCO3 31.0 ABG pH 7.310 L ABG O2 Saturation 99.8 H ABG Base Excess 3.9 ABG Deoxyhemoglobin 0.2 Oxyhemoglobin % 97.5 Carboxyhemoglobin % 0.2 L Methemoglobin % Sat 2.2 H Calc Total Hemoglobin 10.6 L Sodium Potassium Chloride Carbon Dioxide Anion Gap BUN Creatinine BUN/Creatinine Ratio Random Glucose Serum Osmolality Lactic Acid Calcium Total Bilirubin AST ALT Alkaline Phosphatase Troponin I B-Natriuretic Peptide Serum Total Protein Albumin Globulin Albumin/Globulin Ratio Urine Color Yellow Urine Appearance Turbid Urine pH 5.0 Ur Specific [place] >= 1.030 Urine Protein 100 H Urine Glucose (UA) Negative Urine Ketones Negative Urine Blood Small H Urine Nitrite Negative Urine Bilirubin Negative Urine Urobilinogen 0.2 Ur Leukocyte Esterase Moderate H Urine RBC Obscured by wbc's H Urine WBC Tntc H Ur Epithelial Cells Obscured by wbc's Urine Bacteria Obscured by wbc's H EXAM DESCRIPTION: Chest,1 View CLINICAL HISTORY: 78 years Male, SOB COMPARISON: Previous study November 05, 2018 TECHNIQUE: AP portable chest. FINDINGS: Heart size is large with prominent central pulmonary vascularity. No consolidating infiltrate. No pulmonary mass or worrisome nodule. No pneumothorax or pleural effusion. Bones are unremarkable. IMPRESSION: Large heart without congestive failure. Electronically signed by: Jose L Alejandre MD 12/19/2018 5:03 PM CDT - EKG/XRAY/CT EKG: Sinus, Tachy, nonspecific ST T wave Chg Comments: Rate 105. Incomp RBBB. LAFB. No acute ST elevations XRAY: chest Xray Comments: No infiltrate/effusion. No PTX. Nonacute. Departure - Departure Clinical Impression: Acute respiratory failure with hypoxia and hypercapnia, COPD with exacerbation, Dehydration, Oxygen dependent, Elevated troponin, Acute cystitis Sepsis Qualifiers: Sepsis type: sepsis due to unspecified organism Sepsis acute organ dysfunction status: unspecified Qualified Code(s): A41.9 - Sepsis, unspecified organism Chronic kidney failure Qualifiers: Chronic kidney disease stage: unspecified stage Qualified Code(s): N18.9 - Chronic kidney disease, unspecified Time of Disposition: 18:45 Disposition: Transfer to Hospital Condition: Serious Health Concerns: Pt stable for transport Departure Forms: ED Discharge - Pt. Copy, Patient Portal Self Enrollment Referrals: DIAMOND RIVERA MD [Primary Care Provider] - 1-2 Weeks Home Medications: Ambulatory Orders Levothyroxine Sodium [Synthroid] 175 mcg PO DAILY 01/17/15 Simvastatin 40 mg PO BEDTIME 01/17/15 Tamsulosin HCl [Flomax] 0.4 mg PO BID 01/17/15 Arformoterol Tartrate [Brovana] 15 mcg INH BID 04/13/15 Metoprolol Tartrate 50 mg PO DAILY 05/02/16 Finasteride [Proscar] 5 mg PO DAILY 01/04/17 Budesonide (Inhalation) [Budesonide] 1 mg IN BID 10/23/18 Ipratropium Liberty Hfa [Atrovent Hfa] 17 mcg INH QID 10/23/18 predniSONE [Prednisone] See Taper PO DAILY #30 tab 11/06/18 Critical Care Note - Critical Care Note Total Time (mins): 35 Comments: Multiple assessments, reviewing vitals, reviewing response to treatments, abnormal vitals Transfer to Outside Facility - Transfer Information Accepting Provider:: elvis alicea Accepting Facility: [facility] Reason for Transfer: required specialist not available
[2018-12-19] MEDS ORDERED: AZITHROMYCIN IV 500 MG in SODIUM CHLORIDE 0.9% 250ML 250 ML IVPB ONE (16:56)
[2018-12-19] MEDS ORDERED: SODIUM CHLORIDE 0.9% 1000ML 1,000 ML IVS ONE (17:02)
--- NOTE | 2018-12-19 17:07 | RAD ---
EXAM DESCRIPTION: Chest,1 View CLINICAL HISTORY: 78 years Male, SOB COMPARISON: Previous study November 05, 2018 TECHNIQUE: AP portable chest. FINDINGS: Heart size is large with prominent central pulmonary vascularity. No consolidating infiltrate. No pulmonary mass or worrisome nodule. No pneumothorax or pleural effusion. Bones are unremarkable. IMPRESSION: Large heart without congestive failure. Electronically signed by: Jose L Alejandre MD 12/19/2018 5:03 PM CDT
[2018-12-19] MEDS ORDERED: cefTRIAXone SODIUM 1 GM VIAL ONE (17:09)
[2018-12-19] MEDS ORDERED: SODIUM CHL 0.9% 50ML MIN-BAG+ 50 ML IVPB ONE (17:10)
[2018-12-19] MEDS ORDERED: SODIUM CHLORIDE 0.9% 250ML 250 ML ONE ×2 (17:44→17:46)
[2018-12-19] MEDS ORDERED: AZITHROMYCIN IV 500 MG VIAL IVPB ONE (17:44)
[2018-12-19] MEDS ORDERED: SODIUM CHLORIDE 0.9% 1000ML 1,500 ML IVS ONE (18:28)
[2018-12-19 19:38] VITALS: TEMP 99.3
[2018-12-19 20:42] VITALS: BP 103/54; O2SAT 96
== END 2018-12-19 20:41 | disposition short-term general hospital (02) ==
LOC: ER 16:24
DX: J96.01 Acute respiratory failure with hypoxia (principal); J96.02 Acute respiratory failure with hypercapnia; A41.9 Sepsis, unspecified organism; J44.1 Chronic obstructive pulmonary disease with (acute) exacerbation; N30.00 Acute cystitis without hematuria; E86.0 Dehydration; R79.89 Other specified abnormal findings of blood chemistry; N18.9 Chronic kidney disease, unspecified; I45.10 Unspecified right bundle-branch block; I44.4 Left anterior fascicular block; R00.0 Tachycardia, unspecified; F03.90 Unspecified dementia, unspecified severity, without behavioral disturbance, psychotic disturbance, mood disturbance, and anxiety; I51.9 Heart disease, unspecified; E07.9 Disorder of thyroid, unspecified; Z79.899 Other long term (current) drug therapy; Z88.5 Allergy status to narcotic agent; Z88.2 Allergy status to sulfonamides; Z99.81 Dependence on supplemental oxygen
CPT/HCPCS: 36415; 36600; 71045; 80053; 81001; 82803; 82805; 83605; 83880; 84484; 85025; 85379; 87040; 87086; 94660; J0456; J0696; J2930; J7030; J7050

== ENCOUNTER 2018-12-25 15:48 | Inpatient (IN) | payer MEDICARE, OTHER ==
[2018-12-25] MEDS ORDERED: IPRATROPIUM/ALBUTEROL 3 ML VIAL NEB ONE (15:53)
--- NOTE | 2018-12-25 16:15 | RAD ---
EXAM DESCRIPTION: Chest,1 View CLINICAL HISTORY: 78 years Male, shortness of breath COMPARISON: 12/18/2018. TECHNIQUE: AP radiograph of the chest was obtained. FINDINGS: Trachea is midline.The cardiomediastinal silhouette is mildly enlarged in size. The pulmonary vasculature is within normal limits. Right perihilar airspace opacities are identified.No evidence of pleural effusions. IMPRESSION: Right perihilar airspace opacities. Mild enlarged cardiac silhouette. Electronically signed by: Iris Garnica MD 12/25/2018 4:14 PM CDT
[2018-12-25] MEDS ORDERED: methylPREDNISolone SODIUM SUC 40 MG/ML VIAL IV ONE (17:05)
[2018-12-25] MEDS ORDERED: FUROSEMIDE INJ 40 MG/4 ML VIAL IV ONE (17:05)
[2018-12-25] MEDS ORDERED: ALBUTEROL SULFATE 2.5 MG/3 ML VIAL NEB ONE (18:18)
--- NOTE | 2018-12-25 18:30 | ED.PDOC ---
History of Present Illness - General Chief Complaint: Respiratory Problem Stated Complaint: shortness of breath Time Seen by Provider: 12/25/18 15:53 Source: patient, family Exam Limitations: clinical condition - History of Present Illness Initial Comments: the patient is a 78-year-old male sent over from clinic secondary to respiratory distress and respiratory failure. The patient does have known COPD along with obstructive sleep apnea and coronary artery disease which they have not been able to correct. he does have known CHF as well. The patient was recently on [facility] up until several days ago when he was let go. They did attempt a coronary artery catheterization at that time. He apparently does have 100% stenosed LAD which they were not able to revascularize, but does have some bypasses/collaterals in place. They apparently want to do another bypass surgery on the patient, however he is not currently in good enough shape to tolerate that. The patient started having some increasing shortness of breath again yesterday along with some increased swelling yesterday. He has also apparently not been doing his breathing treatments and had not taken his Lasix either. No fevers. No productive cough. No chest pain. The patient was initially pale, hypoxic and in obvious respiratory distress upon arrival here at the emergency room. Initial oxygen saturations off of oxygen were down in the 50s. He does normally wear oxygen at 3 L by nasal cannula when he is awake and does do BiPAP at night. There is some question of compliance on his BiPAP last night. Oxygen saturations at his primary care doctor's office just before coming over were down in the 60s as well. The patient has marked nasal flaring and increased work of breathing. He is confused. He is moving so little air that I cannot even hear breath sounds. most information initially comes from his . After about 15 minutes on a nonrebreather, the patient the patient is mentating better. After 3 DuoNeb treatments the patient is breathing easier and I can hear breath sounds. Color has improved.he does have some edema and all 4 extremities which his reports is worse today than yesterday. Timing/Duration: 24 hours Severity: severe Improving Factors: medication Worsening Factors: nothing Associated Symptoms: diaphoresis, malaise, shortness of breath Allergies/Adverse Reactions: Allergies Hydromorphone [From Dilaudid] Allergy (Severe, Verified 10/23/18 19:58) sob Sulfa Antibiotics Allergy (Intermediate, Verified 10/23/18 19:58) Rash itching Home Medications: Ambulatory Orders Tamsulosin HCl [Flomax] 0.4 mg PO BID 01/17/15 Arformoterol Tartrate [Brovana] 15 mcg INH BID 04/13/15 Metoprolol Tartrate 50 mg PO DAILY 05/02/16 Finasteride [Proscar] 5 mg PO DAILY 01/04/17 Budesonide (Inhalation) [Budesonide] 1 mg IN BID 10/23/18 Acetaminophen [Tylenol] 650 mg PO Q4H PRN 12/25/18 Aspirin 325 mg PO DAILY 12/25/18 Ciprofloxacin HCl (Ophth) [Ciprofloxacin HCl] 1 drop LEFT_EYE QID PRN 12/25/18 Furosemide [Lasix] 20 mg PO DAILY 12/25/18 Ipratropium/Albuterol [Duoneb] 3 ml NEB TID 12/25/18 Isosorbide Mononitrate [Imdur] 30 mg PO DAILY 12/25/18 Levothyroxine Sodium 175 mcg PO DAILY 12/25/18 Niacin [Niacin ER] 500 mg PO BID 12/25/18 Polyvinyl Alcohol [Artificial Tears] 1 drop OP QID PRN 12/25/18 Pravastatin Sodium 80 mg PO BEDTIME 12/25/18 Review of Systems - Review of Systems Constitutional: States: diaphoresis, malaise, weakness EENTM: States: no symptoms reported Respiratory: States: short of breath, wheezing Cardiology: States: edema Gastrointestinal/Abdominal: States: no symptoms reported Genitourinary: States: no symptoms reported Musculoskeletal: States: no symptoms reported Skin: States: see HPI Neurological: States: see HPI Endocrine: States: excessive sweating All other Systems: No Change from Baseline Past Medical History (General) - Patient Medical History Hx Seizures: No Hx Stroke: No Hx Dementia: Yes - forgetful Hx Asthma: No Hx of COPD: Yes Hx Cardiac Disorders: Yes Hx Congestive Heart Failure: Yes Hx Pacemaker: No Hx Hypertension: Yes Hx Thyroid Disease: Yes Hx Diabetes: No Hx Gastroesophageal Reflux: No Hx Renal Disease: Yes Hx Cancer: No Hx of HIV: No Hx Hepatitis C: No Hx MRSA: No MRSA Source:: Blood - Vaccination History Hx Tetanus, Diphtheria Vaccination: Yes Hx Influenza Vaccination: Yes Hx Pneumococcal Vaccination: Yes - Social History Hx Tobacco Use: Yes Hx Chewing Tobacco Use: No Hx Alcohol Use: No Hx Substance Use: No Hx Substance Use Treatment: No Hx Depression: No Hx Physical Abuse: No Hx Emotional Abuse: No Hx Suspected Abuse: No - Female History Patient : No Family Medical History - Family History Father Family History: Unknown Living Status: Physical Exam - Physical Exam General Appearance: Obvious distress, Ill Appearing, Other - the patient is initially significantly confused. Ears, Nose, Throat: normal pharynx, other - chronic decreased hearing Neck: full range of motion, supple Respiratory: respiratory distress, decreased breath sounds, accessory muscle use, other - markedly decreased breath sounds Cardiovascular/Chest: normal peripheral pulses, regular rate, rhythm - currently regular rate and rhythm, other - edema in all 4 extremities Peripheral Pulses: radial,right: 2+, radial,left: 2+ Gastrointestinal/Abdominal: non tender - obese, soft Rectal Exam: deferred Back Exam: no CVA tenderness, no vertebral tenderness Extremity: normal range of motion, normal capillary refill, pedal edema Neurologic: other - the patient is initially disoriented and drowsy. This does improve after options supplementation after which he isalert and oriented 4. Skin Exam: diaphoresis, pallor Comments: Vital Signs - 24 hr 12/25/18 12/25/18 12/25/18 15:55 16:10 16:22 Temperature 99 F Pulse Rate 80 Pulse Rate [ 81 81 Left Brachial] Respiratory 40 H 23 40 H Rate Blood Pressure 155/84 [Left Arm] O2 Sat by Pulse 54 L 99 Oximetry 12/25/18 12/25/18 12/25/18 16:38 16:41 17:17 Temperature Pulse Rate Pulse Rate [ 80 Left Brachial] Respiratory 20 28 H Rate Blood Pressure 126/70 [Left Arm] O2 Sat by Pulse 98 94 L Oximetry Progress - Progress Progress: 12/25/18 18:34 the patient is a 78-year-old male presenting with respiratory failure and complications thereof. This is most likely due to inadequately treated COPD that is triggered a CHF exacerbation as well. He is receiving IV Lasix. He has received IV Solu-Medrol. He has received multiple breathing treatments along with high flow supplemental oxygen and BiPAP. He is doing much better at this point. oxygen concentration has been able to be weaned down significantly. Hypoxic encephalopathy has resolved and he is mentating well. Breath sounds are improving. He does have a mild troponin elevation that is likely due to global hypoxia. he has no chest pain. EKG is reassuring. He had this as well at his last encounter. He is not amenable to any further cardiology intervention at this time until his general condition improves or he could tolerate a bypass surgery. continue aspirin. Continue home medications otherwise for chronic medical problems. The patient will need frequent nebulizer treatments overnight. He does have significant CO2 retention. The ABG showed a PaCO2 of almost 70 and this was after about an hour and a half on BiPAP. he is a chronic CO2 retainer. We did increase his pressure and he will need another ABG later this afternoon. I would also recommend a repeat chest x-ray later this af ternoon after the patient has been BiPAPed a while, preferably a 2 view for evaluation of the right hilum. He has been taking amoxicillin for a urinary tract infection. A repeat urinalysis would be beneficial in the future. admit for continued care. Critical care time spent for respiratory failure and hypoxic encephalopathy excluding otherwise billable procedures is 45 minutes. pablo ware [phone] - Results/Orders Results/Orders: chest x-ray shows mild right perihilar changes. This is a single view x-ray. EKG shows normal sinus rhythm at 81 bpm. Normal axis. Early right bundle branch block. Poor early progression in anterior leads. Normal QT interval. No definitive ST segment or T-wave changes indicative of acute ischemia. Laboratory Results - last 24 hr 12/25/18 12/25/18 12/25/18 16:00 16:00 16:00 WBC RBC Hgb Hct MCV MCH MCHC RDW Plt Count MPV Absolute Neuts (auto) Absolute Lymphs (auto) Absolute Monos (auto) Absolute Eos (auto) Absolute Basos (auto) Neutrophils % Lymphocytes % Monocytes % Eosinophils % Basophils % PT 10.9 INR 1.09 PTT (SP) 23.4 pCO2 pO2 HCO3 ABG pH ABG O2 Saturation ABG Base Excess ABG Deoxyhemoglobin Oxyhemoglobin % Carboxyhemoglobin % Methemoglobin % Sat Calc Total Hemoglobin Sodium 142 Potassium 4.4 Chloride 98 L Carbon Dioxide 32 H Anion Gap 16.4 BUN 19 H Creatinine 1.40 H BUN/Creatinine Ratio 13.6 Random Glucose 133 H Serum Osmolality 287.3 Lactic Acid 1.0 Calcium 9.1 Magnesium 2.1 Total Bilirubin 0.8 AST 20 ALT 17 Alkaline Phosphatase 41 L Creatine Kinase 125 CK-MB (CK-2) 4.4 CK-MB (CK-2) % Not Reportable Troponin I 0.20 H* B-Natriuretic Peptide 385.0 H* Serum Total Protein 6.9 Albumin 4.1 Globulin 2.8 Albumin/Globulin Ratio 1.5 12/25/18 12/25/18 16:00 18:00 WBC 7.8 RBC 4.24 L Hgb 12.1 L Hct 37.8 L MCV 89.0 MCH 28.4 MCHC 31.9 L RDW 16.2 H Plt Count 184 MPV 7.9 Absolute Neuts (auto) 5.50 Absolute Lymphs (auto) 1.50 Absolute Monos (auto) 0.60 Absolute Eos (auto) 0.20 Absolute Basos (auto) 0.00 Neutrophils % 70.4 Lymphocytes % 18.5 L Monocytes % 8.2 Eosinophils % 2.3 Basophils % 0.6 PT INR PTT (SP) pCO2 69 H pO2 57 L HCO3 34.8 ABG pH 7.330 L ABG O2 Saturation 93.7 L ABG Base Excess 8.2 ABG Deoxyhemoglobin 6.1 H Oxyhemoglobin % 91.9 L Carboxyhemoglobin % 1.8 H Methemoglobin % Sat 0.2 Calc Total Hemoglobin 7.1 L Sodium Potassium Chloride Carbon Dioxide Anion Gap BUN Creatinine BUN/Creatinine Ratio Random Glucose Serum Osmolality Lactic Acid Calcium Magnesium Total Bilirubin AST ALT Alkaline Phosphatase Creatine Kinase CK-MB (CK-2) CK-MB (CK-2) % Troponin I B-Natriuretic Peptide Serum Total Protein Albumin Globulin Albumin/Globulin Ratio Departure - Departure Clinical Impression: Hypoxic encephalopathy, COPD exacerbation Respiratory failure with hypoxia and hypercapnia Qualifiers: Chronicity: acute on chronic Qualified Code(s): J96.21 - Acute and chronic respiratory failure with hypoxia; J96.22 - Acute and chronic respiratory failure with hypercapnia Acute exacerbation of CHF (congestive heart failure) Qualifiers: Heart failure type: combined systolic and diastolic Qualified Code(s): I50.43 - Acute on chronic combined systolic (congestive) and diastolic (congestive) heart failure Disposition: Admit Patient Condition: Poor Departure Forms: ED Discharge - Pt. Copy, Patient Portal Self Enrollment Activity: may shower, no tub bath Referrals: DIAMOND RIVERA MD [Primary Care Provider] - 1-2 Weeks Home Medications: Ambulatory Orders Tamsulosin HCl [Flomax] 0.4 mg PO BID 01/17/15 Arformoterol Tartrate [Brovana] 15 mcg INH BID 04/13/15 Metoprolol Tartrate 50 mg PO DAILY 05/02/16 Finasteride [Proscar] 5 mg PO DAILY 01/04/17 Budesonide (Inhalation) [Budesonide] 1 mg IN BID 10/23/18 Acetaminophen [Tylenol] 650 mg PO Q4H PRN 12/25/18 Aspirin 325 mg PO DAILY 12/25/18 Ciprofloxacin HCl (Ophth) [Ciprofloxacin HCl] 1 drop LEFT_EYE QID PRN 12/25/18 Furosemide [Lasix] 20 mg PO DAILY 12/25/18 Ipratropium/Albuterol [Duoneb] 3 ml NEB TID 12/25/18 Isosorbide Mononitrate [Imdur] 30 mg PO DAILY 12/25/18 Levothyroxine Sodium 175 mcg PO DAILY 12/25/18 Niacin [Niacin ER] 500 mg PO BID 12/25/18 Polyvinyl Alcohol [Artificial Tears] 1 drop OP QID PRN 12/25/18 Pravastatin Sodium 80 mg PO BEDTIME 12/25/18 Decision To Admit - Decistion To Admit Decision to Admit Reason: Medical Nature Decision to Admit Date: 12/25/18 Decision to Admit Time: 18:40
[2018-12-25] MEDS ORDERED: ASPIRIN TABLET 325 MG TAB PO ONE (18:40)
--- NOTE | 2018-12-25 19:37 | HP ---
SUPERVISING PHYSICIAN: Adam Salinas M.D. CHIEF COMPLAINT: Shortness of breath. HISTORY OF PRESENT ILLNESS: This is a 78 year-old male patient who came to the E. R. secondary to shortness of breath around 4:00 PM this afternoon. He has a history of chronic obstructive pulmonary disease and obstructive sleep apnea as well as congestive heart failure. The patient was recently at [facility] in [place] due to coronary artery disease. He had cardiac catheterization and it showed a stenosed LAD but they were unable to do a stent at that time. He does have a history of a PTCA with stents, however they were unable to stent that vessel at that time. They suggested bypass surgery but he was not in the condition that that could be done due to his COPD. Anyhow, per the E. R. record the patient has not been doing breathing treatments or taking his Lasix. When he arrived he was hypoxic and diaphoretic. He had an oxygen saturation in the 50s upon arrival. He was placed on BiPAP in the Emergency Room. His ABG post BiPAP showed acute on chronic respiratory failure. Other findings showed the patient had a significant amount of edema. Chest x-ray with some central vascular congestion. He was very diminished as well. For these reasons he was referred fro admission. At time of examination, the patient is on NIPPV. He is tolerating it well. He is alert and oriented, and able to follow commands at this time. PAST MEDICAL HISTORY: 1. Coronary artery disease. 2. Chronic obstructive pulmonary disease. 3. Congestive heart failure. 4. Benign prostatic hypertrophy. 5. Hyperlipidemia. 6. Hypertension. 7. Hypothyroidism. PAST SURGICAL HISTORY: 1. Coronary artery bypass graft. 2. PTCA with stents. 3. Vasectomy. 4. Hernia repair. CURRENT MEDICATIONS: Please see the home medication reconciliation record once they are verified in the computer. ALLERGIES: HYDROMORPHONE AND SULFA DRUGS. FAMILY HISTORY: Cannot be obtained from the patient due to the fact he cannot talk because he is on BiPAP. SOCIAL HISTORY: Per the previous record, he is a previous smoker but quit about 5 years ago. He takes no alcohol and no illicit drugs. REVIEW OF SYSTEMS: Other than the shortness of breath, really no issues. He is unable to verbalize due to the BiPAP in place but he does shake his head yes and no. PHYSICAL EXAMINATION: VITAL SIGNS: Blood pressure 133/77, heart rate 86, respiratory rate 24, temperature 99.0, oxygen saturation 97%. GENERAL: Mr. Graham is a 78 year-old male patient who is in respiratory distress currently. CHEST: Lungs are diminished with scattered rales and wheezes. CARDIOVASCULAR: Regular rate and rhythm. Normal S1 and S2. ABDOMEN: Obese, soft. Positive bowel sounds. EXTREMITIES: Lower extremities with 3+ pitting edema, 2+ pulses, capillary refill less than 2 seconds. NEUROLOGIC: The patient is alert and oriented. LABORATORY: Labs have been done that showed normal white count at 7.8, hemoglobin 12.1, platelet count 184. INR 1.09. ABG with a pH of 7.33, pCO2 of 69, pO2 of 57, bicarb 35, base excess 8.2. Chemistry shows sodium 142, potassium 4.4, chloride 98, CO2 is 32, BUN 19, creatinine 1.40, glucose 133, calcium 9.1, lactate 1.0. Troponin was elevated at 0.20. Repeat was 0.18. He is not having any chest pain. Chest x-ray with some central vascular congestion but no pneumonia process. ASSESSMENT: 1. Acute on chronic respiratory failure requiring NIPPV. 2. Chronic obstructive pulmonary disease exacerbation. 3. Congestive heart failure exacerbation. 4. Coronary artery disease with a history of an LAD which was unable to be revascularized. 5. Acute kidney injury. 6. Hypertension. 7. Hypothyroidism. 8. Hyperlipidemia. PLAN: At this time I would continue the NIPPV as he is tolerating it well. Mentation has improved. However, his lung still sound very diminished. he will need to schedule nebulizer therapy, his IV steroids as well as some diuretics. I am going to start him on DVT and GI ulcer prophylaxis as well. I will repeat his labs and chest x-ray in the morning. I will restart his home medications once they are verified in the computer as well. [facility][id number] [facility]
[2018-12-25] MEDS ORDERED: SODIUM CHLORIDE 0.9% (FLUSH) 10 ML SYG IV PRN (20:05)
[2018-12-25] MEDS: ENOXAPARIN SODIUM 40 MG/0.4 ML SYG SUBCU SCH (21:24)
[2018-12-25] MEDS: IV SET AND CAP CHANGE INJ INJ SCH (21:25)
[2018-12-25] MEDS: methylPREDNISolone SODIUM SUC 40 MG/ML VIAL IV SCH (23:59)
[2018-12-26] MEDS: IPRATROPIUM/ALBUTEROL 3 ML VIAL INH SCH ×6 (00:20→19:48)
[2018-12-26] MEDS: methylPREDNISolone SODIUM SUC 40 MG/ML VIAL IV SCH ×3 (05:41→18:37)
--- NOTE | 2018-12-26 07:20 | RAD ---
EXAM DESCRIPTION: Chest,1 View CLINICAL HISTORY: 78 years Male, respiratory failure COMPARISON: December 25, 2018 TECHNIQUE: AP portable chest. FINDINGS: Fair expansion of the lungs is evident without consolidation, layering effusion, or large mass. Heart size and vascularity appear normal for AP technique and degree of inspiration. The aortic arch and descending aorta is modestly tortuous and mildly calcified No gross bony, hilar, or mediastinal abnormalities are noted. IMPRESSION: Normal chest, one view Electronically signed by: Drew Samuel MD 12/26/2018 7:19 AM CDT
[2018-12-26] MEDS: FUROSEMIDE INJ 40 MG/4 ML VIAL IV SCH ×2 (10:21→18:38)
--- NOTE | 2018-12-26 19:54 | PN ---
DATE: 12/26/18 SUPERVISING PHYSICIAN: Adam Salinas M.D. SUBJECTIVE: The patient actually was able to get off BiPAP for a short period of time to eat lunch today, but did eventually desaturate and has to be placed back on. He has not had any complaints of chest pain, nausea or vomiting. OBJECTIVE: VITAL SIGNS: Temperature 97.3, pulse 62, blood pressure 139/82, respirations 20, satting 90% on BiPAP at 40% FiO2. Weight 110 kg. GENERAL: The patient is resting comfortably. Appears to be in no acute distress. He is currently wearing a BiPAP face mask. He is extremely [id number] but his is at bedside. CHEST: Lung sounds are diminished throughout but no obvious rales or wheezing today. HEART: Regular rate and rhythm. ABDOMEN: Obese but soft. Positive bowel sounds. EXTREMITIES: Just show 1+ edema bilaterally. NEUROLOGIC: He is alert and oriented times three. LABORATORY: White count 5,900, hemoglobin 11, hematocrit 34.6, platelet count 173,000. Differential shows to be with a left shift. Chemistries: BMP shows chloride 99, otherwise electrolytes within normal limits. Anion gap was slightly elevated at 19 with BUN 23, creatinine 1.23. Troponin is going down at 0.14. RADIOLOGY: Chest x-ray, single view chest per radiology interpretation shows normal chest 1 view. ASSESSMENT: 1. Acute on chronic congestive heart failure with exacerbation with last echocardiogram done on 11/04/18 showing an ejection fraction of 60% with a grade 1 diastolic dysfunction. 2. Severe coronary artery disease with a history of LAD occlusion unable to be vascularized with need for a coronary artery bypass graft, but unable to perform due to the patient's underlying co-morbidities. 3. Acute kidney injury showing to return to baseline with treatment. 4. Hypertension, stable. 5. Hypothyroidism. 6. Hyperlipidemia. PLAN: Will continue to try to wean the patient off BiPAP as he tolerates. He is coming off for meals essentially doing fairly well, but requires short periods of intermittent need for continuation. He continues on aggressive pulmonary hygiene. He is on continued DVT prophylaxis as well as GI prophylaxis. Will plan to repeat his labs and x-rays in the morning. Anticipate at least another 24 to 48 hours hospitalization until we wean him off BiPAP at which time will hopefully be able to discharge him to outpatient management. Until we can discharge the patient to outpatient management will continue to monitor and treat as needed. [facility][id number] [facility]
[2018-12-26] MEDS: ENOXAPARIN SODIUM 40 MG/0.4 ML SYG SUBCU SCH (20:17)
[2018-12-27] MEDS: methylPREDNISolone SODIUM SUC 40 MG/ML VIAL IV SCH ×2 (00:12→05:57)
[2018-12-27] MEDS: IPRATROPIUM/ALBUTEROL 3 ML VIAL INH SCH ×6 (04:07→20:36)
[2018-12-27] MEDS: FUROSEMIDE INJ 40 MG/4 ML VIAL IV SCH (08:21)
[2018-12-27] MEDS ORDERED: NIACIN 500 MG TAB ONE ×2 (08:25→18:59)
[2018-12-27] MEDS ORDERED: METOPROLOL TARTRATE 25 MG TAB ONE (08:26)
[2018-12-27] MEDS ORDERED: LACTOBACILLUS 1 TAB ONE (08:27)
[2018-12-27] MEDS ORDERED: LEVOTHYROXINE SODIUM 0.075 MG TAB ONE (08:29)
[2018-12-27] MEDS ORDERED: LEVOTHYROXINE SODIUM 0.025 MG TAB ONE (08:29)
[2018-12-27] MEDS: FINASTERIDE 5 MG TAB PO SCH (08:31)
[2018-12-27] MEDS: ASPIRIN TABLET 325 MG TAB PO SCH (08:31)
[2018-12-27] MEDS: METOPROLOL TARTRATE 50 MG TAB PO SCH (08:32)
[2018-12-27] MEDS: ISOSORBIDE MONONITRATE (IMDUR) 30 MG TAB PO SCH (08:32)
[2018-12-27] MEDS: TAMSULOSIN 0.4 MG CAP PO SCH ×2 (08:32→21:12)
[2018-12-27] MEDS: ARFORMOTEROL TARTRATE 15 MCG/2 ML NEB NEB SCH ×2 (08:58→20:36)
[2018-12-27] MEDS: BUDESONIDE NEBS 0.5 MG/2 ML INH NEB SCH ×2 (08:58→20:37)
[2018-12-27] MEDS ORDERED: LACTOBACILLUS PO SCH (09:00)
[2018-12-27] MEDS ORDERED: NIACIN 500 MG PO SCH (09:00)
[2018-12-27] MEDS ORDERED: NON-FORMULARY MEDICATION 1 EA MIS (Levothyroxine Sodium [Levothyroxine Sodium] 175 MCG) PO SCH (09:00)
[2018-12-27] MEDS ORDERED: SODIUM CHL 0.9% 100ML MINI-BAG 100 ML IVPB ONE (11:15)
[2018-12-27] MEDS ORDERED: SODIUM CHLORIDE 0.9% 250ML 250 ML ONE (11:15)
[2018-12-27] MEDS ORDERED: cefTRIAXone SODIUM 1 GM VIAL ONE (11:16)
[2018-12-27] MEDS ORDERED: AZITHROMYCIN IV 500 MG VIAL IVPB ONE (11:16)
[2018-12-27] MEDS ORDERED: POLYVINYL ALCOHOL 1.4% OPHTH SOL 1 DROP BOTH_EYES PRN (11:16)
[2018-12-27] MEDS ORDERED: predniSONE 20 MG TAB PO ONE ×2 (11:22→18:00)
[2018-12-27] MEDS ORDERED: predniSONE 20 MG TAB ONE ×2 (11:28→15:58)
[2018-12-27] MEDS: cefTRIAXone SODIUM 1 GM in SODIUM CHL 0.9% 50ML MIN-BAG+ 50 ML IVPB SCH (11:29)
[2018-12-27] MEDS: AZITHROMYCIN IV 500 MG in SODIUM CHLORIDE 0.9% 250ML 250 ML IVPB SCH (13:40)
[2018-12-27] MEDS: LACTOBACILLUS 1 TAB PO SCH ×2 (14:29→21:13)
--- NOTE | 2018-12-27 17:38 | PN ---
DATE: 12/27/18 SUPERVISING PHYSICIAN: Adam Salinas M.D. SUBJECTIVE: The patient today is actually off of BiPAP on high flow nasal cannula. There has been a discussion of doing some pulmonary rehab through [facility]. We are waiting for that referral. The patient has not had any other complaints. OBJECTIVE: VITAL SIGNS: Temperature 97.9, pulse 68, blood pressure 111/54, respirations 20, satting 98% on 6 liters nasal cannula at rest. I's and O's show a negative balance of 320. Weight is 110.8 kg. GENERAL: The patient is resting comfortably on nasal cannula visiting with his . He appears to be in no acute distress. CHEST: Lung sounds are diminished but improved from yesterday. No rhonchi or wheezing are noted. HEART: Regular rate and rhythm. ABDOMEN: Obese but soft, non-tender. Positive bowel sounds. EXTREMITIES: Showed just a trace of edema today. NEUROLOGIC: He is alert and oriented times three. LABORATORY: Chemistries are stable. I did not repeat any chemistries today or CBC. ASSESSMENT: 1. Acute on chronic congestive heart failure with a preserved ejection fraction noted on 11/04/18 at 60% with a grade 1 diastolic dysfunction and exacerbation, improving with treatment. 2. Chronic obstructive pulmonary disease exacerbation with acute respiratory failure requiring noninvasive positive pressure ventilation now able to tolerate nasal cannula, unable to fully rule out underlying pneumonia with the patient responding to corticosteroids. 3. Severe coronary artery disease with a history of LAD occlusion unable to be stented and the patient needing a coronary artery bypass graft, but unable to currently perform due to the patient's underlying co-morbidities, COPD and congestive heart failure. 4. Acute kidney injury now at baseline levels. 5. Hypertension, stable. 6. Hypothyroidism. 7. Hyperlipidemia. PLAN: Will continue to follow the patient today as he hopefully is able to remain off BiPAP. I did start him on some antibiotics with Rocephin and azithromycin given the fact that on his x-ray cannot completely rule out that there may be an underlying infectious process. He is on DVT prophylaxis. He is actually able to ambulate with Physical Therapy. Discussions is to do some pulmonary rehab through [facility]. We are awaiting that referral. Until then will continue to monitor and treat as needed. Hopefully be able to discharge either tomorrow or Sunday. [facility][id number] [facility]
[2018-12-27] MEDS ORDERED: ATORVASTATIN 20 MG TAB PO ONE (18:59)
[2018-12-27] MEDS: ENOXAPARIN SODIUM 40 MG/0.4 ML SYG SUBCU SCH (20:13)
[2018-12-27] MEDS: NIACIN 500 MG TAB PO SCH (21:12)
[2018-12-27] MEDS: ATORVASTATIN 20 MG TAB PO SCH (21:12)
[2018-12-28] MEDS: IPRATROPIUM/ALBUTEROL 3 ML VIAL INH SCH ×7 (00:30→23:30)
[2018-12-28] MEDS ORDERED: LEVOTHYROXINE SODIUM 0.1 MG TAB ONE (04:23)
[2018-12-28] MEDS ORDERED: LEVOTHYROXINE SODIUM 0.075 MG TAB ONE (04:23)
[2018-12-28] MEDS: LEVOTHYROXINE SODIUM 0.075 MG TAB PO SCH (05:59)
[2018-12-28] MEDS: LEVOTHYROXINE SODIUM 0.1 MG TAB PO SCH (05:59)
[2018-12-28] MEDS: BUDESONIDE NEBS 0.5 MG/2 ML INH NEB SCH ×2 (08:13→20:20)
[2018-12-28] MEDS: ARFORMOTEROL TARTRATE 15 MCG/2 ML NEB NEB SCH ×2 (08:13→20:20)
[2018-12-28] MEDS: ASPIRIN TABLET 325 MG TAB PO SCH (09:15)
[2018-12-28] MEDS: NIACIN 500 MG TAB PO SCH ×2 (09:15→20:45)
[2018-12-28] MEDS: ISOSORBIDE MONONITRATE (IMDUR) 30 MG TAB PO SCH (09:16)
[2018-12-28] MEDS: METOPROLOL TARTRATE 50 MG TAB PO SCH (09:16)
[2018-12-28] MEDS: FINASTERIDE 5 MG TAB PO SCH (09:16)
[2018-12-28] MEDS: FUROSEMIDE 40 MG TAB PO SCH (09:16)
[2018-12-28] MEDS: TAMSULOSIN 0.4 MG CAP PO SCH ×2 (09:16→20:45)
[2018-12-28] MEDS: LACTOBACILLUS 1 TAB PO SCH ×3 (09:16→20:45)
[2018-12-28] MEDS ORDERED: cefTRIAXone SODIUM 1 GM VIAL ONE (12:27)
[2018-12-28] MEDS ORDERED: SODIUM CHL 0.9% 50ML MIN-BAG+ 50 ML IVPB ONE (12:27)
[2018-12-28] MEDS: cefTRIAXone SODIUM 1 GM in SODIUM CHL 0.9% 50ML MIN-BAG+ 50 ML IVPB SCH (12:30)
[2018-12-28] MEDS: AZITHROMYCIN IV 500 MG in SODIUM CHLORIDE 0.9% 250ML 250 ML IVPB SCH (13:17)
[2018-12-28] MEDS ORDERED: AZITHROMYCIN IV 500 MG VIAL IVPB ONE (14:14)
[2018-12-28] MEDS ORDERED: SODIUM CHLORIDE 0.9% 250ML 250 ML ONE (14:14)
[2018-12-28] MEDS: ENOXAPARIN SODIUM 40 MG/0.4 ML SYG SUBCU SCH (20:45)
[2018-12-28] MEDS: IV SET AND CAP CHANGE INJ INJ SCH (20:45)
[2018-12-28] MEDS: ATORVASTATIN 20 MG TAB PO SCH (20:45)
--- NOTE | 2018-12-28 22:28 | PN ---
DATE: 12/28/18 SUPERVISING PHYSICIAN: Adam Salinas M.D. SUBJECTIVE: The patient is still needing some intermittent BiPAP but he is doing well on the high flow nasal cannula and has actually been able to tolerate lower flows. He has had no worsening shortness of breath. No chest pains. No nausea or vomiting. OBJECTIVE: VITAL SIGNS: He remains afebrile. temperature 97.8, pulse 73, blood pressure 126/65, respirations 20, satting 89% on room air but 94% on nasal cannula at 4 liters. I's and O's show a negative balance of 325 with 1225 in, 1550 out. Weight 110. kg. GENERAL: The patient is resting comfortably. Appears to be in no acute distress. CHEST: Lungs are clear to auscultation today, just slightly diminished towards the bases. HEART: Regular rate and rhythm. No appreciable murmurs, gallops, or rubs. ABDOMEN: Soft, non-tender. Positive bowel sounds. EXTREMITIES: Without any edema. NEUROLOGIC: He is alert and oriented times three. LABORATORY: No additional laboratory studies. Chemistries and CBC were showing to be stable. RADIOLOGY: No additional radiographic studies. ASSESSMENT: 1. Acute on chronic congestive heart failure with a preserved ejection fraction noted on 11/04/18 at 60% with a grade 1 diastolic dysfunction and exacerbation, improving with treatment. 2. Chronic obstructive pulmonary disease exacerbation with acute respiratory failure requiring noninvasive positive pressure ventilation now able to tolerate nasal cannula, unable to fully rule out underlying pneumonia with the patient responding to corticosteroids. 3. Severe coronary artery disease with a history of LAD occlusion unable to be stented and the patient needing a coronary artery bypass graft, but unable to currently perform due to the patient's underlying co-morbidities, COPD and congestive heart failure. 4. Acute kidney injury now at baseline levels. 5. Hypertension, stable. 6. Hypothyroidism. 7. Hyperlipidemia. PLAN: Continue current plan with antibiotic coverage and aggressive pulmonary hygiene. Will continue to wean off BiPAP with anticipation of hopefully being able to discharge to [facility] later today or tomorrow. Until then will continue to monitor and treat as needed. [facility][id number] [facility]
[2018-12-29] MEDS: IPRATROPIUM/ALBUTEROL 3 ML VIAL INH SCH ×2 (03:41→08:26)
[2018-12-29] MEDS: LEVOTHYROXINE SODIUM 0.1 MG TAB PO SCH (06:09)
[2018-12-29] MEDS: LEVOTHYROXINE SODIUM 0.075 MG TAB PO SCH (06:09)
[2018-12-29] MEDS: TAMSULOSIN 0.4 MG CAP PO SCH (07:55)
[2018-12-29] MEDS: ASPIRIN TABLET 325 MG TAB PO SCH (07:55)
[2018-12-29] MEDS: NIACIN 500 MG TAB PO SCH (07:55)
[2018-12-29] MEDS: FUROSEMIDE 40 MG TAB PO SCH (07:55)
[2018-12-29] MEDS: ISOSORBIDE MONONITRATE (IMDUR) 30 MG TAB PO SCH (07:55)
[2018-12-29] MEDS: FINASTERIDE 5 MG TAB PO SCH (07:55)
[2018-12-29] MEDS: METOPROLOL TARTRATE 50 MG TAB PO SCH (07:55)
[2018-12-29] MEDS: LACTOBACILLUS 1 TAB PO SCH (07:56)
[2018-12-29] MEDS: BUDESONIDE NEBS 0.5 MG/2 ML INH NEB SCH (08:26)
[2018-12-29] MEDS: ARFORMOTEROL TARTRATE 15 MCG/2 ML NEB NEB SCH (08:26)
[2018-12-29 12:12] VITALS: BP 137/73; TEMP 97.1; O2SAT 95
--- NOTE | 2019-01-01 17:29 | DS ---
SUPERVISING PHYSICIAN: Adam Salinas MD ADMISSION DIAGNOSES: 1. Acute on chronic respiratory failure requiring NIPPV. 2. Chronic obstructive pulmonary disease exacerbation. 3. Congestive heart failure exacerbation. 4. Coronary artery disease with a history of an LAD which was unable to be revascularized. 5. Acute kidney injury. 6. Hypertension. 7. Hypothyroidism. 8. Hyperlipidemia. DISCHARGE DIAGNOSES: 1. Acute on chronic congestive heart failure with a preserved ejection fraction noted on 11/04/18 at 60% with a grade 1 diastolic dysfunction and exacerbation, improving with treatment. 2. Chronic obstructive pulmonary disease exacerbation with acute respiratory failure requiring noninvasive positive pressure ventilation now able to tolerate nasal cannula, unable to fully rule out underlying pneumonia with the patient responding to corticosteroids. 3. Severe coronary artery disease with a history of LAD occlusion unable to be stented and the patient needing a coronary artery bypass graft, but unable to currently perform due to the patient's underlying co-morbidities, COPD and congestive heart failure. 4. Acute kidney injury now at baseline levels. 5. Hypertension, stable. 6. Hypothyroidism. 7. Hyperlipidemia. REASON FOR HOSPITALIZATION: This is a 78 year-old male patient who came to the E. R. secondary to shortness of breath around 4:00 PM this afternoon. He has a history of chronic obstructive pulmonary disease and obstructive sleep apnea as well as congestive heart failure. The patient was recently at [facility] in [place] due to coronary artery disease. He had cardiac catheterization and it showed a stenosed LAD but they were unable to do a stent at that time. He does have a history of a PTCA with stents, however they were unable to stent that vessel at that time. They suggested bypass surgery but he was not in the condition that that could be done due to his COPD. Anyhow, per the E. R. record the patient has not been doing breathing treatments or taking his Lasix. When he arrived he was hypoxic and diaphoretic. He had an oxygen saturation in the 50s upon arrival. He was placed on BiPAP in the Emergency Room. His ABG post BiPAP showed acute on chronic respiratory failure. Other findings showed the patient had a significant amount of edema. Chest x-ray with some central vascular congestion. He was very diminished as well. For these reasons he was referred fro admission. At time of examination, the patient is on NIPPV. He is tolerating it well. He is alert and oriented, and able to follow commands at this time. LABORATORY: On discharge white count was 5,900, hemoglobin stable at 11, hematocrit 34.6, platelet count 173,000, differential did show a left shift. Coagulation studies showed to be was negative. Initially, blood gases on admission showed a pH of 7.33, PC02 69, P02 57, bicarb 34, base excess 8.2, oxygen saturation 93%. Chemistries showed on discharge to be within normal limits on electrolytes, just continued anion gap that was elevated at 92.6, BUN 23, creatinine 1.28, troponins were elevated initially at 0.2 but were trending down to 0.25 prior to discharge. Liver functions were all within normal limits. RADIOLOGY: Chest x-ray initially on admission per radiology interpretation showed a right perihilar airspace opacity and repeat chest x-ray showed normal chest after initiation of antibiotics and BiPAP. HOSPITAL COURSE: Mr. Graham was admitted for acute respiratory distress secondary to Klebsiella pneumonia as well as congestive heart failure exacerbation. He was started on antibiotics, Lasix, Solu-Medrol, aggressive pulmonary hygiene, required noninvasive mandatory pressure support with BiPAP and was slowly weaned to nasal cannula and started on oral antibiotics as well as Lasix. He showed good clinical response to treatment. Prior to discharge, it was felt he had responded well enough to continue with outpatient management. Therefore, arrangements were made for him to go to pulmonary rehabilitation in [facility]. DISCHARGE PHYSICAL EXAMINATION: [facility] SIGNS: Temperature 97.1, pulse 63, blood pressure 137/73, respirations 18, oxygen saturation 95% on 4 liters nasal cannula. . GENERAL: The patient is resting comfortably, he is certainly hard of hearing but he was alert. . CHEST: Clear to auscultation, just slightly diminished toward the bases. HEART: Regular rate and rhythm. ABDOMEN: Soft, non-tender, positive bowel sounds. EXTREMITIES: On discharge, showing to be without any edema. NEUROLOGIC: He was alert and oriented x 3. PLAN: Mr. Graham was discharged on 12/29 to transfer to inpatient rehabilitation at [facility] in [place]. Once discharged, he will need to followup with Dr. Asher in 1 to 2 weeks. He was to continue his diet as tolerated and physical therapy as tolerated as per physical therapy evaluation and treatment. Discharge Medications: Cefdinir 300 mg twice a day for additional 3 days, no refills. All other medications prior to hospitalization were continued including Lactobacillus, Lasix, Flomax, Pravastatin, artificial tears, Niacin, metoprolol, Levothyroxine, Imdur, Duoneb, Proscar, Ciprofloxacin drops to left eye, Budesonide 1 mg b.i.d., aspirin, Brovana. DISPOSITION: The patient is discharged and transferred to [facility] for pulmonary rehabilitation. CONDITION ON DISCHARGE: Stable and improved. #[id number] [facility]
== END 2018-12-29 10:55 | DRG 291 ==
LOC: ER 15:48 → MS 19:36 → OBSVTOIN 19:36
PROVIDERS: ADMIT Nurse Practitioner; ATTEND Nurse Practitioner Family
DX: I11.0 Hypertensive heart disease with heart failure (principal); J15.0 Pneumonia due to Klebsiella pneumoniae; J44.1 Chronic obstructive pulmonary disease with (acute) exacerbation; J44.0 Chronic obstructive pulmonary disease with (acute) lower respiratory infection; J96.21 Acute and chronic respiratory failure with hypoxia; N17.9 Acute kidney failure, unspecified; G93.1 Anoxic brain damage, not elsewhere classified; I50.33 Acute on chronic diastolic (congestive) heart failure; I25.10 Atherosclerotic heart disease of native coronary artery without angina pectoris; I25.82 Chronic total occlusion of coronary artery; E03.9 Hypothyroidism, unspecified; E78.5 Hyperlipidemia, unspecified; G47.33 Obstructive sleep apnea (adult) (pediatric); N40.0 Benign prostatic hyperplasia without lower urinary tract symptoms; F03.90 Unspecified dementia, unspecified severity, without behavioral disturbance, psychotic disturbance, mood disturbance, and anxiety; E66.9 Obesity, unspecified; Z95.5 Presence of coronary angioplasty implant and graft; Z88.2 Allergy status to sulfonamides; Z88.5 Allergy status to narcotic agent; Z87.891 Personal history of nicotine dependence; Z79.82 Long term (current) use of aspirin; Z79.899 Other long term (current) drug therapy; Z68.33 Body mass index [BMI] 33.0-33.9, adult

== ENCOUNTER → 2019-01-22 | Outpatient (CLI) | payer MEDICARE, OTHER | LOC: GMAE 12:20 | PROVIDERS: ATTEND Family Medicine | DX: E87.5 Hyperkalemia (principal) ==

== ENCOUNTER → 2019-02-12 | Outpatient (CLI) | payer MEDICARE, OTHER | LOC: YCHH 13:17 | PROVIDERS: ATTEND Family Medicine | DX: N40.0 Benign prostatic hyperplasia without lower urinary tract symptoms (principal); E03.9 Hypothyroidism, unspecified; R68.89 Other general symptoms and signs; I42.9 Cardiomyopathy, unspecified ==

== ENCOUNTER → 2019-02-19 | Outpatient (CLI) | payer MEDICARE, OTHER | END | disposition home or self-care (01) | LOC: YCHH 09:24 | PROVIDERS: ATTEND Family Medicine | DX: E03.9 Hypothyroidism, unspecified (principal); R73.09 Other abnormal glucose; E78.5 Hyperlipidemia, unspecified ==

== ENCOUNTER → 2019-11-11 | Outpatient (CLI) | payer MEDICARE, OTHER | LOC: YCHH 09:51 | PROVIDERS: ATTEND Family Medicine | DX: R79.89 Other specified abnormal findings of blood chemistry (principal); E78.2 Mixed hyperlipidemia; D64.9 Anemia, unspecified; E03.8 Other specified hypothyroidism ==

== ENCOUNTER 2020-02-01 12:29 | Inpatient (IN) | payer MEDICARE, OTHER ==
--- NOTE | 2020-02-01 13:52 | RAD ---
: 1940. Technique: Portable AP chest x-ray. Comparison: December 26, 2019. Clinical history: hypoxia, ams. Heart size: Heart size is moderately enlarged. No vascular congestion. Calcification in the aorta and. Lungs: No acute consolidation. Pleura: No pleural effusion. No pneumothorax. Mediastinum and james: Unremarkable. Skeletal: Unremarkable. Support tubings: None. Impression: 1. Cardiomegaly. Electronically signed by: Santana Blake MD 02/01/2020 1:50 PM [facility]
[2020-02-01] MEDS ORDERED: AZITHROMYCIN IV 500 MG in SODIUM CHLORIDE 0.9% 250ML 250 ML IVPB ONE (13:53)
[2020-02-01] MEDS ORDERED: DEXAMETHASONE INJ 4 MG/ML VIAL IV ONE ×2 (13:53→15:52)
[2020-02-01] MEDS ORDERED: cefTRIAXone SODIUM 1 GM in SODIUM CHL 0.9% 50ML MIN-BAG+ 50 ML IVPB ONE (13:53)
[2020-02-01] MEDS ORDERED: IPRATROPIUM/ALBUTEROL 3 ML VIAL NEB ONE ×2 (13:58→16:10)
--- NOTE | 2020-02-01 14:15 | ED.PDOC ---
History of Present Illness - General Chief Complaint: Respiratory Problem Stated Complaint: shortness of breath,lethargy Time Seen by Provider: 02/01/20 12:47 Source: patient Exam Limitations: no limitations - History of Present Illness Initial Comments: Patient is a 79-year-old male presenting from the long-term secondary to altered mental state, with decreased level of consciousness as well as hypoxia and increased work of breathing. There has been a recent outbreak of the coronavirus at the facility. No fevers. It is uncertain when the last time he was seen unaltered. Mental status does improve here after receiving supplemental oxygen and breathing treatment. He does appear to be able to move all extremities fairly well. After about 30 minutes the patient sits up in bed and waves staff over and yells "nils aquino take a piss!". Speech was very clear with it. Patient does have a very difficult time hearing any do have to yell at him. He does exhibit increased work of breathing. He does have coarse rhonchi throughout. Fair air movement. Occasional wheezes. No evidence of chest pain or abdominal pain. Pupils are symmetrical. The patient will follow commands that he could hear. He does know that he is in [facility]. I am uncertain what his baseline mental status is. He is apparently normally able to get around on his own and talk. Timing/Duration: unsure Severity: severe Improving Factors: nothing Worsening Factors: nothing Associated Symptoms: malaise, shortness of breath Allergies/Adverse Reactions: Allergies Hydromorphone [From Dilaudid] Allergy (Severe, Verified 10/23/18 19:58) sob Sulfa Antibiotics Allergy (Intermediate, Verified 10/23/18 19:58) Rash itching Home Medications: Ambulatory Orders Budesonide (Inhalation) [Budesonide] 0.25 mg INH DAILY 10/23/18 Isosorbide Mononitrate [Imdur] 30 mg PO DAILY 12/25/18 Arformoterol Tartrate [Brovana] 15 mcg INH BID 12/26/19 Finasteride [Proscar] 5 mg PO DAILY 12/26/19 Levothyroxine Sodium 125 mcg PO QAM 12/26/19 Potassium Chloride [K-Tab] 10 meq PO DAILY 12/26/19 Simvastatin 40 mg PO QPM 12/26/19 Tamsulosin HCl [Flomax] 0.4 mg PO DAILY 12/26/19 Albuterol Sulfate Nebs [Proventil Nebs] 2.5 mg INH Q4H PRN 02/01/20 Aspirin [Aspirin Adult Low Dose] 81 mg PO DAILY 02/01/20 Review of Systems - Review of Systems Constitutional: States: malaise EENTM: States: nose congestion - The patient is hardly able to breathe through his nose. He oxygenates better breathing through his mouth. Respiratory: States: short of breath, wheezing Cardiology: States: no symptoms reported Gastrointestinal/Abdominal: States: no symptoms reported Genitourinary: States: no symptoms reported Musculoskeletal: States: no symptoms reported Skin: States: no symptoms reported Neurological: States: see HPI Endocrine: States: no symptoms reported All other Systems: No Change from Baseline Past Medical History (General) - Patient Medical History Hx Seizures: No Hx Stroke: No Hx Dementia: Yes - forgetful Hx Asthma: No Hx of COPD: Yes Hx Cardiac Disorders: Yes Hx Congestive Heart Failure: No Hx Pacemaker: No Hx Hypertension: Yes Hx Thyroid Disease: Yes Hx Diabetes: No Hx Gastroesophageal Reflux: No Hx Renal Disease: Yes Hx Cancer: No Hx of HIV: No Hx Hepatitis C: No Hx MRSA: No MRSA Source:: Blood - Vaccination History Hx Tetanus, Diphtheria Vaccination: Yes Hx Influenza Vaccination: Yes Hx Pneumococcal Vaccination: Yes - Social History Hx Tobacco Use: Yes Hx Chewing Tobacco Use: No Hx Alcohol Use: No Hx Substance Use: No Hx Substance Use Treatment: No Hx Depression: No Hx Physical Abuse: No Hx Emotional Abuse: No Hx Suspected Abuse: No - Activities of Daily Living Custodial/Assisted Living (if applicable):: [facility] - Female History Patient : No Family Medical History - Family History Father Family History: Unknown Living Status: Physical Exam - Physical Exam General Appearance: Lethargic - The patient is arousable when you yell at him. He is very hard of hearing. Even with his hearing aids in. Eye Exam: bilateral normal Ears, Nose, Throat: normal pharynx, other - Hearing is severely diminished bilaterally. 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 He does know he is in the [facility] emergency room. Skin Exam: pallor Comments: Vital Signs - 24 hr 02/01/20 02/01/20 12:46 13:09 Temperature 98.6 F Pulse Rate [ 89 84 Right Brachial] Respiratory 28 H 28 H Rate Blood Pressure 121/63 [Right Arm] O2 Sat by Pulse 94 L Oximetry Progress - Progress Progress: 02/01/20 14:19 The patient is a 79-year-old male presenting to the emergency room secondary to altered mental state and shortness of breath. 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 He has had this issue in the past as he has had chronic lung problems. The patient did test positive for coronavirus here even though he tested negative a couple of days ago. The patient is being started on dexamethasone, remdesivir, Rocephin and azithromycin. He does have a small urinary tract infection. The Rocephin will hopefully cover this. The patient is requiring supplemental oxygen and has received several breathing treatments here. The patient is likely going to require a mask of some form as he does not breathe well through his nose. Chest x-ray is reassuring. Ancillary labs are pending. Blood and sputum culture are being done. The patient does have numerous comorbidities and his mortality rate is significant with this disease. Admit for continued care. The patient is mentating better at this point and breathing more easily. pablo [email or web address] [phone] - Results/Orders Results/Orders: Chest x-ray shows chronic changes only. No focal pneumonia. EKG shows normal sinus rhythm at 85 bpm. Normal axis. Slow R wave progression. Right bundle branch block. No definitive acute ST segment or T wave changes indicative of acute ischemia though the baseline is somewhat tremulous. Normal QT interval. Laboratory Tests 02/01/20 02/01/20 02/01/20 13:13 13:16 13:16 WBC 5.9 RBC 4.07 L Hgb 11.5 L Hct 36.1 L MCV 88.7 MCH 28.2 MCHC 31.8 L RDW 16.1 H Plt Count 116 L MPV 8.2 Absolute Neuts (auto) 4.50 Absolute Lymphs (auto) 0.60 L Absolute Monos (auto) 0.70 Absolute Eos (auto) 0.10 Absolute Basos (auto) 0.00 Neutrophils % 75.5 Lymphocytes % 10.5 L Monocytes % 11.7 H Eosinophils % 1.8 Basophils % 0.5 PT INR PTT (SP) Sodium 143 Potassium 5.0 Chloride 97 L Carbon Dioxide 39 H Anion Gap 12.0 BUN 25 H Creatinine 1.23 BUN/Creatinine Ratio 20.3 H Random Glucose 100 Serum Osmolality 289.5 Lactic Acid Calcium 8.8 Magnesium 2.0 Total Bilirubin 0.7 AST 21 ALT 21 Alkaline Phosphatase 43 Creatine Kinase 109 CK-MB (CK-2) 3.9 CK-MB (CK-2) % Not Reportable Troponin I 0.02 B-Natriuretic Peptide 31.4 Serum Total Protein 6.9 Albumin 3.8 Globulin 3.1 Albumin/Globulin Ratio 1.2 Urine Color Yellow Urine Appearance Sl cloudy Urine pH 5.5 Ur Specific [place] >= 1.030 Urine Protein Trace Urine Glucose (UA) Negative Urine Ketones Negative Urine Blood Small H Urine Nitrite Negative Urine Bilirubin Negative Urine Urobilinogen 0.2 Ur Leukocyte Esterase Large H Urine RBC 5-10 H Urine WBC 20-30 H Ur Epithelial Cells 0 Urine Bacteria 3+ H 02/01/20 02/01/20 13:16 13:16 WBC RBC Hgb Hct MCV MCH MCHC RDW Plt Count MPV Absolute Neuts (auto) Absolute Lymphs (auto) Absolute Monos (auto) Absolute Eos (auto) Absolute Basos (auto) Neutrophils % Lymphocytes % Monocytes % Eosinophils % Basophils % PT 10.0 INR 1.01 PTT (SP) 24.6 Sodium Potassium Chloride Carbon Dioxide Anion Gap BUN Creatinine BUN/Creatinine Ratio Random Glucose Serum Osmolality Lactic Acid 1.1 Calcium Magnesium Total Bilirubin AST ALT Alkaline Phosphatase Creatine Kinase CK-MB (CK-2) CK-MB (CK-2) % Troponin I B-Natriuretic Peptide Serum Total Protein Albumin Globulin Albumin/Globulin Ratio Urine Color Urine Appearance Urine pH Ur Specific [place] Urine Protein Urine Glucose (UA) Urine Ketones Urine Blood Urine Nitrite Urine Bilirubin Urine Urobilinogen Ur Leukocyte Esterase Urine RBC Urine WBC Ur Epithelial Cells Urine Bacteria Departure - Departure Clinical Impression: Pneumonia due to COVID-19 virus, Hypoxic encephalopathy Disposition: Admit Patient Departure Forms: ED Discharge - Pt. Copy, Patient Portal Self Enrollment Referrals: DIAMNOD RIVERA MD [Primary Care Provider] - 1-2 Weeks Home Medications: Ambulatory Orders Budesonide (Inhalation) [Budesonide] 0.25 mg INH DAILY 10/23/18 Isosorbide Mononitrate [Imdur] 30 mg PO DAILY 12/25/18 Arformoterol Tartrate [Brovana] 15 mcg INH BID 12/26/19 Finasteride [Proscar] 5 mg PO DAILY 12/26/19 Levothyroxine Sodium 125 mcg PO QAM 12/26/19 Potassium Chloride [K-Tab] 10 meq PO DAILY 12/26/19 Simvastatin 40 mg PO QPM 12/26/19 Tamsulosin HCl [Flomax] 0.4 mg PO DAILY 12/26/19 Albuterol Sulfate Nebs [Proventil Nebs] 2.5 mg INH Q4H PRN 02/01/20 Aspirin [Aspirin Adult Low Dose] 81 mg PO DAILY 02/01/20 Decision To Admit - Decistion To Admit Decision to Admit Reason: Medical Nature Decision to Admit Date: 02/01/20 Decision to Admit Time: 14:21
--- NOTE | 2020-02-01 14:40 | HP ---
SUPERVISING PHYSICIAN: Josue Asher M.D. CHIEF COMPLAINT: Shortness of breath. HISTORY OF PRESENT ILLNESS: This is a 79 year-old male patient who lives at [facility] with altered mental status and decreased level of consciousness as well as hypoxia and increased work of breathing. There had been another outbreak of coronavirus at his facility. There were no reported fevers but his oxygen saturation was in the 80s. Initially, he was quite obtunded but after receiving supplemental oxygen as well as a breathing treatment in the Emergency Room, he became more awake and alert. He is very hard of hearing. He tested positive for Covid-19. His initial vital signs were temperature of 98.6 with heart rate of 89, blood pressure 121/63, respiratory rate 28, oxygen saturation 94%. Lab studies showed WBC of 5.9 with hemoglobin 11.5, hematocrit 36.1. Platelet count slightly low at 116,000. Fibrinogen was 395, D-dimer 1,370. Electrolytes were basically within normal limits. His lactic acid was 1.1, LD 194, C-reactive protein 2.4, TSH 25.88. Urinalysis showed small amount of urine blood with a large amount of urine leukocyte esterase, 5 to 10 urine RBCs and 20 to 30 urine WBCs, 3+ urine bacteria. Blood cultures were done, urine cultures pending. Covid swab per PCR was positive. Initial chest x-ray showed cardiomegaly. He was given antibiotics, Decadron and breathing treatments in the Emergency Room and admitted to the Floor in stable condition. As he was being transferred over to the bed, his oxygen was taken off temporarily, he did drop to 77%. He was only off for 1 to 2 minutes. It required a nonrebreather and then Hyflo oxygen to rebound to the low 90s. He was quite tachypneic and sounded very wet. Chest x- ray was ordered and extra Decadron was ordered as well as an extra breathing treatment. DuoNeb and albuterol will be ordered via nebulizer with a Covid mask due to patient's severe dyspnea, increased work of breathing and significant history of chronic obstructive pulmonary disease. Followup chest x-ray showed: 1. No pulmonary opacities identified. Please note that lungs may initially appear clear in the first few days of Covid-19 infection and chest radiographs have sensitivity for detection of subtle ground glass opacities. PAST MEDICAL HISTORY: 1. Cleaned and dressed. 2. Chronic obstructive pulmonary disease. 3. Congestive heart failure. 4. Benign prostatic hypertrophy. 5. Hyperlipidemia. 6. Hypertension. 7 Hypothyroidism. PAST SURGICAL HISTORY: 1. Coronary artery bypass graft. 2. PTCA with stent. 3. Vasectomy. 4. Hernia repair. HOME MEDICATIONS: Per the EMR and awaiting verification. ALLERGIES: HYDROMORPHONE AND SULFA, FAMILY HISTORY: Unknown. SOCIAL HISTORY: He lives at [facility]. He is a previous smoker but quit about 5 or 6 years ago. There is no ETOH or illicit drug use. REVIEW OF SYSTEMS: Patient unable to answer due to his increased work of breathing, tachypnea and shortness of breath. PHYSICAL EXAMINATION: VITAL SIGNS: Temperature 97.9, heart rate 84, blood pressure 143/84, respiratory rate 28, O2 sat 93% on oxygen. GENERAL: This is a 79 year-old male patient who is lying in his hospital bed. He is in significant respiratory distress. HEENT: Normocephalic and atraumatic. Oropharynx is clear. NECK: Supple without mass. RESPIRATORY: Scattered rales throughout with expiratory wheezing and scattered rhonchi as well. He is tachypneic, he has accessory muscle use. He is unable to speak at this time due to his shortness of breath. CHEST: There is equal rise and fall of the chest with inspiration and expiration. CARDIOVASCULAR: Regular rate and rhythm. GASTROINTESTINAL: Abdomen is soft, nondistended, non-tender. Bowel sounds are positive. EXTREMITIES: No cyanosis or clubbing. He has +2 edema to his lower extremities. SKIN: [place], warm and dry NEUROLOGIC: He is awake, alert. LABORATORY: Labs and films are as per the history of present illness. ASSESSMENT: 1. Covid-19 pneumonitis. 2. Altered mental status due to hypoxia. 3. Chronic obstructive pulmonary disease with acute exacerbation complicated by #1. 4. Urinary tract infection. 5. Congestive heart failure with mild diastolic dysfunction, ejection fraction of 60% on his echocardiogram of October 2018. 6. Thrombocytopenia. 7. BPH. 8. Hyperlipidemia. 9. Coronary artery disease. 10. Hypertension, 11. Hypothyroidism. PLAN: The patient has been admitted to the hospital. We will initiate the pneumonia guidelines and the Covid protocol, monitor his labs closely. He will be on Remdesivir for 5 days, Decadron, azithromycin, Ceftriaxone and Lovenox. He will have aggressive pulmonary hygiene including scheduled DuoNeb and p.r.n. albuterol. His home medications will be restarted as soon as they are verified. He will have a PPI for ulcer prophylaxis. The Ceftriaxone should cover for the urinary tract infection and will monitor his cultures. #[id number] [facility]
[2020-02-01] MEDS ORDERED: SODIUM CHLORIDE 0.9% (FLUSH) 10 ML SYG ONE (14:44)
[2020-02-01] MEDS ORDERED: FUROSEMIDE INJ 40 MG/4 ML VIAL IV ONE (15:47)
[2020-02-01] MEDS ORDERED: DEXAMETHASONE INJ 10 MG/ML VIAL ONE (16:01)
[2020-02-01] MEDS ORDERED: SODIUM CHLORIDE 0.9% (FLUSH) 10 ML SYG IV PRN (16:11)
[2020-02-01] MEDS ORDERED: ACETAMINOPHEN 325 MG TAB PO PRN (16:16)
[2020-02-01] MEDS ORDERED: ONDANSETRON INJ 4 MG/2 ML VIAL IV PRN (16:16)
--- NOTE | 2020-02-01 17:09 | RAD ---
EXAM DESCRIPTION: Chest,1 View CLINICAL HISTORY: 79 years Male, covid; increased resp effort; decreased o2 sat COMPARISON: 02/01/2020 TECHNIQUE: Single AP chest radiograph. FINDINGS: Clear lungs. No pneumothorax or pleural effusion. Normal cardiomediastinal contour. Normal osseous structures. IMPRESSION: 1. No pulmonary opacities identified. Please note that lungs may initially appear clear in the first few days of COVID-19 infection, and that chest radiographs have low sensitivity for detection of subtle groundglass opacities. Electronically signed by: Ernesto Alegre MD 02/01/2020 5:08 PM [facility]
[2020-02-01] MEDS: ALBUTEROL INHALER 64 PUFF/8GM INH SCH ×2 (17:39→20:30)
[2020-02-01] MEDS: IV SET AND CAP CHANGE INJ INJ SCH (17:51)
[2020-02-01] MEDS ORDERED: NON-FORMULARY MEDICATION 1 EA MIS (Simvastatin [Simvastatin] 40 MG) PO SCH (18:00)
[2020-02-01] MEDS ORDERED: SIMVASTATIN 20 MG TAB ONE (18:09)
[2020-02-01] MEDS ORDERED: REMDESIVIR 200 MG in SODIUM CHLORIDE 0.9% 250ML 250 ML IVPB ONE (19:54)
[2020-02-01] MEDS ORDERED: LEVOTHYROXINE SODIUM 0.112 MG TAB ONE (20:27)
[2020-02-01] MEDS ORDERED: SODIUM CHLORIDE 0.9% 250ML 250 ML ONE (20:27)
[2020-02-01] MEDS ORDERED: LEVOTHYROXINE SODIUM 0.025 MG TAB ONE (20:27)
[2020-02-01] MEDS ORDERED: REMDESIVIR 200 MG ONE (20:28)
[2020-02-01] MEDS: IPRATROPIUM/ALBUTEROL 3 ML VIAL INH SCH (20:30)
[2020-02-01] MEDS: ARFORMOTEROL TARTRATE 15 MCG/2 ML NEB NEB SCH (20:30)
[2020-02-01] MEDS: ENOXAPARIN SODIUM 40 MG/0.4 ML SYG SUBCU SCH (20:48)
[2020-02-01] MEDS: guaiFENesin ER TAB 600 MG TAB PO SCH ×2 (20:49→23:08)
[2020-02-02] MEDS: LEVOTHYROXINE SODIUM 0.112 MG, LEVOTHYROXINE SODIUM 0.025 MG PO SCH ×2 (05:49)
[2020-02-02] MEDS ORDERED: PANTOPRAZOLE SODIUM IV 40 MG VIAL IV SCH (06:30)
--- NOTE | 2020-02-02 07:05 | RAD ---
PROCEDURE:XR CHEST 1 VIEW HISTORY:Pneumonia COMPARISON: February 01, 2020 FINDINGS: The heart is seen to be enlarged.. The lungs are clear there is no alveolar consolidation, effusion or pneumothorax. The osseous structures and soft tissues are normal. IMPRESSION: Stable chest x-ray. Electronically signed by: Abraham Liang MD 02/02/2020 7:04 AM [facility]
[2020-02-02] MEDS: ISOSORBIDE MONONITRATE (IMDUR) 30 MG TAB PO SCH (08:33)
[2020-02-02] MEDS: TAMSULOSIN 0.4 MG CAP PO SCH (08:33)
[2020-02-02] MEDS: FINASTERIDE 5 MG TAB PO SCH (08:33)
[2020-02-02] MEDS: guaiFENesin ER TAB 600 MG TAB PO SCH ×2 (08:33→20:12)
[2020-02-02] MEDS: POTASSIUM CHLORIDE 10 MEQ TAB PO SCH (08:33)
[2020-02-02] MEDS: BIFIDOBACTERIUM INFANTIS 4 MG CAP PO SCH (08:34)
[2020-02-02] MEDS ORDERED: AZITHROMYCIN IV 500 MG VIAL IVPB ONE (08:34)
[2020-02-02] MEDS: ASPIRIN (ENTERIC COATED) 81 MG TAB PO SCH (08:34)
[2020-02-02] MEDS ORDERED: cefTRIAXone SODIUM 1 GM VIAL ONE (08:35)
[2020-02-02] MEDS ORDERED: SODIUM CHL 0.9% 50ML MIN-BAG+ 50 ML IVPB ONE (08:35)
[2020-02-02] MEDS: ARFORMOTEROL TARTRATE 15 MCG/2 ML NEB NEB SCH ×2 (08:56→20:28)
[2020-02-02] MEDS: IPRATROPIUM/ALBUTEROL 3 ML VIAL INH SCH ×5 (08:56→20:46)
[2020-02-02] MEDS ORDERED: cefTRIAXone SODIUM 1 GM in SODIUM CHL 0.9% 50ML MIN-BAG+ 50 ML IVPB SCH (09:00)
[2020-02-02] MEDS: ALBUTEROL INHALER 64 PUFF/8GM INH SCH ×5 (09:40→20:44)
[2020-02-02] MEDS: DEXAMETHASONE INJ 10 MG/ML VIAL IV SCH (09:43)
[2020-02-02] MEDS: AZITHROMYCIN IV 500 MG in SODIUM CHLORIDE 0.9% 250ML 250 ML IVPB SCH (09:44)
--- NOTE | 2020-02-02 09:48 | CT ---
Study: CT Chest. Indication: covid Technique: CT imaging of the chest obtained without intravenous administration of contrast. This exam was performed according to our departmental dose-optimization program, which includes automated exposure control, adjustment of the mA and/or kV according to patient size and/or use of iterative reconstruction technique. Comparison: None Findings: Atherosclerosis great vessels, aorta, and coronary arteries. Mild cardiomegaly with a tiny pericardial effusion. No pathologically enlarged lymphadenopathy. Extensive consolidation throughout the majority of the left lower lobe which appears partially collapsed. Less pronounced consolidation posterior aspect of the right lower lobe. These changes are concerning for pneumonia. Tiny bilateral pleural effusions. No pneumothorax. Degenerative changes of the spine noted. Subacute appearing nondisplaced midsternal fracture. Impression: Extensive consolidation consolidation and partial collapse left lower lobe with less pronounced consolidation posterior right lower lobe concerning for pneumonia. Tiny pleural effusions suspected as well. Subacute sternal fracture. Atherosclerosis. Mild cardiomegaly with a tiny pericardial effusion. Electronically signed by: Juan Luis Arce MD 02/02/2020 9:46 AM [facility] [facility] [employer] [facility]
[2020-02-02] MEDS: REMDESIVIR 100 MG in SODIUM CHLORIDE 0.9% 250ML 250 ML IVPB SCH (12:32)
[2020-02-02] MEDS ORDERED: VANCOMYCIN PER PHARMACY INJ SCH (13:00)
[2020-02-02] MEDS ORDERED: REMDESIVIR 200 MG in SODIUM CHLORIDE 0.9% 250ML 250 ML IVPB ONE (13:54)
[2020-02-02] MEDS ORDERED: CEFEPIME 2 GM VIAL ONE (13:56)
[2020-02-02] MEDS ORDERED: SODIUM CHL 0.9% 100ML MINI-BAG 100 ML IVPB ONE (13:57)
[2020-02-02] MEDS ORDERED: levoFLOXacin 750MG IV 750 MG in PREMIX BAG 1 BAG IVPB SCH (14:00)
[2020-02-02] MEDS: CEFEPIME 2 GM in SODIUM CHL 0.9% 100ML MINI-BAG 100 ML IVPB SCH (15:06)
[2020-02-02] MEDS ORDERED: VANCOMYCIN HCL INJ 1,000 MG VIAL IVPB ONE (15:29)
[2020-02-02] MEDS ORDERED: SODIUM CHLORIDE 0.9% 250ML 250 ML ONE (15:29)
[2020-02-02] MEDS ORDERED: VANCOMYCIN HCL INJ 500 MG VIAL ONE (15:29)
[2020-02-02] MEDS: VANCOMYCIN HCL INJ 1,000 MG, VANCOMYCIN HCL INJ 500 MG in SODIUM CHLORIDE 0.9% 250ML 25... IVPB SCH (16:18)
[2020-02-02] MEDS ORDERED: ATORVASTATIN 20 MG TAB PO ONE (19:32)
--- NOTE | 2020-02-02 20:05 | PN ---
SUPERVISING PHYSICIAN: Anjum West MD DATE: 02/02/20 SUBJECTIVE: The patient seems to be doing pretty good. He is very hard of hearing, but he is very interactive. He actually looks like he is feeling okay. He is maintaining his O2 saturations with nasal cannula. He was a little lethargic this morning, but once his O2 was turned down a little bit and he was allowed to have a little permissive hypoxia which is probably where he lives, he did improve his mentation. OBJECTIVE: VITAL SIGNS: Temperature 98.7, pulse 78, blood pressure 100/59, respirations 18, saturation 93% on nasal cannula at 3 liters. GENERAL: The patient is resting comfortably. He is not in any acute distress. He is alert. CHEST: Lung sounds are significantly diminished, more so on the left than the right. HEART: Regular rate and rhythm. ABDOMEN: Soft, nontender. Positive bowel sounds. EXTREMITIES: 1+ edema today. SKIN: Warm, pink and dry. NEUROLOGIC: Alert and oriented times three. LABORATORY: White count 6,700, hemoglobin 11.4, hematocrit 35.4, platelet count 110,000. Differential does show a left shift now. Coagulation studies show D- dimer up to 1800 from 1370 on admission. Blood gas analysis this morning did show he was acidotic, but CO2 was 96, but bicarb was 40. PO2 94, saturation 98% on 7 liters nasal cannula high flow. Chemistries today show sodium 140, potassium a little elevated at 5.3, creatinine. 147. Liver functions within normal limits. C-reactive protein 5.3. MICROBIOLOGY: Urine culture showed gram negative era. Blood cultures remain negative after 24 [address]. RADIOLOGY: CT of the chest this morning shows extensive consolidation and partial collapse of the left lower lobe with less pronounced consolidation in posterior right lobe, concerning for pneumonia. There is a tiny pleural effusion suspected as well. Subacute sternal fracture. Mild cardiomegaly with tiny pericardial effusion. ASSESSMENT: 1. COVID pneumonitis with bilateral lower lobe pneumonia. 2. Altered mental secondary to hypoxia and complicated by oxygen therapy with resulting hypercapnia, showing improvement with permissive hypoxia. O2 saturations are 92%. 3. Chronic obstructive pulmonary disease with healthcare acquired pneumonia, complicated by #1. 4. Urinary tract infection with gram negative era, cultures pending. 5. Congestive heart failure with mild diastolic dysfunction, ejection fraction of 60% on his previous echocardiogram in 2019 with no signs of current exacerbation. 6. Thrombocytopenia. 7. Benign prostatic hypertrophy. 8. Hyperlipidemia. 9. Coronary artery disease. 10. Hypertension. 11. Hypothyroidism. PLAN: We will continue treating for COVID as well as healthcare acquired pneumonia. I have switched his antibiotics to cefepime. We will leave him on azithromycin for the COVID, but we will put him on vancomycin and Levaquin considering his CT findings and it does not look like this is an acute finding. I have a feeling the COVID infection is incidental for the underlying pneumonia. He will be on Lovenox, Remdesivir and aggressive pulmonary hygiene as allowable. His ABG this morning did show he was over oxygenated given that he has advanced COPD. I had them turn his oxygen down to maintain his O2 saturations around 89% to 92% and he seems to be doing well with that. Once he was down in the 90s, he did wake up as I think he was over oxygenated initially. I did discuss with his power of city attorney, his son, and they are wishing to keep him as a full code at this point. I also informed him that if he does continue to progress well, he will stay here, but if he does show a decline acutely, certainly we will have to get him transferred. His prognosis is pretty poor as he has severe COPD, although at this point he seems to be doing okay. We will follow his labs closely. I have him on vancomycin per pharmacy protocol. His creatinine has gone up a little bit, but we will watch that closely. I anticipate his length of stay to be at least 3 to 7 days as he is quite frail and has a lot of comorbidities and severe chronic obstructive pulmonary disease. Again, if he does acutely worsen, we will have to get him transferred. Until then, we will continue to monitor and treat as needed. #[id number] [facility]
[2020-02-02] MEDS: ENOXAPARIN SODIUM 40 MG/0.4 ML SYG SUBCU SCH (20:12)
[2020-02-02] MEDS: SIMVASTATIN 20 MG TAB PO SCH (20:12)
[2020-02-02] MEDS ORDERED: IPRATROPIUM/ALBUTEROL 3 ML VIAL NEB ONE (20:42)
[2020-02-03] MEDS: CEFEPIME 2 GM in SODIUM CHL 0.9% 100ML MINI-BAG 100 ML IVPB SCH ×2 (03:45→15:16)
[2020-02-03] MEDS ORDERED: PANTOPRAZOLE SODIUM TAB 40 MG PO ONE (04:08)
[2020-02-03] MEDS: LEVOTHYROXINE SODIUM 0.112 MG, LEVOTHYROXINE SODIUM 0.025 MG PO SCH ×2 (06:08)
[2020-02-03] MEDS: PANTOPRAZOLE SODIUM TAB 40 MG PO SCH (06:08)
--- NOTE | 2020-02-03 06:55 | RAD ---
EXAM: XR Chest, 1 View CLINICAL HISTORY: The patient is 79 years old and is Male; covid TECHNIQUE: Frontal view of the chest. COMPARISON: Chest radiograph February 02, 2020 FINDINGS: LUNGS: Improved aeration of the left lower lobe is noted. Patchy interstitial opacities likely within left lower lobe are present. PLEURAL SPACE: Unremarkable. No pneumothorax. HEART: The cardiac silhouette is enlarged. MEDIASTINUM: Unremarkable. BONES/JOINTS: Unremarkable. VASCULATURE: Enlargement of the central vasculature is present. IMPRESSION: Improved aeration of the left lower lobe with persistent interstitial opacity in the left lower lobe. Electronically signed by: Dennise Queen MD 02/03/2020 6:54 AM [facility]
[2020-02-03] MEDS: TAMSULOSIN 0.4 MG CAP PO SCH (08:12)
[2020-02-03] MEDS: FINASTERIDE 5 MG TAB PO SCH (08:12)
[2020-02-03] MEDS: BIFIDOBACTERIUM INFANTIS 4 MG CAP PO SCH (08:12)
[2020-02-03] MEDS: guaiFENesin ER TAB 600 MG TAB PO SCH ×2 (08:12→21:15)
[2020-02-03] MEDS: DEXAMETHASONE INJ 10 MG/ML VIAL IV SCH (08:12)
[2020-02-03] MEDS: ASPIRIN (ENTERIC COATED) 81 MG TAB PO SCH (08:12)
[2020-02-03] MEDS: ISOSORBIDE MONONITRATE (IMDUR) 30 MG TAB PO SCH (08:12)
[2020-02-03] MEDS: REMDESIVIR 100 MG in SODIUM CHLORIDE 0.9% 250ML 250 ML IVPB SCH (08:13)
[2020-02-03] MEDS: POTASSIUM CHLORIDE 10 MEQ TAB PO SCH (08:19)
[2020-02-03] MEDS: IPRATROPIUM/ALBUTEROL 3 ML VIAL INH SCH ×4 (08:25→20:36)
[2020-02-03] MEDS: ARFORMOTEROL TARTRATE 15 MCG/2 ML NEB NEB SCH ×2 (08:25→20:36)
[2020-02-03] MEDS: AZITHROMYCIN IV 500 MG in SODIUM CHLORIDE 0.9% 250ML 250 ML IVPB SCH (09:17)
[2020-02-03] MEDS: ALBUTEROL INHALER 64 PUFF/8GM INH SCH ×4 (10:50→20:36)
[2020-02-03] MEDS: VANCOMYCIN HCL INJ 1,000 MG, VANCOMYCIN HCL INJ 500 MG in SODIUM CHLORIDE 0.9% 250ML 25... IVPB SCH (15:30)
--- NOTE | 2020-02-03 18:49 | PN ---
SUPERVISING PHYSICIAN: Anjum West MD DATE: 02/03/20 SUBJECTIVE: The patient is much improved today as far as his alertness. In fact, he asked me why he was here because he was feeling so good. His desaturations have been noted, but he is staying in the mid-80s when he does come off oxygen and mid-90s when he is on oxygen, which I think is pretty close to his baseline levels. He has not had any complaints of chest pain, nausea, vomiting or diarrhea. OBJECTIVE: VITAL SIGNS: Temperature 97.8, pulse 78, blood pressure 120/79, respirations 18, saturation anywhere from 88% to 93% on nasal cannula at 3 liters. GENERAL: The patient is resting comfortably. He is not in any acute distress. He is alert. CHEST: Lung sounds are significantly diminished, more so on the left than the right. HEART: Regular rate and rhythm. ABDOMEN: Soft, nontender. Positive bowel sounds. EXTREMITIES: 1+ edema today. SKIN: Warm, pink and dry. NEUROLOGIC: Alert and oriented times three. LABORATORY: Hemoglobin 10.5, hematocrit 31.9, white count stable at 6,100, platelet count 105,000. Differential does show a left shift. Coagulation studies show D-dimer down to 998 and fibrinogen down to 411. PTT remains within normal limits. Chemistries show improved potassium down to 5.1. Carbon dioxide is down to 34 compared to 39 on admission and 36 yesterday. Creatinine now normalized to 1.3. BUN a little elevated at 44. Calcium 8.2. Liver functions within normal limits. Troponin 0.02 today. C-reactive protein fairly stable at 5.4. MICROBIOLOGY: Final urine culture did show Pseudomonas aeruginosa that was resistant to cephazolin, but sensitive to cefepime and fluoroquinolones.Blood cultures remain negative after 48 hours. RADIOLOGY: Chest x-ray this morning per radiologic interpretation shows improved aeration to left lower lobe with persistent interstitial opacity in the left lower lobe. ASSESSMENT: 1. COVID pneumonitis with secondary left lower lobe pneumonia, showing improvement with cefepime, vancomycin and Levaquin. 2. Altered mental secondary to hypoxia and complicated by oxygen therapy, now resolved with permissive hypoxia with O2 saturations remaining between 88% and 92%, which is the patient's baseline. 3. Chronic obstructive pulmonary disease with healthcare acquired pneumonia, complicated by #1, showing improvement with treatment. 4. Urinary tract infection secondary to Pseudomonas aeruginosa, sensitive to cefepime and fluoroquinolones. 5. Congestive heart failure with mild diastolic dysfunction, ejection fraction of 60% on his previous echocardiogram in 2019 with no signs of current exacerbation. 6. Thrombocytopenia. 7. Benign prostatic hypertrophy. 8. Hyperlipidemia. 9. Coronary artery disease. 10. Hypertension. 11. Hypothyroidism. PLAN: The patient will continue with current treatment plan, fairly aggressive with azithromycin, but cover with cefepime, vancomycin and Levaquin given his underlying pneumonia that I think was probably prominent and present prior to his COVID infection. He is fairly stable. He is maintaining his O2 around his baseline levels. He remains on Remdesivir, Lovenox and aggressive pulmonary hygiene. He is on coverage for the urinary tract infection with cefepime. I anticipate if he does as well as he is doing at this point and his numbers trend down that he hopefully can discharge within the 24 to 48 hours and given that he is at [facility], we may be able to continue some of his IV antibiotics if we need to or transition him to oral medications depending on how he does he does clinically. Until that point, we will continue to monitor his labs and treat as needed. #[id number] [facility]
[2020-02-03] MEDS: SIMVASTATIN 20 MG TAB PO SCH (21:14)
[2020-02-03] MEDS: ENOXAPARIN SODIUM 40 MG/0.4 ML SYG SUBCU SCH (21:15)
[2020-02-04] MEDS: CEFEPIME 2 GM in SODIUM CHL 0.9% 100ML MINI-BAG 100 ML IVPB SCH ×2 (03:50→15:25)
[2020-02-04] MEDS: ALBUTEROL SULFATE 2.5 MG/3 ML VIAL NEB PRN ×2 (04:30→22:15)
[2020-02-04] MEDS: LEVOTHYROXINE SODIUM 0.112 MG, LEVOTHYROXINE SODIUM 0.025 MG PO SCH ×2 (05:59)
[2020-02-04] MEDS: PANTOPRAZOLE SODIUM TAB 40 MG PO SCH (05:59)
[2020-02-04] MEDS: IPRATROPIUM/ALBUTEROL 3 ML VIAL INH SCH ×4 (08:20→20:45)
[2020-02-04] MEDS: ARFORMOTEROL TARTRATE 15 MCG/2 ML NEB NEB SCH ×2 (08:20→20:45)
[2020-02-04] MEDS: ALBUTEROL INHALER 64 PUFF/8GM INH SCH ×4 (08:28→20:45)
[2020-02-04] MEDS: POTASSIUM CHLORIDE 10 MEQ TAB PO SCH (09:01)
[2020-02-04] MEDS: FINASTERIDE 5 MG TAB PO SCH (09:01)
[2020-02-04] MEDS: ISOSORBIDE MONONITRATE (IMDUR) 30 MG TAB PO SCH (09:01)
[2020-02-04] MEDS: ASPIRIN (ENTERIC COATED) 81 MG TAB PO SCH (09:01)
[2020-02-04] MEDS: BIFIDOBACTERIUM INFANTIS 4 MG CAP PO SCH ×2 (09:01→20:07)
[2020-02-04] MEDS: DEXAMETHASONE INJ 10 MG/ML VIAL IV SCH (09:01)
[2020-02-04] MEDS: guaiFENesin ER TAB 600 MG TAB PO SCH ×2 (09:01→20:06)
[2020-02-04] MEDS: REMDESIVIR 100 MG in SODIUM CHLORIDE 0.9% 250ML 250 ML IVPB SCH (09:02)
[2020-02-04] MEDS: TAMSULOSIN 0.4 MG CAP PO SCH (09:02)
[2020-02-04] MEDS: AZITHROMYCIN IV 500 MG in SODIUM CHLORIDE 0.9% 250ML 250 ML IVPB SCH (09:28)
--- NOTE | 2020-02-04 13:14 | PN ---
SUPERVISING PHYSICIAN: Anjum West MD DATE: 02/04/20 SUBJECTIVE: The patient is lying in bed. He is asleep. It is reported by nursing that he has not slept for several days, but has slept well over the last 24 hours. He is very hard of hearing, but he denies shortness of breath, nausea or vomiting. OBJECTIVE: VITAL SIGNS: Temperature 98.1, heart rate 75, blood pressure 127/74, respiratory rate 20, O2 saturation 94% on 3 liters nasal cannula. RESPIRATORY: Diminished throughout with a few scattered rhonchi. CARDIAC: Regular rate and rhythm. NEUROLOGIC: Awake, alert, but very hard of hearing. MICROBIOLOGY: Preliminary blood cultures show no growth after 48 hours. ASSESSMENT: 1. COVID pneumonitis with secondary left lower lobe pneumonia, showing improvement with cefepime, vancomycin and Levaquin. 2. Altered mental secondary to hypoxia and complicated by oxygen therapy, now resolved with permissive hypoxia with O2 saturations remaining between 88% and 92%, which is the patient's baseline. 3. Chronic obstructive pulmonary disease with healthcare acquired pneumonia, complicated by #1, showing improvement with treatment. 4. Urinary tract infection secondary to Pseudomonas aeruginosa, sensitive to cefepime and fluoroquinolones. 5. Congestive heart failure with mild diastolic dysfunction, ejection fraction of 60% on his previous echocardiogram in 2019 with no signs of current exacerbation. 6. Thrombocytopenia. 7. Benign prostatic hypertrophy. 8. Hyperlipidemia. 9. Coronary artery disease. 10. Hypertension. 11. Hypothyroidism. PLAN: We will continue present supportive care including his antibiotic therapy. At this point, due to his extreme shortness of breath, we will continue his Jimenez catheter and either order bladder training or we will need to send him back to the shelter with instructions for discontinuance. I have ordered routine COVID lab for in the morning. Hopefully, he can be discharged in the next 24 to 48 hours. #[id number] [facility]
[2020-02-04] MEDS: IV SET AND CAP CHANGE INJ INJ SCH (16:47)
[2020-02-04] MEDS: VANCOMYCIN HCL INJ 1,000 MG in SODIUM CHLORIDE 0.9% 250ML 250 ML IVPB SCH (16:47)
[2020-02-04] MEDS: VANCOMYCIN HCL INJ 1,000 MG, VANCOMYCIN HCL INJ 500 MG in SODIUM CHLORIDE 0.9% 250ML 25... IVPB SCH (17:32)
[2020-02-04] MEDS ORDERED: diphenhydrAMINE HCL 25 MG CAP PO PRN (19:52)
[2020-02-04] MEDS: ENOXAPARIN SODIUM 40 MG/0.4 ML SYG SUBCU SCH (20:05)
[2020-02-04] MEDS: SIMVASTATIN 20 MG TAB PO SCH (20:05)
[2020-02-05] MEDS: CEFEPIME 2 GM in SODIUM CHL 0.9% 100ML MINI-BAG 100 ML IVPB SCH (03:47)
[2020-02-05] MEDS: VANCOMYCIN HCL INJ 1,000 MG in SODIUM CHLORIDE 0.9% 250ML 250 ML IVPB SCH (05:02)
[2020-02-05] MEDS: LEVOTHYROXINE SODIUM 0.112 MG, LEVOTHYROXINE SODIUM 0.025 MG PO SCH ×2 (07:07)
[2020-02-05] MEDS: PANTOPRAZOLE SODIUM TAB 40 MG PO SCH (07:07)
[2020-02-05] MEDS: REMDESIVIR 100 MG in SODIUM CHLORIDE 0.9% 250ML 250 ML IVPB SCH (08:02)
[2020-02-05] MEDS: DEXAMETHASONE INJ 10 MG/ML VIAL IV SCH (08:17)
[2020-02-05] MEDS: ASPIRIN (ENTERIC COATED) 81 MG TAB PO SCH (08:55)
[2020-02-05] MEDS: BIFIDOBACTERIUM INFANTIS 4 MG CAP PO SCH (08:55)
[2020-02-05] MEDS: guaiFENesin ER TAB 600 MG TAB PO SCH (08:56)
[2020-02-05] MEDS: ISOSORBIDE MONONITRATE (IMDUR) 30 MG TAB PO SCH (08:56)
[2020-02-05] MEDS: POTASSIUM CHLORIDE 10 MEQ TAB PO SCH (08:57)
[2020-02-05] MEDS: FINASTERIDE 5 MG TAB PO SCH (08:57)
[2020-02-05] MEDS: TAMSULOSIN 0.4 MG CAP PO SCH (08:57)
[2020-02-05] MEDS: AZITHROMYCIN IV 500 MG in SODIUM CHLORIDE 0.9% 250ML 250 ML IVPB SCH (09:02)
[2020-02-05] MEDS: ALBUTEROL INHALER 64 PUFF/8GM INH SCH (09:45)
[2020-02-05] MEDS: ARFORMOTEROL TARTRATE 15 MCG/2 ML NEB NEB SCH (09:45)
[2020-02-05] MEDS: IPRATROPIUM/ALBUTEROL 3 ML VIAL INH SCH (09:45)
[2020-02-05 10:58] VITALS: BP 127/84; TEMP 98.5; O2SAT 98
--- NOTE | 2020-02-05 14:56 | DS ---
SUPERVISING PHYSICIAN: Anjum West MD DISCHARGE DIAGNOSIS: 1. COVID pneumonitis with secondary left lower lobe pneumonia, showing improvement with cefepime, vancomycin and Levaquin. 2. Altered mental secondary to hypoxia and complicated by oxygen therapy, now resolved with permissive hypoxia with O2 saturations remaining between 88% and 92%, which is the patient's baseline. 3. Chronic obstructive pulmonary disease with healthcare acquired pneumonia, complicated by #1, showing improvement with treatment. 4. Urinary tract infection secondary to Pseudomonas aeruginosa, sensitive to cefepime and fluoroquinolones. 5. Congestive heart failure with mild diastolic dysfunction, ejection fraction of 60% on his previous echocardiogram in 2019 with no signs of current exacerbation. 6. Thrombocytopenia. 7. Benign prostatic hypertrophy. 8. Hyperlipidemia. 9. Coronary artery disease. 10. Hypertension. 11. Hypothyroidism. HISTORY OF PRESENT ILLNESS: This is a 79-year-old male patient who lives at [facility] who came from the alf with altered mental status and decreased level of consciousness as well as hypoxia and increased work of breathing. They had an outbreak of coronavirus at his nursing facility. He had no reported fevers, but his oxygen saturation was in the 80s. Initially, he was quite obtunded, but after receiving supplemental oxygen as well as multiple breathing treatments, he became more awake and alert. He is very hard of hearing. He tested positive for COVID-19. His initial vital signs were temperature of 98.6 with heart rate of 89, blood pressure 121/63, respiratory rate 28, oxygen saturation 94%. Lab studies showed WBC of 5.9 with hemoglobin 11.5, hematocrit 36.1. Platelet count slightly low at 116,000. Fibrinogen was 395, D-dimer 1,370. Electrolytes were basically within normal limits. His lactic acid was 1.1, LD 194, C-reactive protein 2.4, TSH 25.88. Urinalysis showed small amount of urine blood with a large amount of urine leukocyte esterase, 5 to 10 urine RBCs and 20 to 30 urine WBCs, 3+ urine bacteria. Blood cultures were done, urine cultures were ordered. COVID swab per PCR was positive. Initial chest x-ray showed cardiomegaly. He was given antibiotics, Decadron and breathing treatments in the Emergency Room and admitted to the Floor in stable condition. As he was being transferred over to the bed, his oxygen was taken off for a minute or so and he did drop to 77%. He required a nonrebreather and then high-flow oxygen to rebound to the low 90s. He was quite tachypneic and sounded very wet. Another chest x-ray was ordered as well as additional Decadron. he was given some extra breathing treatments including using a nebulizer with a COVID mask. His followup showed no pulmonary opacities identified. Please note that lungs may initially appear clear in the first few days of COVID-19 infection and chest radiographs have poor sensitivity for detection of subtle ground glass opacities. HOSPITAL COURSE: The patient was admitted to the hospital. The pneumonia guidelines and COVID protocol were initiated. He received Remdesivir for 5 days, Decadron, azithromycin, ceftriaxone and Lovenox. He had aggressive pulmonary hygiene including scheduled DuoNeb and p.r.n. albuterol. His home medications were restarted. He had a proton pump inhibitor for ulcer prophylaxis. The ceftriaxone should cover the urinary tract infection. His vital signs and laboratory value slowly improved. His antibiotics were switched from ceftriaxone to cefepime and adding vancomycin and Levaquin due to his CT findings and the possibility of healthcare acquired pneumonia. He maintained his O2 satisfactory from 89% to 92%. At one point, he became very lethargic and unresponsive, but it was found that his oxygen had been up and after decreasing the flow of oxygen he was much more awake and alert. His CO2 per ABG was in the 90s. Today, he will be discharged to [facility] in [place], [place], due to [facility] not having a COVID unit. LABORATORY: WBCs remained stable at 4.8 with hemoglobin 9.8, hematocrit 30. He had a left shift on his differential. D-dimer went up to 1,800 and today is 762. Fibrinogen was as high as 442 and is now 411. His pCO2 per ABG was 96. Sodium was stable at 138. Potassium did go up to 5.3 and is now 4.5. BUN was as high as 44 and creatinine as high as 1.47, but is now 1.21. Calcium slightly low at 8.3. Magnesium 1.9. Alkaline phosphatase low at 27. LD initially was 194 and is now 145. C-reactive protein is 5.4. MICROBIOLOGY: Urine culture was cancelled. Preliminary blood culture showed no growth after 4 days. His initial urine culture showed Pseudomonas aeruginosa and was sensitive to cefepime. RADIOLOGY: His chest CT showed extensive consolidation and partial collapse of left lower lung with less pronounced consolidation, posterior right lower lobe concerning for pneumonia. Tiny pleural effusion suspected as well. Subacute sternal fracture with atherosclerosis, mild cardiomegaly with tiny pericardial effusion. His final chest x-ray showed improved aeration of the left lower lobe with persistent interstitial opacity in the left lower lobe. DISCHARGE PLAN: The patient will be discharged to [facility], the [facility]. He is to resume his previous diet and increase his activity as tolerated. He is to followup with Dr. Asher within 1 to 2 weeks. In addition to his routine medications, he is to continue on Align, cefdinir, dexamethasone, Eliquis, guaifenesin and azithromycin. He is to return to the hospital or followup with Dr. Asher for any problems or complications. DISCHARGE MEDICATIONS: 1. Budesonide. 2. Imdur. 3. Tamsulosin. 4. Finasteride. 5. Brovana. 6. Potassium chloride. 7. Simvastatin. 8. Levothyroxine. 9. Albuterol sulfate. 10. Align. 11. Cefdinir. 12. Dexamethasone. 13. Eliquis. 14. Guaifenesin. 15. Azithromycin. #[id number] [facility]
== END 2020-02-05 11:45 | DRG 177 ==
LOC: ER 12:29 → OBSVTOIN 14:39 → MS 14:39
PROVIDERS: ADMIT Nurse Practitioner Acute Care; ATTEND Nurse Practitioner Acute Care
PROC: XW033E5 Introduction of Remdesivir Anti-infective into Peripheral Vein, Percutaneous Approach, New Technology Group 5 (ICD-10-PCS; principal; 2020-02-01)
DX: U07.1 COVID-19 (principal); J12.89 Other viral pneumonia; J44.0 Chronic obstructive pulmonary disease with (acute) lower respiratory infection; N39.0 Urinary tract infection, site not specified; I50.32 Chronic diastolic (congestive) heart failure; G93.1 Anoxic brain damage, not elsewhere classified; R09.02 Hypoxemia; Y95 Nosocomial condition; N40.0 Benign prostatic hyperplasia without lower urinary tract symptoms; E78.5 Hyperlipidemia, unspecified; F03.90 Unspecified dementia, unspecified severity, without behavioral disturbance, psychotic disturbance, mood disturbance, and anxiety; I25.10 Atherosclerotic heart disease of native coronary artery without angina pectoris; I11.0 Hypertensive heart disease with heart failure; E03.9 Hypothyroidism, unspecified; B96.5 Pseudomonas (aeruginosa) (mallei) (pseudomallei) as the cause of diseases classified elsewhere; H91.90 Unspecified hearing loss, unspecified ear; Z88.2 Allergy status to sulfonamides; Z88.5 Allergy status to narcotic agent; Z79.82 Long term (current) use of aspirin; Z79.899 Other long term (current) drug therapy

== ENCOUNTER 2020-02-08 05:23 | Emergency (ER) | payer MEDICARE, OTHER ==
--- NOTE | 2020-02-08 05:41 | ED.PDOC ---
History of Present Illness - General Source: patient, RN notes reviewed, Vital Signs reviewed, EMS notes reviewed, RN/MD, EMS, prison records, old records Exam Limitations: no limitations - History of Present Illness Initial Comments: 79 yo malw ith hx of COPD on 3 L oxygen at home comes in from prison with decrease responsiveness and hypoxia. Patient diagnosed with covid one week ago. patient was discharged 3 days ago after a 5 day admission for covid penumonia, hypoxia, uti,ams. 2 week prior patient was in [facility]? and diagnosed with complete LAD obstruction, recommend bypass, but patient was not deemed healthy enough for bypass surgery. It was reported that he did have some collateral flow. <Maryanne Huynh - Last Filed: 02/08/20 06:52> - General Source: patient, RN notes reviewed, Vital Signs reviewed, EMS notes reviewed, RN/MD - Dr. Huynh, EMS, prison records, old records - History of Present Illness Initial Comments: Patient is a 79-year-old white male who presents with complaints of worsening confusion and hypoxia. Patient has a history of COPD and is normally on 3 L of oxygen via nasal cannula at home. Patient arrives from prison via EMS with decreased responsiveness and hypoxia per EMS. His oxygen saturation was low 80% on 2 L. Patient was diagnosed with Covid 1 week ago and was discharged from the hospital 2 to 3 days ago. Today patient is lethargic, mildly confused and with increased work of breathing. Timing/Duration: 1 week, changing over time Severity: moderate Activities at Onset: none Possible Cause: chronic episodes Improving Factors: medication - Oxygen Worsening Factors: movement Respiratory Risk Factors: other - hx of copd <Greg Ogden - Last Filed: 02/08/20 08:15> - General Chief Complaint: General Time Seen by Provider: 02/08/20 05:29 - History of Present Illness Allergies/Adverse Reactions: Allergies Hydromorphone [From Dilaudid] Allergy (Severe, Verified 02/01/20 15:51) sob Sulfa Antibiotics Allergy (Intermediate, Verified 02/08/20 05:43) Rash itching Home Medications: Ambulatory Orders Budesonide (Inhalation) [Budesonide] 0.25 mg INH DAILY 10/23/18 Isosorbide Mononitrate [Imdur] 30 mg PO DAILY 12/25/18 Arformoterol Tartrate [Brovana] 15 mcg INH BID 12/26/19 Finasteride [Proscar] 5 mg PO DAILY 12/26/19 Levothyroxine Sodium 125 mcg PO QAM 12/26/19 Potassium Chloride [K-Tab] 10 meq PO DAILY 12/26/19 Simvastatin 40 mg PO QPM 12/26/19 Tamsulosin HCl [Flomax] 0.4 mg PO DAILY 12/26/19 Albuterol Sulfate Nebs [Proventil Nebs] 2.5 mg INH Q4H PRN 02/01/20 Aspirin [Aspirin Adult Low Dose] 81 mg PO DAILY 02/01/20 Apixaban [Eliquis] 5 mg PO BID #60 tab 02/05/20 Azithromycin Tab [Zithromax Tab] 250 mg PO QD #3 tab 02/05/20 Bifidobacterium Infantis [Align] 4 mg PO BID cap 02/05/20 Cefdinir 300 mg PO BID #14 capsule 02/05/20 Dexamethasone Tab [Decadron Tab] 4 mg PO DAILY #5 tab 02/05/20 guaiFENesin ER TAB [Mucinex Tab] 1,200 mg PO BID tab 02/05/20 Review of Systems - Review of Systems Constitutional: States: malaise. Denies: chills, fever EENTM: Denies: blurred vision, throat pain, mouth pain Respiratory: States: cough, short of breath. Denies: stridor Cardiology: Denies: chest pain, palpitations Gastrointestinal/Abdominal: Denies: abdominal pain, diarrhea, nausea Genitourinary: Denies: frequency, hematuria Musculoskeletal: Denies: joint pain, muscle pain Skin: Denies: rash Neurological: Denies: headache, numbness, paresthesia, weakness Endocrine: Denies: unexplained weight gain, unexplained weight loss Hematologic/Lymphatic: Denies: easy bleeding, easy bruising <Maryanne Huynh - Last Filed: 02/08/20 06:52> - Review of Systems Constitutional: States: see HPI, malaise, weakness. Denies: chills, fever EENTM: States: no symptoms reported. Denies: eye pain, blurred vision, double vision Respiratory: States: see HPI, cough, short of breath. Denies: stridor Cardiology: States: no symptoms reported. Denies: chest pain, palpitations, syncope Gastrointestinal/Abdominal: States: no symptoms reported. Denies: abdominal pain, diarrhea, nausea Genitourinary: States: no symptoms reported. Denies: frequency, hematuria Musculoskeletal: States: no symptoms reported. Denies: back pain, joint pain, neck pain Skin: States: no symptoms reported. Denies: change in color, rash Neurological: States: no symptoms reported. Denies: headache, numbness, paresthesia, tingling, tremors, weakness Endocrine: States: no symptoms reported. Denies: increased hunger, increased thirst, increased urine Hematologic/Lymphatic: States: no symptoms reported. Denies: blood clots, easy bleeding, easy bruising All other Systems: No Change from Baseline <Greg Ogden - Last Filed: 02/08/20 08:15> Past Medical History (General) - Patient Medical History Hx Seizures: No Hx Stroke: No Hx Dementia: Yes - forgetful Hx Asthma: No Hx of COPD: Yes Hx Cardiac Disorders: Yes Hx Congestive Heart Failure: No Hx Pacemaker: No Hx Hypertension: Yes Hx Thyroid Disease: Yes Hx Diabetes: No Hx Gastroesophageal Reflux: No Hx Renal Disease: Yes Hx Cancer: No Hx of HIV: No Hx Hepatitis C: No Hx MRSA: No MRSA Source:: Blood - Vaccination History Hx Tetanus, Diphtheria Vaccination: Yes Hx Influenza Vaccination: Yes Hx Pneumococcal Vaccination: Yes - Social History Hx Tobacco Use: Yes Hx Chewing Tobacco Use: No Hx Alcohol Use: No Hx Substance Use: No Hx Substance Use Treatment: No Hx Depression: No Hx Physical Abuse: No Hx Emotional Abuse: No Hx Suspected Abuse: No - Female History Patient : No <Maryanne Huynh - Last Filed: 02/08/20 06:52> Family Medical History - Family History Father Family History: Unknown Living Status: <Maryanne Huynh - Last Filed: 02/08/20 06:52> Physical Exam - Physical Exam General Appearance: Comfortable, No apparent distress, Lethargic, Well Developed, Well Groomed, Well Hydrated, Well Nourished Eyes, Ears, Nose, Throat Exam: PERRL/EOMI, normal ENT inspection, TMs normal Neck: non-tender, full range of motion, supple, normal inspection Respiratory: chest non-tender, lungs clear, normal breath sounds, no respiratory distress, no accessory muscle use Cardiovascular/Chest: normal peripheral pulses, regular rate, rhythm, no edema, no gallop, no JVD, no murmur Peripheral Pulses: radial,right: 2+, radial,left: 2+ Gastrointestinal/Abdominal: normal bowel sounds, non tender, soft Rectal Exam: deferred Extremity: normal range of motion, non-tender, normal inspection, no pedal edema, no calf tenderness, normal capillary refill Neurologic: no motor/sensory deficits, normal mood/affect Skin Exam: normal color, warm/dry <Maryanne Huynh - Last Filed: 02/08/20 06:52> - Physical Exam General Appearance: Agitated, Anxious, Lethargic, Well Developed, Well Groomed, Well Hydrated, Well Nourished Eyes, Ears, Nose, Throat Exam: PERRL/EOMI, normal ENT inspection, pharynx normal Neck: non-tender, full range of motion, supple, normal inspection Respiratory: chest non-tender, respiratory distress - mild, decreased breath sounds - diffusely throughout, rhonchi Cardiovascular/Chest: normal peripheral pulses, regular rate, rhythm, no edema, no gallop, no JVD, no murmur Peripheral Pulses: radial,right: 2+, radial,left: 2+ Gastrointestinal/Abdominal: normal bowel sounds, non tender, soft Rectal Exam: deferred Extremity: normal range of motion, non-tender, normal inspection, no pedal edema, no calf tenderness, normal capillary refill Neurologic: no motor/sensory deficits, normal mood/affect Skin Exam: normal color, warm/dry Lymphatic: no adenopathy <Greg Ogden - Last Filed: 02/08/20 08:15> Progress - Progress Progress: 02/08/20 06:53 patient awakes to voice, GCS 10. Given duoneb, dexamethasone, remd, cefepime. ABG shows resp acidosis. Will try bipap to help with acidosis. Pending remaining blood work. Plan to transfer, as we have no covid beds. no need for intubation at this time. Transfer to oncoming physician. - EKG/XRAY/CT EKG: Sinus Comments: 62, normal intervals, nonspecific st/twave changes XRAY: chest - left lower lobe infiltrate. <Maryanne Huynh - Last Filed: 02/08/20 06:52> - Progress Progress: Differential diagnosis: COPD exacerbation, pneumonia, Covid, viral URI among others. 02/08/20 07:48 Patient is resting quietly. BiPAP has improved patient's respiratory issues. Lab work is relatively unremarkable. EKG does not show any acute ischemia. Chest x-ray shows improved left lower lobe pneumonia. Plan on transfer for admission secondary to COPD exacerbation. I discussed the plan of care with the patient he voices understanding and agreement. Currently looking for a transfer hospital to accept. 02/08/20 08:13 Patient accepted for transfer by Dr. Pringle in the ED at [facility], plan on transfer for admission at this time. I discussed the plan of care with the patient he voices understanding and agreement with the plan of care. Greg Ogden M.D. #[id number] - Results/Orders Results/Orders: EXAM: XR Chest, 1 View CLINICAL HISTORY: The patient is 79 years old and is Male; covid TECHNIQUE: Frontal view of the chest. COMPARISON: Chest radiograph February 03, 2020 FINDINGS: LUNGS: Mild subtle interstitial prominence. Improved interstitial opacity within left lower lobe is noted. Linear atelectasis/scarring in the right lung base is noted. PLEURAL SPACE: Unremarkable. No pneumothorax. HEART: The cardiac silhouette is enlarged. MEDIASTINUM: Unremarkable. BONES/JOINTS: Unremarkable. VASCULATURE: Atherosclerosis of the aorta is present. Prominence of central vasculature is noted in stable. IMPRESSION: Improved left lower lobe infiltrate. Otherwise, stable chest. Electronically signed by: Dennise Queen MD 02/08/2020 6:05 AM 02/08/20 05:30 EKG STAT 02/08/20 05:49 URINE CULTURE W/COLONY COUNT Stat 02/08/20 05:50 BLOOD CULTURE Stat 02/08/20 09:00 Remdesivir 200 mg Sodium Chloride 0.9% 250Ml [NS 250ml] 250 ml IVPB DAILY Laboratory Results - last 24 hr 02/08/20 02/08/20 02/08/20 05:35 05:45 05:45 WBC 4.8 RBC 4.21 L Hgb 11.8 L Hct 37.1 L MCV 88.1 MCH 28.1 MCHC 31.9 L RDW 16.2 H Plt Count 160 MPV 7.7 Absolute Neuts (auto) Not Reportable Absolute Lymphs (auto) Not Reportable Absolute Monos (auto) Not Reportable Absolute Eos (auto) Not Reportable Neutrophils % Not Reportable Neutrophils % (Manual) 69.0 Lymphocytes % Not Reportable Lymphocytes % (Manual) 26.0 Monocytes % Not Reportable Monocytes % (Manual) 5.0 Eosinophils % Not Reportable Basophils % Not Reportable PT INR PTT (SP) 24.6 D-Dimer, Quantitative 1650.0 H* pCO2 104 H* pO2 57 L HCO3 42.1 ABG pH 7.214 L* ABG O2 Saturation 89.3 L ABG Base Excess 10.6 ABG Deoxyhemoglobin 10.4 H Oxyhemoglobin % 87.2 L Carboxyhemoglobin % 1.5 Methemoglobin % Sat 0.9 Calc Total Hemoglobin 11.9 L Sodium Potassium Chloride Carbon Dioxide Anion Gap BUN Creatinine BUN/Creatinine Ratio Random Glucose Serum Osmolality Calcium Magnesium Total Bilirubin AST ALT Alkaline Phosphatase LD Total Creatine Kinase Troponin I C-Reactive Protein B-Natriuretic Peptide Serum Total Protein Albumin Globulin Albumin/Globulin Ratio Urine Color Urine Appearance Urine pH Ur Specific [place] Urine Protein Urine Glucose (UA) Urine Ketones Urine Blood Urine Nitrite Urine Bilirubin Urine Urobilinogen Ur Leukocyte Esterase Urine RBC Urine WBC Ur Epithelial Cells Urine Bacteria Urine Mucus 02/08/20 02/08/20 02/08/20 05:45 05:45 05:45 WBC RBC Hgb Hct MCV MCH MCHC RDW Plt Count MPV Absolute Neuts (auto) Absolute Lymphs (auto) Absolute Monos (auto) Absolute Eos (auto) Neutrophils % Neutrophils % (Manual) Lymphocytes % Lymphocytes % (Manual) Monocytes % Monocytes % (Manual) Eosinophils % Basophils % PT 10.4 INR 1.05 PTT (SP) D-Dimer, Quantitative pCO2 pO2 HCO3 ABG pH ABG O2 Saturation ABG Base Excess ABG Deoxyhemoglobin Oxyhemoglobin % Carboxyhemoglobin % Methemoglobin % Sat Calc Total Hemoglobin Sodium 141 Potassium 4.9 Chloride 96 L Carbon Dioxide 37 H Anion Gap 12.9 BUN 35 H Creatinine 1.23 BUN/Creatinine Ratio 28.5 H Random Glucose 88 Serum Osmolality 288.6 Calcium 8.4 Magnesium 2.0 Total Bilirubin 0.7 AST 12 ALT 17 Alkaline Phosphatase 35 L LD Total 160 Creatine Kinase 28 L Troponin I 0.03 C-Reactive Protein 0.9 B-Natriuretic Peptide 86.2 Serum Total Protein 5.9 L Albumin 3.2 Globulin 2.7 Albumin/Globulin Ratio 1.2 Urine Color Urine Appearance Urine pH Ur Specific [place] Urine Protein Urine Glucose (UA) Urine Ketones Urine Blood Urine Nitrite Urine Bilirubin Urine Urobilinogen Ur Leukocyte Esterase Urine RBC Urine WBC Ur Epithelial Cells Urine Bacteria Urine Mucus 02/08/20 05:49 WBC RBC Hgb Hct MCV MCH MCHC RDW Plt Count MPV Absolute Neuts (auto) Absolute Lymphs (auto) Absolute Monos (auto) Absolute Eos (auto) Neutrophils % Neutrophils % (Manual) Lymphocytes % Lymphocytes % (Manual) Monocytes % Monocytes % (Manual) Eosinophils % Basophils % PT INR PTT (SP) D-Dimer, Quantitative pCO2 pO2 HCO3 ABG pH ABG O2 Saturation ABG Base Excess ABG Deoxyhemoglobin Oxyhemoglobin % Carboxyhemoglobin % Methemoglobin % Sat Calc Total Hemoglobin Sodium Potassium Chloride Carbon Dioxide Anion Gap BUN Creatinine BUN/Creatinine Ratio Random Glucose Serum Osmolality Calcium Magnesium Total Bilirubin AST ALT Alkaline Phosphatase LD Total Creatine Kinase Troponin I C-Reactive Protein B-Natriuretic Peptide Serum Total Protein Albumin Globulin Albumin/Globulin Ratio Urine Color Yellow Urine Appearance Sl cloudy Urine pH 5.0 Ur Specific [place] >= 1.030 Urine Protein 100 H Urine Glucose (UA) Negative Urine Ketones Negative Urine Blood Moderate H Urine Nitrite Negative Urine Bilirubin Negative Urine Urobilinogen 0.2 Ur Leukocyte Esterase Small H Urine RBC 5-10 H Urine WBC 5-10 H Ur Epithelial Cells 3-5 Urine Bacteria Rare Urine Mucus Small Vital Signs 02/08/20 02/08/20 02/08/20 05:27 06:00 06:15 Temperature 98.3 F Pulse Rate 74 Pulse Rate [ 62 60 monitor] Respiratory 18 18 24 Rate Blood Pressure 128/68 125/68 [Left Arm] O2 Sat by Pulse 94 L 89 L 90 L Oximetry 02/08/20 02/08/20 06:30 06:50 Temperature Pulse Rate Pulse Rate [ 56 L monitor] Respiratory 16 22 Rate Blood Pressure 119/62 [Left Arm] O2 Sat by Pulse 92 L Oximetry <Greg Ogden - Last Filed: 02/08/20 08:15> Departure <Maryanne Huynh - Last Filed: 02/08/20 06:52> - Departure Time of Disposition: 08:14 Diet: resume usual diet <Greg Ogden - Last Filed: 02/08/20 08:15> - Departure Clinical Impression: COVID-19, Hypoxic encephalopathy, COPD exacerbation, Hypoxia, Hypercapnia Hypercapnic respiratory failure Qualifiers: Chronicity: acute on chronic Qualified Code(s): J96.22 - Acute and chronic respiratory failure with hypercapnia Disposition: Transfer to Hospital Condition: Fair Departure Forms: ED Discharge - Pt. Copy, Patient Portal Self Enrollment Referrals: DOMINGUEZ BOWLING [Primary Care Provider] - 1-2 Weeks Home Medications: Ambulatory Orders Budesonide (Inhalation) [Budesonide] 0.25 mg INH DAILY 10/23/18 Isosorbide Mononitrate [Imdur] 30 mg PO DAILY 12/25/18 Arformoterol Tartrate [Brovana] 15 mcg INH BID 12/26/19 Finasteride [Proscar] 5 mg PO DAILY 12/26/19 Levothyroxine Sodium 125 mcg PO QAM 12/26/19 Potassium Chloride [K-Tab] 10 meq PO DAILY 12/26/19 Simvastatin 40 mg PO QPM 12/26/19 Tamsulosin HCl [Flomax] 0.4 mg PO DAILY 12/26/19 Albuterol Sulfate Nebs [Proventil Nebs] 2.5 mg INH Q4H PRN 02/01/20 Aspirin [Aspirin Adult Low Dose] 81 mg PO DAILY 02/01/20 Apixaban [Eliquis] 5 mg PO BID #60 tab 02/05/20 Azithromycin Tab [Zithromax Tab] 250 mg PO QD #3 tab 02/05/20 Bifidobacterium Infantis [Align] 4 mg PO BID cap 02/05/20 Cefdinir 300 mg PO BID #14 capsule 02/05/20 Dexamethasone Tab [Decadron Tab] 4 mg PO DAILY #5 tab 02/05/20 guaiFENesin ER TAB [Mucinex Tab] 1,200 mg PO BID tab 02/05/20 Transfer to Outside Facility - Transfer Information Decision to Transfer Date: 02/08/20 Decision to Transfer Time: 07:45 Reason for Transfer: specialized care not available Accepting Provider:: [facility] Accepting Facility: [facility] <Greg Ogden - Last Filed: 02/08/20 08:15>
[2020-02-08] MEDS ORDERED: DEXAMETHASONE INJ 10 MG/ML VIAL IV ONE (05:48)
[2020-02-08] MEDS ORDERED: CEFEPIME 1 GM in SODIUM CHLORIDE 0.9% 50ML 50 ML IVPB ONE (05:58)
--- NOTE | 2020-02-08 06:06 | RAD ---
EXAM: XR Chest, 1 View CLINICAL HISTORY: The patient is 79 years old and is Male; covid TECHNIQUE: Frontal view of the chest. COMPARISON: Chest radiograph February 03, 2020 FINDINGS: LUNGS: Mild subtle interstitial prominence. Improved interstitial opacity within left lower lobe is noted. Linear atelectasis/scarring in the right lung base is noted. PLEURAL SPACE: Unremarkable. No pneumothorax. HEART: The cardiac silhouette is enlarged. MEDIASTINUM: Unremarkable. BONES/JOINTS: Unremarkable. VASCULATURE: Atherosclerosis of the aorta is present. Prominence of central vasculature is noted in stable. IMPRESSION: Improved left lower lobe infiltrate. Otherwise, stable chest. Electronically signed by: Dennise Queen MD 02/08/2020 6:05 AM GEOLOGY PROFESSOR
[2020-02-08] MEDS ORDERED: CEFEPIME IVPB ONE (06:10)
[2020-02-08] MEDS ORDERED: SODIUM CHLORIDE 0.9% IVPB ONE (06:10)
[2020-02-08] MEDS ORDERED: IPRATROPIUM/ALBUTEROL 3 ML VIAL NEB ONE ×2 (06:17)
[2020-02-08] MEDS ORDERED: REMDESIVIR 100 MG ONE ×2 (07:26→07:32)
[2020-02-08] MEDS ORDERED: SODIUM CHLORIDE 0.9% 250ML 250 ML ONE (07:34)
[2020-02-08] MEDS ORDERED: REMDESIVIR 200 MG in SODIUM CHLORIDE 0.9% 250ML 250 ML IVPB SCH (09:00)
[2020-02-08 09:48] VITALS: O2SAT 94
[2020-02-08 09:49] VITALS: BP 136/83; TEMP 97.4
== END 2020-02-08 09:49 | disposition short-term general hospital (02) ==
LOC: ER 05:23
DX: U07.1 COVID-19 (principal); J96.22 Acute and chronic respiratory failure with hypercapnia; J96.21 Acute and chronic respiratory failure with hypoxia; G93.1 Anoxic brain damage, not elsewhere classified; J44.1 Chronic obstructive pulmonary disease with (acute) exacerbation; F03.90 Unspecified dementia, unspecified severity, without behavioral disturbance, psychotic disturbance, mood disturbance, and anxiety; I51.9 Heart disease, unspecified; E07.9 Disorder of thyroid, unspecified; N18.9 Chronic kidney disease, unspecified; I12.9 Hypertensive chronic kidney disease with stage 1 through stage 4 chronic kidney disease, or unspecified chronic kidney disease; Z87.891 Personal history of nicotine dependence; Z79.01 Long term (current) use of anticoagulants; Z79.82 Long term (current) use of aspirin; Z88.5 Allergy status to narcotic agent; Z88.2 Allergy status to sulfonamides; Z99.81 Dependence on supplemental oxygen
CPT/HCPCS: 36600; 71045; 80053; 81001; 82550; 82803; 82805; 83615; 83735; 83880; 84484; 85025; 85379; 85610; 85730; 86140; 87040; 87086; 87635; 93005; 94640; 94660; A4216; J0692; J1100; J7050; J7620

== ENCOUNTER 2020-02-29 07:35 | Emergency (ER) | payer MEDICARE, OTHER ==
[2020-02-29] MEDS ORDERED: IPRATROPIUM/ALBUTEROL 3 ML VIAL NEB ONE (07:45)
--- NOTE | 2020-02-29 08:36 | RAD ---
EXAM: XR Chest, 1 View CLINICAL HISTORY: reported hypoxia and ams TECHNIQUE: Frontal view of the chest. COMPARISON: 02/08/2020 FINDINGS: Lungs: Lungs clear. Pleural space: No pneumothorax or pleural effusion. Heart: Stable cardiac enlargement. Mediastinum: No abnormality noted. Bones/joints: No osseous destruction or sclerosis noted. IMPRESSION: No acute findings in the chest. Electronically signed by: Nina Frausto MD 02/29/2020 8:34 AM RETIREMENT SALES CONSULTANT
--- NOTE | 2020-02-29 08:51 | ED.PDOC ---
History of Present Illness - General Chief Complaint: Respiratory Problem Stated Complaint: low oxygen sats Time Seen by Provider: 02/29/20 07:44 Source: patient, EMS notes reviewed, prison records Exam Limitations: clinical condition - History of Present Illness Initial Comments: The patient is a 79-year-old male sent from the prison secondary to concern for difficulty with arousing the patient and for hypoxia. The prison was apparently very unfamiliar with him. The patient is almost deaf and you do have to yell at him in order for him to hear you. Once he does hear you he does wake up without any difficulty and does respond appropriately. I have seen him several times in the past this is where he how he is. He does not appear to be having any respiratory distress. He is normally on oxygen a couple of liters and when you check the pulse oximetry on his fingers, he always shows oxygen saturations down in the mid 70s however when the pulse oximetry is moved up to the earlobe he is 97 to 99% on his 2 to 3 L nasal cannula. He has no complaints currently. He is pleasant and cooperative. He is a little bit hungry. He has not had a breathing treatment overnight and does have a few scattered wheezes but air movement is good in general. No respiratory distress. Timing/Duration: unsure Severity: mild Improving Factors: nothing Worsening Factors: nothing Associated Symptoms: denies symptoms Allergies/Adverse Reactions: Allergies Hydromorphone [From Dilaudid] Allergy (Severe, Verified 02/01/20 15:51) sob Sulfa Antibiotics Allergy (Intermediate, Verified 02/08/20 05:43) Rash itching Home Medications: Ambulatory Orders Budesonide (Inhalation) [Budesonide] 0.25 mg INH DAILY 10/23/18 Isosorbide Mononitrate [Imdur] 30 mg PO DAILY 12/25/18 Arformoterol Tartrate [Brovana] 15 mcg INH BID 12/26/19 Finasteride [Proscar] 5 mg PO DAILY 12/26/19 Levothyroxine Sodium 125 mcg PO QAM 12/26/19 Potassium Chloride [K-Tab] 10 meq PO DAILY 12/26/19 Tamsulosin HCl [Flomax] 0.4 mg PO DAILY 12/26/19 Albuterol Sulfate Nebs [Proventil Nebs] 2.5 mg INH Q4H PRN 02/01/20 Aspirin [Aspirin Adult Low Dose] 81 mg PO DAILY 02/01/20 Enoxaparin Sodium [Lovenox] 40 mg SUBCU QD 02/29/20 Famotidine 20 mg PO DAILY 02/29/20 Pravastatin Sodium 80 mg PO DAILY 02/29/20 Review of Systems - Review of Systems Constitutional: States: no symptoms reported EENTM: States: no symptoms reported Respiratory: States: cough Cardiology: States: no symptoms reported Gastrointestinal/Abdominal: States: no symptoms reported Genitourinary: States: no symptoms reported Musculoskeletal: States: no symptoms reported Skin: States: no symptoms reported Neurological: States: no symptoms reported Endocrine: States: no symptoms reported All other Systems: No Change from Baseline Past Medical History (General) - Patient Medical History Hx Seizures: No Hx Stroke: No Hx Dementia: Yes - forgetful Hx Asthma: No Hx of COPD: Yes Hx Cardiac Disorders: Yes Hx Congestive Heart Failure: No Hx Pacemaker: No Hx Hypertension: Yes Hx Thyroid Disease: Yes Hx Diabetes: No Hx Gastroesophageal Reflux: No Hx Renal Disease: Yes Hx Cancer: No Hx of HIV: No Hx Hepatitis C: No Hx MRSA: No MRSA Source:: Blood - Vaccination History Hx Tetanus, Diphtheria Vaccination: Yes Hx Influenza Vaccination: Yes Hx Pneumococcal Vaccination: Yes - Social History Hx Tobacco Use: Yes Hx Chewing Tobacco Use: No Hx Alcohol Use: No Hx Substance Use: No Hx Substance Use Treatment: No Hx Depression: No Hx Physical Abuse: No Hx Emotional Abuse: No Hx Suspected Abuse: No - Activities of Daily Living [facility]pc/Assisted Living (if applicable):: [facility] - Female History Patient : No Family Medical History - Family History Father Family History: Unknown Living Status: Physical Exam - Physical Exam General Appearance: Agitated, Alert, Comfortable, No apparent distress Eye Exam: bilateral normal Ears, Nose, Throat: normal pharynx, other - 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 He has a mild amount of wax in the left ear canal but no significant wax in the right ear canal. He does have tympanic membrane scarring. 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 Skin Exam: normal color Comments: Vital Signs - 24 hr 02/29/20 02/29/20 02/29/20 07:45 07:57 08:40 Temperature 97.6 F Pulse Rate [ 63 70 Right Brachial] Respiratory 20 20 20 Rate Blood Pressure 117/78 139/74 [Right Arm] O2 Sat by Pulse 97 99 Oximetry Progress - Progress Progress: 02/29/20 08:53 The patient is a 79-year-old male presenting from the prison secondary to concern for possible altered mental status and hypoxia. The patient is fairly well-known to the hospital here. He does have very advanced hearing loss and once you do yell directly in his ear he does respond completely appropriately. He is alert and understands he is at the hospital. He has no current complaints. The patient does have some COPD and wheezes did improve after breathing treatment. Breathing treatment should be done every 8 hours at least. No respiratory distress. It is important to know that the patient does have significant peripheral vascular disease and does have low pulse oximetry readings on his fingers but normal readings on his earlobes at 2 to 3 L by nasal cannula. The patient may benefit from a sleep apnea study and CPAP at night in the long run. Laboratory work and x-ray were reassuring here. Mental status appears to be baseline. We will transfer the patient back to the long-term care facility for continued care. ER warnings are given for any acute worsening. pablo [email or web address] [id number] 02/29/20 08:56 - Results/Orders Results/Orders: Chest x-ray shows no acute pathology. See report for details. 03/01/20 07:45 EKG STAT EKG shows sinus bradycardia at 58 bpm. Normal axis. Old right bundle branch block. No definitive ST segment or T wave changes indicative of acute ischemia. Borderline R wave progression. Normal QT interval. Laboratory Results - last 24 hr 02/29/20 02/29/20 08:01 08:01 WBC 3.9 L RBC 3.60 L Hgb 10.3 L Hct 31.7 L MCV 88.1 MCH 28.6 MCHC 32.5 L RDW 16.1 H Plt Count 93 L MPV 9.6 Absolute Neuts (auto) 2.70 Absolute Lymphs (auto) 0.80 L Absolute Monos (auto) 0.40 Absolute Eos (auto) 0.00 Absolute Basos (auto) 0.00 Neutrophils % 69.0 Lymphocytes % 20.7 Monocytes % 9.1 H Eosinophils % 0.6 L Basophils % 0.6 Sodium 141 Potassium 4.1 Chloride 96 L Carbon Dioxide 38 H Anion Gap 11.1 L BUN 22 H Creatinine 1.24 BUN/Creatinine Ratio 17.7 Random Glucose 107 H Serum Osmolality 285.1 Calcium 8.5 Total Bilirubin 0.4 AST 15 ALT 15 Alkaline Phosphatase 37 L Creatine Kinase 54 CK-MB (CK-2) 3.4 Troponin I 0.02 B-Natriuretic Peptide 44.6 Serum Total Protein 6.1 L Albumin 3.4 Globulin 2.7 Albumin/Globulin Ratio 1.3 Departure - Departure Clinical Impression: COPD with acute exacerbation Disposition: Discharge to SNF Condition: Fair Departure Forms: ED Discharge - Pt. Copy, Patient Portal Self Enrollment Instructions: Chronic Obstructive Pulmonary Disease (COPD) (DC) Diet: regular diet Activity: increase activity as tolerated Referrals: DOMINGUEZ BOWLING [Primary Care Provider] - 1-2 Weeks Home Medications: Ambulatory Orders Budesonide (Inhalation) [Budesonide] 0.25 mg INH DAILY 10/23/18 Isosorbide Mononitrate [Imdur] 30 mg PO DAILY 12/25/18 Arformoterol Tartrate [Brovana] 15 mcg INH BID 12/26/19 Finasteride [Proscar] 5 mg PO DAILY 12/26/19 Levothyroxine Sodium 125 mcg PO QAM 12/26/19 Potassium Chloride [K-Tab] 10 meq PO DAILY 12/26/19 Tamsulosin HCl [Flomax] 0.4 mg PO DAILY 12/26/19 Albuterol Sulfate Nebs [Proventil Nebs] 2.5 mg INH Q4H PRN 02/01/20 Aspirin [Aspirin Adult Low Dose] 81 mg PO DAILY 02/01/20 Enoxaparin Sodium [Lovenox] 40 mg SUBCU QD 02/29/20 Famotidine 20 mg PO DAILY 02/29/20 Pravastatin Sodium 80 mg PO DAILY 02/29/20 Additional Instructions: The patient is a 79-year-old male presenting from the prison secondary to concern for possible altered mental status and hypoxia. The patient is fairly well-known to the hospital here. He does have very advanced hearing loss and once you do yell directly in his ear he does respond completely appropriately. He is alert and understands he is at the hospital. He has no current complaints. The patient does have some COPD and wheezes did improve after breathing treatment. Breathing treatment should be done every 8 hours at least. No respiratory distress. It is important to know that the patient does have significant peripheral vascular disease and does have low pulse oximetry readings on his fingers but normal readings on his earlobes at 2 to 3 L by nasal cannula. The patient may benefit from a sleep apnea study and CPAP at night in the long run. Laboratory work and x-ray were reassuring here. Mental status appears to be baseline. We will transfer the patient back to the long-term care facility for continued care. ER warnings are given for any acute worsening.
[2020-02-29 09:31] VITALS: BP 128/69; TEMP 97.7; O2SAT 95
== END 2020-02-29 09:31 ==
LOC: ER 07:35
DX: J44.1 Chronic obstructive pulmonary disease with (acute) exacerbation (principal); H91.90 Unspecified hearing loss, unspecified ear; R00.1 Bradycardia, unspecified; I51.9 Heart disease, unspecified; E07.9 Disorder of thyroid, unspecified; N18.9 Chronic kidney disease, unspecified; I12.9 Hypertensive chronic kidney disease with stage 1 through stage 4 chronic kidney disease, or unspecified chronic kidney disease; F03.90 Unspecified dementia, unspecified severity, without behavioral disturbance, psychotic disturbance, mood disturbance, and anxiety; Z87.891 Personal history of nicotine dependence; Z79.899 Other long term (current) drug therapy; Z99.81 Dependence on supplemental oxygen; Z79.82 Long term (current) use of aspirin; Z88.5 Allergy status to narcotic agent; Z88.2 Allergy status to sulfonamides
CPT/HCPCS: 36415; 71045; 80053; 82550; 82553; 83880; 84484; 85025; 93005; 94640; J7620

== ENCOUNTER 2020-03-04 20:21 | Emergency (ER) | payer MEDICARE, OTHER ==
[2020-03-04] MEDS ORDERED: SODIUM CHLORIDE 0.9% (FLUSH) 10 ML SYG IV PRN (20:28)
[2020-03-04] MEDS ORDERED: IPRATROPIUM/ALBUTEROL 3 ML VIAL INH ONE (20:28)
--- NOTE | 2020-03-04 20:49 | ED.PDOC ---
History of Present Illness - General Chief Complaint: Respiratory Problem Stated Complaint: low O2 sats Time Seen by Provider: 03/04/20 20:25 Source: patient, RN notes reviewed, Vital Signs reviewed, [facility] records Exam Limitations: no limitations - History of Present Illness Initial Comments: Patient is a 79-year-old male with past medical history of chronic kidney disease, CHF and COPD requiring continuous oxygen at [facility] and supposed to wear CPAP at night. skilled nursing staff reports that he had a low oxygen saturation tonight and was sent to ED for evaluation. Patient is well-known to this ED and has frequent COPD exacerbations and somnolence due to CO2 retention. Her EMS, patient has not been wearing his CPAP at night for the past several d ays. Patient is somnolent but awakens to loud voice. He has no respiratory distress. He frequently falls back asleep snoring during interview. He denies any chest pain. Allergies/Adverse Reactions: Allergies Hydromorphone [From Dilaudid] Allergy (Severe, Verified 02/01/20 15:51) sob Sulfa Antibiotics Allergy (Intermediate, Verified 02/08/20 05:43) Rash itching Home Medications: Ambulatory Orders Budesonide (Inhalation) [Budesonide] 0.25 mg INH DAILY 10/23/18 Isosorbide Mononitrate [Imdur] 30 mg PO DAILY 12/25/18 Arformoterol Tartrate [Brovana] 15 mcg INH BID 12/26/19 Finasteride [Proscar] 5 mg PO DAILY 12/26/19 Levothyroxine Sodium 125 mcg PO QAM 12/26/19 Potassium Chloride [K-Tab] 10 meq PO DAILY 12/26/19 Tamsulosin HCl [Flomax] 0.4 mg PO DAILY 12/26/19 Albuterol Sulfate Nebs [Proventil Nebs] 2.5 mg INH Q4H PRN 02/01/20 Aspirin [Aspirin Adult Low Dose] 81 mg PO DAILY 02/01/20 Enoxaparin Sodium [Lovenox] 40 mg SUBCU QD 02/29/20 Famotidine 20 mg PO DAILY 02/29/20 Pravastatin Sodium 80 mg PO DAILY 02/29/20 Prednisone 60 mg PO DAILY 5 Days #15 tab 03/05/20 Review of Systems - Review of Systems Constitutional: Denies: chills, fever EENTM: States: no symptoms reported Respiratory: States: cough, short of breath Cardiology: Denies: edema, palpitations Gastrointestinal/Abdominal: Denies: abdominal pain, diarrhea, nausea, vomiting Neurological: States: other - somnolence per NH staff All other Systems: Reviewed and Negative Past Medical History (General) - Patient Medical History Hx Seizures: No Hx Stroke: No Hx Dementia: Yes - forgetful Hx Asthma: No Hx of COPD: Yes Hx Cardiac Disorders: Yes Hx Congestive Heart Failure: No Hx Pacemaker: No Hx Hypertension: Yes Hx Thyroid Disease: Yes Hx Diabetes: No Hx Gastroesophageal Reflux: No Hx Renal Disease: Yes Hx Cancer: No Hx of HIV: No Hx Hepatitis C: No Hx MRSA: No MRSA Source:: Blood - Vaccination History Hx Tetanus, Diphtheria Vaccination: Yes Hx Influenza Vaccination: Yes Hx Pneumococcal Vaccination: Yes - Social History Hx Tobacco Use: Yes Hx Chewing Tobacco Use: No Hx Alcohol Use: No Hx Substance Use: No Hx Substance Use Treatment: No Hx Depression: No Hx Physical Abuse: No Hx Emotional Abuse: No Hx Suspected Abuse: No - Female History Patient : No Family Medical History - Family History Father Family History: Unknown Living Status: Physical Exam - Physical Exam General Appearance: No apparent distress, Other - Pt awakens to loud voice and frequently falls back to sleep Eyes, Ears, Nose, Throat Exam: pharynx normal Neck: full range of motion, supple Respiratory: chest non-tender, lungs clear, other - good air movement with mild wheezes Cardiovascular/Chest: regular rate, rhythm, no edema Gastrointestinal/Abdominal: non tender, soft, no pulsatile mass Extremity: normal range of motion, non-tender, normal inspection Neurologic: other - somnolent but arousable. Moving all extremities Skin Exam: normal color, warm/dry Progress - Progress Progress: 03/04/20 20:51 Pt has h/o COPD with frequent visits for CO2 retention. Will get ABG, place on Bipap, CXR and labs to further evaluate. 03/04/20 22:28 Pt has been on Bipap due to CO2 retention but continues to pull off Bipap mask. He is more alert. CXR showed possible RLL pneumonia. Will get blood cultures, lactic and IV abx 03/05/20 00:30 Pt resting comfortably. He is sleeping with Bipap in place. Hospital here is full. I think he has CO2 retention due to COPD and sleep apnea and has not been wearing his CPAP. Improving with Bipap. Will observe in ED with Bipap treatment. Pt tested + for COVID previously and + test today. No fever, tachycardia or hypotension. Lactic normal. CXR shows possible RLL pneumonia. 03/05/20 06:10 Pt has been sleeping comfortably on Bipap. Will wean to his usual NC and evaluate. 03/05/20 06:17 Patient observed in ED overnight on BiPAP. BiPAP is now off and he is alert and answering questions appropriately. O2 sats is 94% on his usual nasal cannula. He has questionable right lower lobe pneumonia on chest x-ray. Initial CO2 on ABG was 80 which I think was causing his somnolence. Likely has improved on BiPAP for 6 hours as his mental status is improved as well. He is tolerating po fluids well. Lactic acid is normal. He is in no respiratory distress. I have discussed with patient that he must wear CPAP each night because I think he has sleep apnea and without it his CO2 level climbs. Vital signs have been stable and we will plan to transfer back to to [facility] on his usual continuous oxygen and - Results/Orders Results/Orders: EKG NSR, rate 81, nml intervals, nonspecific ST abnormality CHEST XRAY EXAM: XR Chest, 1 View CLINICAL HISTORY: The patient is 79 years old and is Male; sob TECHNIQUE: Single upright portable view of the chest. COMPARISON: February 29, 2020. FINDINGS: Lungs: Hazy opacities in the right lung base. No pulmonary vascular congestion. Pleural space: Unremarkable. No pneumothorax. Heart: The cardiac silhouette is enlarged versus artifact of AP technique. Mediastinum: Unremarkable. Bones/joints: The bones and joints are unchanged as visualized. Upper abdomen: No free air in the visualized upper abdomen. IMPRESSION: Hazy opacities in the right lung base. Correlate clinically for infection. COVID POSITIVE See ABG results in EMR Laboratory Results - last 24 hr 03/04/20 03/04/20 03/04/20 20:29 20:47 20:47 WBC 4.1 L RBC 3.93 L Hgb 11.3 L Hct 35.1 L MCV 89.4 MCH 28.8 MCHC 32.3 L RDW 17.1 H Plt Count 124 L MPV 9.0 Absolute Neuts (auto) 3.00 Absolute Lymphs (auto) 0.70 L Absolute Monos (auto) 0.40 Absolute Eos (auto) 0.00 Absolute Basos (auto) 0.00 Neutrophils % 72.4 Lymphocytes % 17.1 L Monocytes % 8.8 Eosinophils % 1.1 Basophils % 0.6 pCO2 80 H pO2 84 HCO3 42.2 ABG pH 7.332 L ABG O2 Saturation 96.0 ABG Base Excess 13.4 ABG Deoxyhemoglobin 3.9 Oxyhemoglobin % 93.7 L Carboxyhemoglobin % 1.6 H Methemoglobin % Sat 0.8 Calc Total Hemoglobin 10.9 L Sodium 144 Potassium 4.5 Chloride 94 L Carbon Dioxide 41 H Anion Gap 13.5 BUN 21 H Creatinine 1.25 BUN/Creatinine Ratio 16.8 Random Glucose 141 H Serum Osmolality 292.2 Lactic Acid Calcium 9.0 Total Bilirubin 0.4 AST 17 ALT 13 Alkaline Phosphatase 51 B-Natriuretic Peptide 35.4 Serum Total Protein 6.6 Albumin 3.6 Globulin 3.0 Albumin/Globulin Ratio 1.2 03/04/20 22:33 WBC RBC Hgb Hct MCV MCH MCHC RDW Plt Count MPV Absolute Neuts (auto) Absolute Lymphs (auto) Absolute Monos (auto) Absolute Eos (auto) Absolute Basos (auto) Neutrophils % Lymphocytes % Monocytes % Eosinophils % Basophils % pCO2 pO2 HCO3 ABG pH ABG O2 Saturation ABG Base Excess ABG Deoxyhemoglobin Oxyhemoglobin % Carboxyhemoglobin % Methemoglobin % Sat Calc Total Hemoglobin Sodium Potassium Chloride Carbon Dioxide Anion Gap BUN Creatinine BUN/Creatinine Ratio Random Glucose Serum Osmolality Lactic Acid 1.3 Calcium Total Bilirubin AST ALT Alkaline Phosphatase B-Natriuretic Peptide Serum Total Protein Albumin Globulin Albumin/Globulin Ratio Departure - Departure Clinical Impression: Acute respiratory failure with hypoxia and hypercapnia, COPD with acute exacerbation, COVID-19 Pneumonia Qualifiers: Pneumonia type: due to unspecified organism Laterality: right Lung location: lower lobe of lung Qualified Code(s): J18.9 - Pneumonia, unspecified organism Time of Disposition: 06:21 Disposition: Discharge to SNF Departure Forms: ED Discharge - Pt. Copy, Patient Portal Self Enrollment Instructions: Exacerbation of COPD (DC) Diet: low fat, low cholesterol Activity: increase activity as tolerated Referrals: DOMINGUEZ BOWLING [Primary Care Provider] - 1-2 Days Prescriptions: Prednisone 60 mg PO DAILY 5 Days #15 tab Home Medications: Ambulatory Orders Budesonide (Inhalation) [Budesonide] 0.25 mg INH DAILY 10/23/18 Isosorbide Mononitrate [Imdur] 30 mg PO DAILY 12/25/18 Arformoterol Tartrate [Brovana] 15 mcg INH BID 12/26/19 Finasteride [Proscar] 5 mg PO DAILY 12/26/19 Levothyroxine Sodium 125 mcg PO QAM 12/26/19 Potassium Chloride [K-Tab] 10 meq PO DAILY 12/26/19 Tamsulosin HCl [Flomax] 0.4 mg PO DAILY 12/26/19 Albuterol Sulfate Nebs [Proventil Nebs] 2.5 mg INH Q4H PRN 02/01/20 Aspirin [Aspirin Adult Low Dose] 81 mg PO DAILY 02/01/20 Enoxaparin Sodium [Lovenox] 40 mg SUBCU QD 02/29/20 Famotidine 20 mg PO DAILY 02/29/20 Pravastatin Sodium 80 mg PO DAILY 02/29/20 Prednisone 60 mg PO DAILY 5 Days #15 tab 03/05/20 Additional Instructions: Pt must wear CPAP at night as he retains CO2 otherwise. Continue oxygen per nasal canula and breathing treatments with albuterol.
[2020-03-04] MEDS ORDERED: levoFLOXacin 750MG IV 750 MG in PREMIX BAG 1 BAG IVPB ONE (22:14)
[2020-03-04] MEDS ORDERED: DEXAMETHASONE INJ 4 MG/ML VIAL IV ONE (23:06)
[2020-03-05 07:33] VITALS: BP 143/83
[2020-03-05 08:13] VITALS: TEMP 98.1; O2SAT 96
== END 2020-03-05 08:05 ==
LOC: ER 20:21
DX: U07.1 COVID-19 (principal); J96.02 Acute respiratory failure with hypercapnia; J96.01 Acute respiratory failure with hypoxia; J18.9 Pneumonia, unspecified organism; J44.1 Chronic obstructive pulmonary disease with (acute) exacerbation; F03.90 Unspecified dementia, unspecified severity, without behavioral disturbance, psychotic disturbance, mood disturbance, and anxiety; I50.9 Heart failure, unspecified; I13.0 Hypertensive heart and chronic kidney disease with heart failure and stage 1 through stage 4 chronic kidney disease, or unspecified chronic kidney disease; N18.9 Chronic kidney disease, unspecified; E07.9 Disorder of thyroid, unspecified; Z79.82 Long term (current) use of aspirin; Z79.899 Other long term (current) drug therapy; Z88.2 Allergy status to sulfonamides; Z88.5 Allergy status to narcotic agent
CPT/HCPCS: 36415; 36600; 71045; 80053; 82803; 82805; 83605; 83880; 85025; 87040; 87635; 93005; 94640; 94660; 94760; J1100; J1956; J7620